=== PATIENT | female | born 1935 | race Caucasian/White ===

== ENCOUNTER → 2016-07-15 | Outpatient (REF) | payer MEDICARE ==
[~2016-07-15] MED LIST: ASPI81CH PO; ATOR1TAB19 PO; CARV6.25 PO; FURO40TA2 PO; GLIP10TA6 PO; LANTINJ4 SC; LISI-538 PO; METF1000 PO; MOME50SP; OMEP40CA2 PO; TYLE325T5 PO; VESI10TA PO
[2016-07-15 18:45] LABS: BASO % 0.5 % (0.0-1.0); EOS # 0.1 K/mm3 (0.0-0.50); LARGE UNSTAINED CELL # 0.2 K/mm3 (0.0-0.4); LARGE UNSTAINED CELL % 2.4 % (0.0-4.0); MEAN CORPUSCULAR HEMOGLOBIN 29.5 pg (27.0-33.0); MEAN CORPUSCULAR HGB CONC 32.7 g/dl (32.0-36.5); MEAN CORPUSCULAR VOLUME 90.3 fl (80.0-96.0); MONO # 0.5 K/mm3 (0.0-0.8); MONO % 7.2 % (0.0-5.0); NEUTROPHILS % 58.9 % (36.0-66.0); PLATELET COUNT, AUTOMATED 176 k/mm3 (150-450); RED CELL DISTRIBUTION WIDTH 12.7 % (11.5-14.5); WHITE BLOOD COUNT 6.7 K/mm3 (4.0-10.0)
[2016-07-15 19:20] LABS: ALBUMIN 4.1 GM/DL (3.2-5.2); ALBUMIN/GLOBULIN RATIO 1.21 (1.00-1.93); ALKALINE PHOSPHATASE 96 U/L (45-117); ALT/SGPT 27 U/L (12-78); ANION GAP 11 MEQ/L (8-16); AST/SGOT 32 U/L (15-37); BILIRUBIN,TOTAL 0.6 MG/DL (0.2-1.0); BLOOD UREA NITROGEN 19 MG/DL (7-18); CALCIUM LEVEL 9.4 MG/DL (8.8-10.2); CARBON DIOXIDE LEVEL 28 MEQ/L (21-32); CHLORIDE LEVEL 102 MEQ/L (98-107); CREATININE FOR GFR 0.89 MG/DL (0.55-1.02); GLOMERULAR FILTRATION RATE > 60.0 (>39); GLUCOSE, FASTING 132 MG/DL (83-110); POTASSIUM SERUM 4.4 MEQ/L (3.5-5.1); SODIUM LEVEL 141 MEQ/L (136-145); TOTAL PROTEIN 7.5 GM/DL (6.4-8.2)
== END ==
LOC: M SFHCCAPE 11:14
PROVIDERS: ATTEND Physician Assistant
DX: M54.5 Low back pain (principal); R10.9 Unspecified abdominal pain; E11.9 Type 2 diabetes mellitus without complications; Z79.82 Long term (current) use of aspirin; Z79.84 Long term (current) use of oral hypoglycemic drugs; Z79.899 Other long term (current) drug therapy
CPT/HCPCS: 80053; 85025; 86140; 87086; G0463

== ENCOUNTER → 2016-08-06 | Outpatient (CLI) | payer MEDICARE ==
[~2016-08-06] MED LIST changes: +GASTROGRAFIN SOLUTION 30ML (Q9963) As Ordered ONE; +ISOVUE-370 76% 100ML VIAL (Q9967) As Ordered ONE
--- NOTE | 2016-08-06 14:31 | REP ---
Clinical: Intermittent left lower quadrant pain. Technique: Axial contrast enhanced images from the lung bases to the pubic symphysis using oral and 100 ml Isovue 370 intravenous contrast material with coronal and sagittal re-formations. Findings: Lung bases clear. Mild cardiomegaly suggested. Subtle nodular contour to the liver suggests cirrhosis without focal hepatic lesion identified. Spleen, pancreas, gallbladder, bilateral adrenal glands and kidneys are relatively normal. The enteric system is without obstruction or acute inflammatory process. Scattered colonic and sigmoid diverticula noted without acute diverticulitis. Pelvis demonstrates normal bladder and evidence for prior hysterectomy. No free air. No ascites. No adenopathy. Abdominal aorta without aneurysm or dissection. Musculoskeletal structures demonstrate age-related changes without focal osseous abnormality. Impression: Liver contour suggest cirrhosis. Sigmoid diverticula without acute diverticulitis. No acute intra-abdominal or pelvic pathology appreciated. Signed by Kishan Delacruz MD 08/06/2016 02:23 P
== END ==
LOC: M RAD 12:08
PROVIDERS: ATTEND Physician Assistant
DX: R10.32 Left lower quadrant pain (principal)
CPT/HCPCS: 74178; Q9963; Q9967

== ENCOUNTER → 2016-08-20 | Outpatient (CLI) | payer MEDICARE ==
[~2016-08-20] MED LIST changes: -GASTROGRAFIN SOLUTION 30ML (Q9963) As Ordered ONE; -ISOVUE-370 76% 100ML VIAL (Q9967) As Ordered ONE
--- NOTE | 2016-08-20 13:16 | REP ---
CAROTID ULTRASOUND: Real-time ultrasound evaluation and duplex Doppler interrogation of the extracranial carotid vasculature is performed. There is mild plaquing and narrowing in both carotid bulbs extending into the internal and external carotid arteries. Luminal narrowing is less than 50%. There is no evidence of hemodynamically significant stenosis of either internal carotid artery. Normal flow velocities are seen. The vertebral arteries demonstrate normal direction of flow. RIGHT LEFT Peak systolic velocity ICA 77.7 cm/s 83.8 cm/s End diastolic velocity ICA 14.5 cm/s 17.7 cm/s Peak systolic velocity CCA 115.1 cm/s 108.7 cm/s Peak systolic velocity ECA 162 cm/s 59.3 cm/s ICA/CCA ratio 1.5 1.3 IMPRESSION: Bilateral luminal narrowing of the internal carotid arteries less than 50%. No evidence of hemodynamically significant stenosis. Incidental note is made of a nonspecific nodule in the right lobe of the thyroid measuring 6 x 3 x 4 mm. Signed by Marino Alfaro MD 08/20/2016 01:08 P
== END ==
LOC: M RAD 11:14
PROVIDERS: ATTEND Physician Assistant
DX: R09.89 Other specified symptoms and signs involving the circulatory and respiratory systems (principal)

== ENCOUNTER → 2016-08-26 | Outpatient (REF) | payer MEDICARE ==
[2016-08-26 17:14] LABS: ALBUMIN 3.9 GM/DL (3.2-5.2); ALBUMIN/GLOBULIN RATIO 1.15 (1.00-1.93); ALKALINE PHOSPHATASE 113 U/L (45-117); ALT/SGPT 23 U/L (12-78); ANION GAP 6 MEQ/L (8-16); AST/SGOT 29 U/L (15-37); BILIRUBIN,TOTAL 0.5 MG/DL (0.2-1.0); BLOOD UREA NITROGEN 17 MG/DL (7-18); CALCIUM LEVEL 8.7 MG/DL (8.8-10.2); CARBON DIOXIDE LEVEL 32 MEQ/L (21-32); CHLORIDE LEVEL 105 MEQ/L (98-107); CHOLESTEROL LEVEL 128 MG/DL (<200); GLOMERULAR FILTRATION RATE > 60.0 (>39); GLUCOSE, FASTING 136 MG/DL (83-110); POTASSIUM SERUM 4.2 MEQ/L (3.5-5.1); SODIUM LEVEL 143 MEQ/L (136-145); TOTAL PROTEIN 7.3 GM/DL (6.4-8.2); TRIGLYCERIDES LEVEL 111 MG/DL (<150)
[2016-08-26 17:20] LABS: BASO % 0.3 % (0.0-1.0); EOS # 0.2 K/mm3 (0.0-0.50); EOS % 2.6 % (0.0-3.0); LARGE UNSTAINED CELL # 0.1 K/mm3 (0.0-0.4); LYMPH # 1.9 K/mm3 (1.5-4.5); LYMPH % 27.7 % (24.0-44.0); MEAN CORPUSCULAR HEMOGLOBIN 29.8 pg (27.0-33.0); MEAN CORPUSCULAR HGB CONC 31.9 g/dl (32.0-36.5); MEAN CORPUSCULAR VOLUME 93.4 fl (80.0-96.0); MONO # 0.5 K/mm3 (0.0-0.8); MONO % 6.9 % (0.0-5.0); NEUTROPHILS # 4.3 K/mm3 (1.8-7.7); NEUTROPHILS % 60.6 % (36.0-66.0); PLATELET COUNT, AUTOMATED 172 k/mm3 (150-450); RED CELL DISTRIBUTION WIDTH 12.7 % (11.5-14.5)
== END ==
LOC: M SFHCCAPE 07:41
PROVIDERS: ATTEND Physician Assistant
DX: I10 Essential (primary) hypertension (principal); E11.8 Type 2 diabetes mellitus with unspecified complications

== ENCOUNTER → 2016-09-05 | Outpatient (CLI) | payer MEDICARE ==
--- NOTE | 2016-09-05 11:01 | REP ---
Thyroid ultrasound: A thyroid nodules identified on a a carotid ultrasound. The thyroid gland is normal size. The right lobe measures four point Sindi 1 0.5 x 1.5 cm. Left lobe measures 4.5 x 1.6 x 1.3 cm. The isthmus is 5.3 mm thickness. There is a 6 mm nodule in the right lobe upper pole. There is a 3 mm nodule right lobe mid pole. There is a 4 millimeter nodule in the right lobe lower pole. There is a 3 millimeter nodule left lobe upper pole. There is a 3 mm nodule in the left lobe lower. However, the left lateral half of the isthmus is diffusely heterogeneous and hypoechoic. This could represent a large irregular mass in the isthmus. Impression: Possible large irregular mass in the isthmus measuring 11 mm transversely by 4 mm in depth. Ultrasound-guided needle aspiration biopsy of this mass in the isthmus might be considered. There are several small nodules in the right and left lobes as described. Signed by Marino Zeng MD 09/05/2016 10:52 A
== END ==
LOC: M RAD 09:22
PROVIDERS: ATTEND Physician Assistant
DX: E04.9 Nontoxic goiter, unspecified (principal)

== ENCOUNTER → 2016-11-13 | Outpatient (REF) | payer MEDICARE ==
[2016-11-13 18:48] LABS: BASO % 0.6 % (0.0-1.0); EOS # 0.2 K/mm3 (0.0-0.50); EOS % 3.6 % (0.0-3.0); LARGE UNSTAINED CELL # 0.1 K/mm3 (0.0-0.4); LARGE UNSTAINED CELL % 1.7 % (0.0-4.0); LYMPH # 1.7 K/mm3 (1.5-4.5); LYMPH % 29.7 % (24.0-44.0); MEAN CORPUSCULAR HEMOGLOBIN 31.6 pg (27.0-33.0); MEAN CORPUSCULAR HGB CONC 33.3 g/dl (32.0-36.5); MEAN CORPUSCULAR VOLUME 94.9 fl (80.0-96.0); MONO # 0.4 K/mm3 (0.0-0.8); MONO % 7.8 % (0.0-5.0); NEUTROPHILS # 3.1 K/mm3 (1.8-7.7); NEUTROPHILS % 56.6 % (36.0-66.0); PLATELET COUNT, AUTOMATED 167 k/mm3 (150-450); RED CELL DISTRIBUTION WIDTH 12.7 % (11.5-14.5); WHITE BLOOD COUNT 5.5 K/mm3 (4.0-10.0)
[2016-11-13 20:33] LABS: ALBUMIN 3.8 GM/DL (3.2-5.2); ALBUMIN/GLOBULIN RATIO 1.15 (1.00-1.93); BILIRUBIN,TOTAL 0.4 MG/DL (0.2-1.0); CALCIUM LEVEL 9.5 MG/DL (8.8-10.2); CREATININE FOR GFR 1.1 MG/DL (0.55-1.02); GLOMERULAR FILTRATION RATE 50.9 (>32); POTASSIUM SERUM 4.2 MEQ/L (3.5-5.1); TOTAL PROTEIN 7.1 GM/DL (6.4-8.2)
== END ==
LOC: M SFHCCAPE 09:44
PROVIDERS: ATTEND Physician Assistant
DX: K74.60 Unspecified cirrhosis of liver (principal); E11.8 Type 2 diabetes mellitus with unspecified complications

== ENCOUNTER → 2016-11-20 | Outpatient (CLI) | payer MEDICARE ==
[~2016-11-20] MED LIST changes: +ACET160S6 PO; +ASPI1TAB PO; +CARV12.5 PO; +FURO40VL PO; +LISI40TAB PO; +METF500T PO; +PROA1AER INH; +PROBCAP4 PO
--- NOTE | 2016-12-11 00:25 | ECWPNPC ---
PATIENT NAME: GERARDO ELLSWORTH : 1935 GENDER: FEMALE VISIT DATE: 11/20/2016 DISCHARGE DATE: 11/20/16 1454 VISIT LOCKED DATE TIME: PHYSICIAN: GERMANIA DENIS RESOURCE: GERMANIA DENIS REASON FOR APPOINTMENT 1. ABDOMINAL PAIN LEFT HISTORY OF PRESENT ILLNESS TODAY'S VISIT: NOTES: REFERRED FOR FURTHER EVAL AND TREATMENT OF LEFT SIDED ABDOMENAL AND FLANK PAIN BY DR LILIANA MENJIVAR. ONSET OF PAIN WAS GREATER THAN 6 MONTHS AGO. SENSATION IS INTERMITTANT. DOES NOT KEEP HER AWAKE - FEELS LIKE A BEE STING INSIDE. STATRTS AT FLANK AREA AND RADIATES TOWARD THE GROIN. HAD "BUNCH" IN ABD FELT TO BE A FATTY MASS. NOTHING LIKE BEFORE. DOES NOT STOP ACTIVITY. DURATIONS IS A FEW MINUTES AND CAN REMAIN SORE AFTERWARDS. NO KNOWN AGGRAVATING FACTORS. NO KNOWN TRAUMAS OR ACCIDENTS. . FALL RISK SCREENING: SCREENING :NO FALLS IN THE PAST YEAR PAIN SCREENING: PATIENT HAS A COMPLAINT OF ACUTE OR CHRONIC PAIN :YES CURRENT MEDICATIONS TAKING ASPIR-81 81 MG TABLET DELAYED RELEASE 1 TABLET ORALLY ONCE A DAY TAKING TYLENOL EXTRA STRENGTH 500 MG TABLET 2 TABS ORALLY BID PRN, NOTES: HAS BEEN TAKING TID TAKING ONE TOUCH ULTRA TEST STRIPS - STRIPS 1 SQ ONCE A DAY TAKING PROBIOTIC 1 1 TAB(S) ORALLY DAILY TAKING ALCOHOL PREP PADS 70 % MISCELLANEOUS DIRECTED EXTERNALLY BID TAKING PROAIR HFA 108 (90 BASE) MCG/ACT AEROSOL SOLUTION 2 PUFFS NEEDED INHALATION EVERY 4 HRS TAKING ATORVASTATIN CALCIUM 10 MG TABLET 1 TAB(S) ORAL DAILY TAKING LANCETS _ MISCELLANEOUS DIRECTED TEST QD - BID TAKING VESICARE 10 MG TABLET 1 TABLET ORALLY ONCE A DAY TAKING OMEPRAZOLE 40MG 40 MG TABLET 1 TAB(S) ORALLY DAILY TAKING ONETOUCH ULTRA TEST - STRIP TEST ONCE DAILY TAKING CARVEDILOL 12.5MG TABLET 1 TAB(S) ORAL BID TAKING LISINOPRIL 40 40 MG TABLET 1 TAB(S) ORAL DAILY TAKING FUROSEMIDE 40 MG TABLET 1 TABLET ORALLY ONCE A DAY TAKING METFORMIN HCL 500 MG TABLET 1 TABLET WITH LUNCH ORALLY ONCE A DAY TAKING LANTUS SOLOSTAR 100 UNIT/ML SOLUTION PEN-INJECTOR 55 UNITS SUBCUTANEOUS IN THE EVENING TAKING METFORMIN HCL 1000MG TAB 1 TAB BID WITH MEALS NOT-TAKING ZOSTAVAX 99631 UNT/0.65ML SOLUTION RECONSTITUTED DIRECTED SUBCUTANEOUS DIRECTED NOT-TAKING ALBUTEROL SULFATE HFA 108 (90 BASE) MCG/ACT AEROSOL SOLUTION 2 PUFFS NEEDED INHALATION EVERY 4 HRS NOT-TAKING BENADRYL 25 MG TABLET 1-2 TABLETS NEEDED ORALLY EVERY NIGHT BEFORE BED NOT-TAKING CYCLOBENZAPRINE HCL 5 MG TABLET 1 TABLET ORALLY THREE TIMES A DAY NEEDED NOT-TAKING GABAPENTIN 300 MG CAPSULE 1 CAPSULE ORALLY TWICE DAILY MEDICATION LIST REVIEWED AND RECONCILED WITH THE PATIENT PAST MEDICAL HISTORY HYPERTENSION TYPE II DIABETES ARTHRITIS CHF 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 AT ONE POINT SHE HAD POLYPS, HOWEVER THE LAST COLONOSCOPY [address] HENDERSON REVEALED NO POLYPS COLONOSPOPY 11/12/15 FAMILY HISTORY FATHER: 77 YRS, OLD AGE MOTHER: 48 YRS, HEMORRHAGE AFTER CHILDBIRTH SIBLINGS: ALIVE, NO KNOWN MEDICAL PROBLEMS,ONLY LIVING SIBLING.ONE SISTER WITH BREAST CANCER AGE 68,ONE SISTER WITH LEUKEMIA AGE 61 SON(S): ALIVE, DM 1 SISTER(S) - HEALTHY. 2 SON(S) , 2 DAUGHTER(S) - HEALTHY. UNKNOWN FAMILY HX. SOCIAL HISTORY GENERAL: TOBACCO USE ARE YOU A:FORMER SMOKER HOW LONG HAS IT BEEN SINCE YOU LAST SMOKED?> 10 YEARS VAPORNO E-CIGARETTENO BMI CARE GOAL FOLLOW-UP ABOVE NORMAL BMI FOLLOW-UPDIETARY MANAGEMENT EDUCATION, GUIDANCE, AND COUNSELING ALCOHOL SCREENING POINTS: 0, INTERPRETATION: NEGATIVE. RECREATIONAL DRUG USE DENIES. CAFFEINE CAFFEINE USE?NO HIV / HEP-C SCREENING HIV TEST OFFERED TO PATIENT:NO NOT HEP-C TEST OFFERED TO PATIENT:NO BORN [birth year] OCCUPATION: RETIRED. DIET: REGULAR. EXERCISE: NO REGULAR EXERCISE. MARITAL STATUS: . QUAKER [id number] [employer]ANGEL[employer]ANGUAGE ROMANIAN. EDUCATION LEVEL OF EDUCATION:HIGH SCHOOL LEARNING BARRIERS / SPECIAL NEEDS CHANGE FROM LAST VISIT?NO 11/18/2016 BARRIERS TO LEARNING?NO HEARING IMPAIRED?NO VISION IMPAIRED?YES :CORRECTIVE LENSES COGNITIVELY IMPAIRED?NO READINESS TO LEARN?YES LEARNING PREFERENCES?NO LEARNING CAPABILITIES PRESENT?YES EMOTIONAL BARRIERS?NO SPECIAL DEVICES?NO FPGA DESIGN ENGINEER NEEDED?NO NEW PATIENT PAIN DIARY FROM 0-10, WHAT NUMBER IS YOUR PAIN TODAY? 0. PAIN CLINIC PFS, CLERGY, PUBLIC HEALTH REFERRALS PFS REFERRAL NEEDED?NO CLERGY REFERRAL NEEDED?NO PUBLIC HEALTH REFERRAL NEEDED?NO ADVANCE DIRECTIVES HEALTH CARE PROXY?YES NAME OF HCP [facility] CONTACT # FOR HCP DO YOU HAVE A COPY WITH YOU?NO INSTRUCTED TO BRING IN DO YOU HAVE A DNR?NO LIVING WILL?YES DO YOU HAVE A COPY WITH YOU?NO INSTRUCTED TO BRING IN POWER OF PATHOLOGY SECRETARY/TRANSCRIPTIONIST?YES NAME OF POA? [facility] PHONE # OF POA? ABOVE DO YOU HAVE A COPY WITH YOU?NO INSTRUCTED TO BRING IN. RETIRED: YES. TRAVEL OUTSIDE US: NONE. NO DOMESTIC VIOLENCE . IS IN [facility]. NO HISTORY OF EATING DISORDER. NO HISTORY OF PHYSICAL, SEXUAL ABUSE. WEARS SEAT BELTS. CURRENT WITH TETANUS. DID GET PNEUMONIA VACCINE. DOES GET FLU SHOTS. UP TO DATE WITH DENTAL AND EYE EXAMS. SEES [facility] FOR PRIMARY CARE. HOSPITALIZATION/MAJOR DIAGNOSTIC PROCEDURE SURGERIES CHILDBIRTH X 4 REVIEW OF SYSTEMS CONSTITUTIONAL: ANY CHANGE IN YOUR MEDICAL CONDITION? NO . CHILLS NO . FEVER NO . INFECTION: DO YOU HAVE NEW INFECTIONS? NO . DO YOU HAVE HISTORY OF MRSA? NO . MUSCULOSKELETAL: ANY NEW PATTERNS OF PAIN OR NUMBNESS? NO . SYTEMIC LUPUS NO . GASTROENTEROLOGY: ANY NEW CHANGE IN BOWEL CONTROL? NO . BARRETTS ESOPHAGUS NO . CIRRHOSIS NO . HEPATITIS NO . LIVER FAILURE NO . ACID REFLUX YES . UNEXPLAINED WEIGHT LOSS NO . GENITOURINARY: ANY NEW CHANGE IN BLADDER CONTROL? NO . IS THERE A CHANCE YOU COULD BE ? NO . HEMATOLOGY/LYMPH: DO YOU TAKE ANY BLOOD THINNERS? (FOR EXAMPLE- COUMADIN, PLAVIX, AGGRENOX, PLATEL, PRADAXA, OR XARELTO) NO . WHEN WAS YOUR LAST DOSE? DATE: TIME: . LOW PLATELET COUNT NO . SICKLE CELL DISEASE NO . VON WILLIEBRANDS NO . FACTOR V LEIDEN NO . THALLASEMIA NO . ANEMIA NO . EASY BRUISING NO . NEUROLOGY: HAVE YOU FALLEN IN THE PAST 6 MONTHS? NO . ANY NEW EXTREMITY NUMBNESS OR WEAKNESS? NO . HEAD INJURY NO . DEMENTIA NO . CEREBRAL PALSY NO . MULTIPLE SCLEROSIS NO . DIZZINESS NO . HEADACHE NO . STROKES NO . VERTIGO NO . CARDIOLOGY: DO YOU HAVE A PACEMAKER OR DEFIBRILLATOR? NO . ANGINA NO . HEART ATTACK NO . HEART SURGERY NO . CONGESTIVE HEART FAILURE/FLUID OVERLOAD YES . CHEST PAIN NO . HIGH BLOOD PRESSURE ON MEDICATION(S) . IRREGULAR HEART BEAT NO . RESPIRATORY: HAVE YOU BEEN SICK IN THE PAST WEEK? NO . FEVER NO . FLU LIKE SYMPTOMS? NO . CPAP NO . BYPAP NO . ASTHMA YES . EMPHYSEMA NO . CHRONIC LUNG DISEASES NO . SHORTNESS OF BREATH ON EXERTION YES, SOMETIMES . COUGH NO . SNORING YES, NEVER BEEN TESTED FOR ROSS . INTEGUMENTARY: DO YOU HAVE ANY RASHES OR OPEN SORES? NO . ALLERGIC/IMMUNO: ARE YOU ALLERGIC TO SHELLFISH OR IV DYE? NO . ANY NEW ALLERGIES? NO . PSYCHIATRIC: DO YOU HAVE THOUGHTS OF HURTING YOURSELF OR SOMEONE ELSE? NO . ARE YOU ABUSED, NEGLECTED, OR IN AN UNSAFE ENVIRONMENT? NO . ENDOCRINOLOGY: ARE YOU DIABETIC? YES BS THIS A< 130 . THYROID DISORDER THYROID NODULES . OTHER: DO YOU NEED ANY PRESCRIPTIONS? NO . IF YES, PLEASE LIST: ____ . ANY NEW PROBLEMS WITH YOUR MEDICATIONS? NO . WHEN DID YOU LAST EAT? ____ . WHEN DID YOU LAST DRINK? ____ . WHAT DID YOU LAST DRINK? ____ . NAME OF PERSON DRIVING YOU HOME? ____ . DO YOU HAVE ANY OTHER QUESTIONS OR CONCERNS NO . PSYCHOLOGY: BECKS DEPRESSION INVENTORY DID NOT COMPLETE INVENTORY - DENIES SUICIDAL OR HOMICIDAL IDEATION . REVIEWED BY: PROVIDER: GERMANIA JIN . VITAL SIGNS WT 203.2 LBS, HT 63 IN, BMI 35.99 INDEX, BP 190/71 MM HG, REPEAT BP 169/73 MM HG, HR 77 /MIN, RR 18 /MIN, TEMP 97.1 F, OXYGEN SAT % 95%, NA INITIALS SC 13:29, REVIEWED BY: AD. EXAMINATION GENERAL EXAMINATION: PSYCHALERT , ORIENTED X 3 , APPROPRIATE MOOD AND AFFECT . HEENT:NORMOCEPHALIC, NO LYPHADENOPATHY, NO PALPABLR THYROID NODULES. LUNGS:CLEAR TO AUSCULTATION BILATERALLY, NO WHEEZES, RALES OR RHONCHI. HEART:HEART RATE REGULAR, NO MURMURS, CLICK OR RUBS. ABDOMEN:SOFT, NON-TENDER, NO ORGANOMEGALY, BOWEL SOUNDS ARE NORMAL. NO TENDERNESS OVER RIGHT OR LEFT GROIN/ILIO-INGUINAL REGIONS. MUSCULOSKELETAL:TRIGGER POINTS AND TIGHT FIBROUS BANDS FROM LEFT LOW BACK AT L2-3 LEVEL WITH RADIATION TO LEFT FLANK AND ABDOMEN. MINIMAL TENDERNESS WITH PALPATION OVER LUMBAR SPINOUS PROCESSES. , MUSCLE STRENGTH TESTING 5/5 BILATERALUPPER AND LOWER EXTREMITIES. CAN FLEX TO 90 DEGREES, EXTREND TO 10 DEDREES, PAIN WITH ROTATATION. NEG SLR. SOME DISCOMFORT WITH DELTA TESTING LEFT SIDE, AND WITH PELVIC COMPRESSION LEFT SIDE.. EXTREMITIES:NO EDEMA. NEUROLOGIC EXAM:DTR'S 1+ BILATERAL UPPER AND LOWER EXTREMITIES. NO SENSORY DEFICIET TO LIGHT TOUCH OVER LOER EXTREMITIES. DIAGNOSTIC TESTS REVIEWEDMRI OF LUMBAR SPINE COMPLETED 07/09/16 REVIEWED. ASSESSMENTS MYOFASCIAL PAIN ON LEFT SIDE - M79.1 (PRIMARY) TREATMENT MYOFASCIAL PAIN ON LEFT SIDE TRIGGER POINT 3 + FARIHAGERMANIA Arturo 11/20/2016 2:21:35 PM > LEFT FLANK LOW BACK NOTES: CONTINUE HEAT, ICE PACK IF NEEDED. HOLD DIABETES MEDICATIONS MORNING OF INJECTION. CHECK BLOOD SUGAR AM OF PROCEDURE AND BRING RESULTS TO DEPARTMENT. ,TRIGGER POINT INJECTION MATERIAL WAS PRINTED,TRIGGER POINT INJECTION: YOUR EXPERIENCE MATERIAL WAS PRINTED. CLINICAL NOTES: #128 - SCREENING BMI AND F/U PLAN IN : BMI ABOVE NORMAL TODAY. DISCUSSED WITH PATIENT NUTRITIONAL FOOD CHOICES TO ASSIST WITH WEIGHT LOSS. RECCOMMENDED REDUCING SALT, SUGAR, SODA INTAKE. RECOMMEND INCREASE ACTIVITY TO INCLUDE WALKING ON A REGULAR BASIS. PROCEDURE CODES FA211 ESTABILISHED PATIENT [facility] FACILITY CHARGE G8783 BP SCR PRFRM RCMDD DEFIND SCR INTVL G8730 PAIN ASSESS POS TOOL F/U PLAN DOC 3016F PT SCRND UNHLTHY [place] USE 1123F ACP DISCUSS/DSCN MKR DOCD 1036F TOBACCO NON-USER G8427 DOC MEDS VERIFIED W/PT OR RE G8417 BMI >=30 CALCUATE W/FOLLOWUP 3288F FALL RISK ASSESSMENT DOCD DISPOSITION & COMMUNICATION FOLLOW UP AFTER INJECTION (REASON: CHECK AUTH FOR TPI LEFT FLANK/LOW BACK) ELECTRONICALLY SIGNED BY ASA WORLEY ON 12/10/2016 AT 09:06 AM EDT DISCLAIMER : THIS IS A VISIT SUMMARY EXTRACTED FROM THE [employer] [facility] [employer] CHART. IT IS NOT A COPY OF THE [employer] [facility] [employer] PROGRESS NOTE. MTDD
== END ==
LOC: M PAIN 13:20
PROVIDERS: ATTEND Nurse Practitioner Family
DX: G89.29 Other chronic pain (principal); M79.1 Myalgia; M54.32 Sciatica, left side; E11.8 Type 2 diabetes mellitus with unspecified complications; K21.9 Gastro-esophageal reflux disease without esophagitis; E78.5 Hyperlipidemia, unspecified; I11.9 Hypertensive heart disease without heart failure; I50.9 Heart failure, unspecified; I35.9 Nonrheumatic aortic valve disorder, unspecified; I27.2 Other secondary pulmonary hypertension; R32 Unspecified urinary incontinence; J45.909 Unspecified asthma, uncomplicated; G47.9 Sleep disorder, unspecified; K74.60 Unspecified cirrhosis of liver; K44.9 Diaphragmatic hernia without obstruction or gangrene; Z88.0 Allergy status to penicillin; Z88.1 Allergy status to other antibiotic agents; Z79.82 Long term (current) use of aspirin; Z79.4 Long term (current) use of insulin; Z79.899 Other long term (current) drug therapy; Z87.891 Personal history of nicotine dependence

== ENCOUNTER → 2016-11-25 | Outpatient (REF) | payer MEDICARE ==
[~2016-11-25] MED LIST changes: -ACET160S6 PO; -ASPI1TAB PO; -CARV12.5 PO; -FURO40VL PO; -LISI40TAB PO; -METF500T PO; -PROA1AER INH; -PROBCAP4 PO
== END ==
LOC: M SFHCCAPE 16:27
PROVIDERS: ATTEND Physician Assistant
DX: K74.60 Unspecified cirrhosis of liver (principal)

== ENCOUNTER → 2016-12-19 | Outpatient (CLI) | payer MEDICARE ==
[~2016-12-19] MED LIST changes: +ACET160S6 PO; +ASPI1TAB PO; +BUPIVACAINE HCL 0.25% 10 ML VIAL As Ordered ONE; +BUPIVACAINE HCL 0.25% 30 ML VIAL As Ordered ONE; +CARV12.5 PO; +FURO40VL PO; +LISI40TAB PO; -METF1000 PO; +METF10004 PO; +METF500T13 PO; +PROAAER10 INH; +PROBCAP4 PO; +TRIAMCINOLONE ACETONIDE SUSP 40 MG/ML VIAL (J3301) As Ordered ONE; -VESI10TA PO; +VESI10TA2 PO
--- NOTE | 2016-12-28 23:56 | ECWPNPC ---
PATIENT NAME: GERARDO ELLSWORTH : 1935 GENDER: FEMALE VISIT DATE: 12/19/2016 DISCHARGE DATE: 12/19/16 1021 VISIT LOCKED DATE TIME: PHYSICIAN: FRANCISCO LANG RESOURCE: FRANCISCO LANG REASON FOR APPOINTMENT 1. L SIDE/HIP HISTORY OF PRESENT ILLNESS HISTORY OF PRESENT ILLNESS: PAIN THE PATIENT DESCRIBES THE PAIN... FALL RISK SCREENING: SCREENING :NO FALLS IN THE PAST YEAR CURRENT MEDICATIONS TAKING ASPIR-81 81 MG TABLET DELAYED RELEASE 1 TABLET ORALLY ONCE A DAY, NOTES: 12-18-161199 TAKING TYLENOL EXTRA STRENGTH 500 MG TABLET 2 TABS ORALLY BID PRN, NOTES: 12-18-161199 TAKING ONE TOUCH ULTRA TEST STRIPS - STRIPS 1 SQ ONCE A DAY TAKING PROBIOTIC 1 1 TAB(S) ORALLY DAILY, NOTES: 12-18-16799 TAKING ALCOHOL PREP PADS 70 % MISCELLANEOUS DIRECTED EXTERNALLY BID TAKING PROAIR HFA 108 (90 BASE) MCG/ACT AEROSOL SOLUTION 2 PUFFS NEEDED INHALATION EVERY 4 HRS, NOTES: 12-18-162099 TAKING ATORVASTATIN CALCIUM 10 MG TABLET 1 TAB(S) ORAL DAILY, NOTES: 12-17-162099 TAKING LANCETS _ MISCELLANEOUS DIRECTED TEST QD - BID TAKING VESICARE 10 MG TABLET 1 TABLET ORALLY ONCE A DAY, NOTES: 12-18-16799 TAKING OMEPRAZOLE 40MG 40 MG TABLET 1 TAB(S) ORALLY DAILY, NOTES: 12-18-16799 TAKING ONETOUCH ULTRA TEST - STRIP TEST ONCE DAILY TAKING CARVEDILOL 12.5MG TABLET 1 TAB(S) ORAL BID, NOTES: 12-18-16799 TAKING LISINOPRIL 40 40 MG TABLET 1 TAB(S) ORAL DAILY, NOTES: 12-18-16799 TAKING FUROSEMIDE 40 MG TABLET 1 TABLET ORALLY ONCE A DAY, NOTES: 12-18-16799 TAKING METFORMIN HCL 500 MG TABLET 1 TABLET WITH LUNCH ORALLY ONCE A DAY, NOTES: 12-18-161199 TAKING LANTUS SOLOSTAR 100 UNIT/ML SOLUTION PEN-INJECTOR 55 UNITS SUBCUTANEOUS IN THE EVENING, NOTES: 12-18-162099 TAKING METFORMIN HCL 1000MG TAB 1 TAB BID WITH MEALS, NOTES: 12-18-16799 NOT-TAKING ZOSTAVAX 73281 UNT/0.65ML SOLUTION RECONSTITUTED DIRECTED SUBCUTANEOUS DIRECTED NOT-TAKING ALBUTEROL SULFATE HFA 108 (90 BASE) MCG/ACT AEROSOL SOLUTION 2 PUFFS NEEDED INHALATION EVERY 4 HRS NOT-TAKING BENADRYL 25 MG TABLET 1-2 TABLETS NEEDED ORALLY EVERY NIGHT BEFORE BED NOT-TAKING CYCLOBENZAPRINE HCL 5 MG TABLET 1 TABLET ORALLY THREE TIMES A DAY NEEDED NOT-TAKING GABAPENTIN 300 MG CAPSULE 1 CAPSULE ORALLY TWICE DAILY MEDICATION LIST REVIEWED AND RECONCILED WITH THE PATIENT PAST MEDICAL HISTORY HYPERTENSION TYPE II DIABETES ARTHRITIS CHF 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 CONSTITUTIONAL: ANY CHANGE IN YOUR MEDICAL CONDITION? NO . CHILLS NO . FEVER NO . INFECTION: DO YOU HAVE NEW INFECTIONS? NO . DO YOU HAVE HISTORY OF MRSA? NO . MUSCULOSKELETAL: ANY NEW PATTERNS OF PAIN OR NUMBNESS? NO . GASTROENTEROLOGY: ANY NEW CHANGE IN BOWEL CONTROL? NO . GENITOURINARY: ANY NEW CHANGE IN BLADDER CONTROL? NO . IS THERE A CHANCE YOU COULD BE ? NO . HEMATOLOGY/LYMPH: DO YOU TAKE ANY BLOOD THINNERS? (FOR EXAMPLE- COUMADIN, PLAVIX, AGGRENOX, PLATEL, PRADAXA, OR XARELTO) NO . WHEN WAS YOUR LAST DOSE? DATE: TIME: . NEUROLOGY: HAVE YOU FALLEN IN THE PAST 6 MONTHS? NO . ANY NEW EXTREMITY NUMBNESS OR WEAKNESS? NO . CARDIOLOGY: DO YOU HAVE A PACEMAKER OR DEFIBRILLATOR? NO . RESPIRATORY: HAVE YOU BEEN SICK IN THE PAST WEEK? NO . FEVER NO . FLU LIKE SYMPTOMS? NO . COUGH NO . INTEGUMENTARY: DO YOU HAVE ANY RASHES OR OPEN SORES? NO . ALLERGIC/IMMUNO: ARE YOU ALLERGIC TO SHELLFISH OR IV DYE? NO . ANY NEW ALLERGIES? NO . PSYCHIATRIC: DO YOU HAVE THOUGHTS OF HURTING YOURSELF OR SOMEONE ELSE? NO . ARE YOU ABUSED, NEGLECTED, OR IN AN UNSAFE ENVIRONMENT? NO . ENDOCRINOLOGY: ARE YOU DIABETIC? YES FSBS= 195 @ 0630 . OTHER: DO YOU NEED ANY PRESCRIPTIONS? NO . IF YES, PLEASE LIST: ____ . ANY NEW PROBLEMS WITH YOUR MEDICATIONS? NO . WHEN DID YOU LAST EAT? 12/18/16 8PM . WHEN DID YOU LAST DRINK? 12-18-16 8PM . WHAT DID YOU LAST DRINK? PEPSI AND WATER . NAME OF PERSON DRIVING YOU HOME? OFELIA MCKEONCOLBYANDIE . DO YOU HAVE ANY OTHER QUESTIONS OR CONCERNS NO . VITAL SIGNS WT 203.2 LBS, HT 63 IN, BMI 35.99 INDEX, BP 190/70 MM HG, HR 75 /MIN, RR 18 /MIN, TEMP 97.2 F, OXYGEN SAT % 96%, NA INITIALS AW 0850, REVIEWED BY: [email or web address]. ASSESSMENTS MYALGIA - M79.1 (PRIMARY) PROCEDURES PN TRIGGER POINT INJECTION WITH STEROIDS PRE PROCEDURE DIAGNOSIS 1. MYALGIA 2. PAIN AT LEFT LOWER BACK AREA POST PROCEDURE DIAGNOSIS 1. MYALGIA 2. PAIN AT LEFT LOWER BACK AREA PROCEDURE TRIGGER POINT INJECTION AT LEFT LOWER BACK AREA SURGEON DR. FRANCISCO LANG MEATCUTTER NONE ANESTHESIA LOCAL PRE PROCEDURE NOTE THE PATIENT HAS A HISTORY OF CHRONIC PAIN AT THE LEFT LOWER BACK AREA. I EVALUATE THE PATIENT AND REVIEWED THE CHART. THERE IS EVIDENCE OF BANDS OF TISSUE WITH RESTRICTION OF MOVEMENT AND PRESENCE OF TRIGGER POINT AT THE AFFECTED AREA. I WENT OVER THE RISKS, ALTERNATIVES, AND BENEFITS ASSOCIATED WITH THIS PROCEDURE. THE PATIENT WOULD LIKE TO PROCEED AND GIVE CONSENT TO PERFORMED THE PROCEDURE. THE PATIENT DENIES UNEXPLAINABLE WEIGHT LOSS, FEVER, CHILLS, OR NEW CHANGES IN URINARY OR BOWEL CONTROL DESCRIPTION OF PROCEDURE THE PATIENT WAS BROUGHT TO THE PROCEDURE ROOM AND PLACED IN THE SITTING POSITION. THE AREA WAS CLEANED WITH ALCOHOL. THE PROCEDURE WAS DONE USING ASEPTIC STERILE TECHNIQUE. I CHECKED LATERALITY AND THE LEVEL WHERE THE PROCEDURE WAS GOING TO BE PERFORMED WITH THE PATIENT AND THE SUPPORTING STAFF AT THE MOMENT OF THE TIME OUT IN THE PROCEDURE ROOM. USING A 25-GAUGE NEEDLE, TRIGGER POINTS WERE INJECTED AT THE LEFT LOWER BACK AREA WITH A TOTAL OF 40 ML OF BUPIVACAINE 0.25% AND KENALOG 40 MG. THERE WAS NO EVIDENCE OF BLOOD, PARESTHESIA OR CEREBROSPINAL FLUID DURING THE PROCEDURE. THE PATIENT WAS SENT TO THE RECOVERY ROOM. THE PATIENT WAS MOVING THE EXTREMITIES AND DOING WELL. THERE WAS NO COMPLICATION DURING THE PROCEDURE POST PROCEDURE NOTE THE PATIENT WILL BE SEEN IN A FOLLOW UP IN THE NEXT FEW WEEKS. INSTRUCTIONS WERE GIVEN, QUESTIONS WERE ANSWERED, AND THE PATIENT EXPRESSED UNDERSTANDING AND AGREES WITH THE PLAN. I, JONI KEARNS, DOCUMENTED THE ABOVE INFORMATION ACTING A SCRIBE FOR DR. LANG. I, DR. LANG, HAVE REVIEWED THE ABOVE DOCUMENT, SCRIBED BY JONI SHAMPINE, AND I VERIFY THAT IT IS ACCURATE PROCEDURE CODES 88474 INJ TRIGGER POINT 1/2 MUSCL DISPOSITION & COMMUNICATION FOLLOW UP 3 WEEKS ELECTRONICALLY SIGNED BY FRANCISCO LANG MD ON 12/28/2016 AT 07:29 PM EDT DISCLAIMER : THIS IS A VISIT SUMMARY EXTRACTED FROM THE [employer] CHART. IT IS NOT A COPY OF THE [employer] PROGRESS NOTE. DAVID
== END ==
LOC: M PAIN 08:30
PROVIDERS: ATTEND Anesthesiology
DX: G89.29 Other chronic pain (principal); M79.1 Myalgia; M54.5 Low back pain; Z79.82 Long term (current) use of aspirin; Z79.84 Long term (current) use of oral hypoglycemic drugs; Z79.4 Long term (current) use of insulin; Z79.899 Other long term (current) drug therapy; Z88.0 Allergy status to penicillin; Z88.1 Allergy status to other antibiotic agents
CPT/HCPCS: 20552; J3301

== ENCOUNTER → 2016-12-24 | Outpatient (CLI) | payer MEDICARE ==
[~2016-12-24] VITALS: Ht 157.5 cm; Wt 91.6 kg
[~2016-12-24] MED LIST changes: -BUPIVACAINE HCL 0.25% 10 ML VIAL As Ordered ONE; -BUPIVACAINE HCL 0.25% 30 ML VIAL As Ordered ONE; +LIDOCAINE 2% INJ 100 MG/5 ML SYRINGE As Ordered ONE; +NS 1,000 ML IV ONE; +PROPOFOL 200 MG/20 ML VIAL As Ordered ONE; -TRIAMCINOLONE ACETONIDE SUSP 40 MG/ML VIAL (J3301) As Ordered ONE
--- NOTE | 2016-12-24 10:50 | ROOR ---
Patient Name: May Walden Procedure Date: 12/24/2016 10:37 AM Date of : 1935 Age: 81 Room: [facility] Gender: Female Note Status: Finalized Procedure: Upper GI endoscopy Indications: Cirrhosis rule out esophageal varices Providers: Gianni Morrow MD Referring MD: SIERRA WELSH DO Requesting Provider: Medicines: Monitored Anesthesia Care Complications: No immediate complications. Procedure: Pre-Anesthesia Assessment: - The heart rate, respiratory rate, oxygen saturations, blood pressure, adequacy of pulmonary ventilation, and response to care were monitored throughout the procedure. The Endoscope was introduced through the mouth, and advanced to the second part of duodenum. The upper GI endoscopy was accomplished without difficulty. The patient tolerated the procedure well. Findings: The Z-line was regular and was found 40 cm from the incisors. There is no endoscopic evidence of varices in the entire esophagus. No other significant abnormalities were identified in a careful examination of the stomach. The exam of the duodenum was otherwise normal. Impression: - Z-line regular, 40 cm from the incisors. - No specimens collected. - The examination was otherwise normal. Recommendation: - Discharge patient to home. - Resume previous diet. - Continue present medications. - Return to referring physician. - Follow an antireflux regimen. - The findings and recommendations were discussed with the patient's family. Gianni Morrow MD Gianni Morrow MD 12/24/2016 10:50:04 AM This report has been signed electronically. Number of Addenda: 0 Note Initiated On: 12/24/2016 10:37 AM Estimated Blood Loss: Estimated blood loss: none.
--- NOTE | 2016-12-24 11:06 | ROOR ---
Patient Name: May Walden Procedure Date: 12/24/2016 10:38 AM Date of : 1935 Age: 81 Room: [facility] Gender: Female Note Status: Finalized Procedure: Total Colonoscopy to Cecum Indications: High risk colon cancer surveillance: Personal history of adenoma with villous component, Last colonoscopy: 2014 Providers: Gianni Morrow MD Referring MD: SIERRA WELSH DO Requesting Provider: Medicines: Monitored Anesthesia Care Complications: No immediate complications. Procedure: Pre-Anesthesia Assessment: - The heart rate, respiratory rate, oxygen saturations, blood pressure, adequacy of pulmonary ventilation, and response to care were monitored throughout the procedure. The Colonoscope was introduced through the anus and advanced to the cecum, identified by appendiceal orifice and ileocecal valve. The colonoscopy was performed without difficulty. The patient tolerated the procedure well. The quality of the bowel preparation was excellent. Findings: The perianal and digital rectal examinations were normal. Non-bleeding internal hemorrhoids were found during retroflexion. The hemorrhoids were small and Grade I (internal hemorrhoids that do not prolapse). 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 No other significant abnormalities were identified in a careful examination of the remainder of the colon. The exam was otherwise without abnormality on direct and retroflexion views. Impression: - Non-bleeding internal hemorrhoids. - Rectal varices. - The examination was otherwise normal on direct and retroflexion views. - No specimens collected. - The exam was otherwise normal to the cecum. Recommendation: - Patient has a contact number available for emergencies. The signs and symptoms of potential delayed complications were discussed with the patient. Return to normal activities tomorrow. Written discharge instructions were provided to the patient. - High fiber diet. - Discharge patient to home. - Continue present medications. - Repeat colonoscopy for symptoms only. - Return to referring physician. - The findings and recommendations were discussed with the patient's family. Gianni Morrow MD Gianni Morrow MD 12/24/2016 11:06:05 AM This report has been signed electronically. Number of Addenda: 0 Note Initiated On: 12/24/2016 10:38 AM Estimated Blood Loss: Estimated blood loss: none.
[2016-12-24 11:30] VITALS: BP 189/95
== END | disposition home or self-care (01) ==
LOC: M OPP 09:22
PROVIDERS: ATTEND Internal Medicine Gastroenterology
DX: Z09 Encounter for follow-up examination after completed treatment for conditions other than malignant neoplasm (principal); Z86.010 Personal history of colon polyps; K64.0 First degree hemorrhoids; I86.4 Gastric varices; K74.60 Unspecified cirrhosis of liver; K21.9 Gastro-esophageal reflux disease without esophagitis; I10 Essential (primary) hypertension; E78.5 Hyperlipidemia, unspecified; R01.1 Cardiac murmur, unspecified; E11.9 Type 2 diabetes mellitus without complications; K44.9 Diaphragmatic hernia without obstruction or gangrene; R12 Heartburn; M19.90 Unspecified osteoarthritis, unspecified site; J45.909 Unspecified asthma, uncomplicated; R32 Unspecified urinary incontinence; Z87.891 Personal history of nicotine dependence; Z88.0 Allergy status to penicillin; Z88.2 Allergy status to sulfonamides; Z79.82 Long term (current) use of aspirin; Z79.4 Long term (current) use of insulin; Z79.84 Long term (current) use of oral hypoglycemic drugs; Z79.899 Other long term (current) drug therapy; Z80.0 Family history of malignant neoplasm of digestive organs; Z80.3 Family history of malignant neoplasm of breast; Z80.1 Family history of malignant neoplasm of trachea, bronchus and lung; Z80.6 Family history of leukemia; Z80.42 Family history of malignant neoplasm of prostate

== ENCOUNTER → 2017-01-05 | Outpatient (CLI) | payer MEDICARE ==
[~2017-01-05] MED LIST changes: -LIDOCAINE 2% INJ 100 MG/5 ML SYRINGE As Ordered ONE; -NS 1,000 ML IV ONE; -PROPOFOL 200 MG/20 ML VIAL As Ordered ONE
--- NOTE | 2017-01-26 00:07 | ECWPNPC ---
PATIENT NAME: GREARDO ELLSWORTH : 1935 GENDER: FEMALE VISIT DATE: 01/05/2017 DISCHARGE DATE: 01/05/17 0945 VISIT LOCKED DATE TIME: PHYSICIAN: GERMANIA DENIS RESOURCE: GERMANIA DENIS REASON FOR APPOINTMENT 1. POST PROCEDURE HISTORY OF PRESENT ILLNESS HISTORY OF PRESENT ILLNESS: PAIN THE PATIENT DESCRIBES THE PAIN... FALL RISK SCREENING: SCREENING :NO FALLS IN THE PAST YEAR TODAY'S VISIT: NOTES: RATES PAIN LEVEL TODAY 07/01. S/P TPI 12/19/16 NOTES ALMOST NO BACK PAIN BUT IS STILL HAVING "BEE STNGS" IN RIGHT FLANK AND ABD. THESE ARE INTERMITTANT AND DO NOT OCCUR IN CLUSTER. THESE CAN VARY IN INTENSITY. . CURRENT MEDICATIONS TAKING ASPIR-81 81 MG TABLET DELAYED RELEASE 1 TABLET ORALLY ONCE A DAY TAKING TYLENOL EXTRA STRENGTH 500 MG TABLET 2 TABS ORALLY BID PRN TAKING ONE TOUCH ULTRA TEST STRIPS - STRIPS 1 SQ ONCE A DAY TAKING PROBIOTIC 1 1 TAB(S) ORALLY DAILY TAKING ALCOHOL PREP PADS 70 % MISCELLANEOUS DIRECTED EXTERNALLY BID TAKING PROAIR HFA 108 (90 BASE) MCG/ACT AEROSOL SOLUTION 2 PUFFS NEEDED INHALATION EVERY 4 HRS TAKING ATORVASTATIN CALCIUM 10 MG TABLET 1 TAB(S) ORAL DAILY TAKING LANCETS _ MISCELLANEOUS DIRECTED TEST QD - BID TAKING VESICARE 10 MG TABLET 1 TABLET ORALLY ONCE A DAY TAKING OMEPRAZOLE 40MG 40 MG TABLET 1 TAB(S) ORALLY DAILY TAKING ONETOUCH ULTRA TEST - STRIP TEST ONCE DAILY TAKING CARVEDILOL 12.5MG TABLET 1 TAB(S) ORAL BID TAKING LISINOPRIL 40 40 MG TABLET 1 TAB(S) ORAL DAILY TAKING FUROSEMIDE 40 MG TABLET 1 TABLET ORALLY ONCE A DAY TAKING METFORMIN HCL 500 MG TABLET 1 TABLET WITH LUNCH ORALLY ONCE A DAY TAKING LANTUS SOLOSTAR 100 UNIT/ML SOLUTION PEN-INJECTOR 55 UNITS SUBCUTANEOUS IN THE EVENING TAKING METFORMIN HCL 1000MG TAB 1 TAB BID WITH MEALS NOT-TAKING ZOSTAVAX 87784 UNT/0.65ML SOLUTION RECONSTITUTED DIRECTED SUBCUTANEOUS DIRECTED NOT-TAKING ALBUTEROL SULFATE HFA 108 (90 BASE) MCG/ACT AEROSOL SOLUTION 2 PUFFS NEEDED INHALATION EVERY 4 HRS NOT-TAKING BENADRYL 25 MG TABLET 1-2 TABLETS NEEDED ORALLY EVERY NIGHT BEFORE BED NOT-TAKING CYCLOBENZAPRINE HCL 5 MG TABLET 1 TABLET ORALLY THREE TIMES A DAY NEEDED NOT-TAKING GABAPENTIN 300 MG CAPSULE 1 CAPSULE ORALLY TWICE DAILY MEDICATION LIST REVIEWED AND RECONCILED WITH THE PATIENT PAST MEDICAL HISTORY HYPERTENSION TYPE II DIABETES ARTHRITIS CHF 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 CONSTITUTIONAL: ANY CHANGE IN YOUR MEDICAL CONDITION? NO . CHILLS NO . FEVER NO . INFECTION: DO YOU HAVE NEW INFECTIONS? NO . DO YOU HAVE HISTORY OF MRSA? NO . MUSCULOSKELETAL: ANY NEW PATTERNS OF PAIN OR NUMBNESS? YES, LEFT LOWER ABDOMEN, AND A LITTLE IN THE LEFT LOWER BACK. . GASTROENTEROLOGY: ANY NEW CHANGE IN BOWEL CONTROL? NO . GENITOURINARY: ANY NEW CHANGE IN BLADDER CONTROL? NO . IS THERE A CHANCE YOU COULD BE ? NO . HEMATOLOGY/LYMPH: DO YOU TAKE ANY BLOOD THINNERS? (FOR EXAMPLE- COUMADIN, PLAVIX, AGGRENOX, PLATEL, PRADAXA, OR XARELTO) NO . WHEN WAS YOUR LAST DOSE? DATE: TIME: . NEUROLOGY: HAVE YOU FALLEN IN THE PAST 6 MONTHS? NO . ANY NEW EXTREMITY NUMBNESS OR WEAKNESS? NO . CARDIOLOGY: DO YOU HAVE A PACEMAKER OR DEFIBRILLATOR? NO . RESPIRATORY: HAVE YOU BEEN SICK IN THE PAST WEEK? NO . FEVER NO . FLU LIKE SYMPTOMS? NO . COUGH NO . INTEGUMENTARY: DO YOU HAVE ANY RASHES OR OPEN SORES? NO . ALLERGIC/IMMUNO: ARE YOU ALLERGIC TO SHELLFISH OR IV DYE? NO . ANY NEW ALLERGIES? NO . PSYCHIATRIC: DO YOU HAVE THOUGHTS OF HURTING YOURSELF OR SOMEONE ELSE? NO . ARE YOU ABUSED, NEGLECTED, OR IN AN UNSAFE ENVIRONMENT? NO . ENDOCRINOLOGY: ARE YOU DIABETIC? YES . OTHER: DO YOU NEED ANY PRESCRIPTIONS? NO . IF YES, PLEASE LIST: ____ . ANY NEW PROBLEMS WITH YOUR MEDICATIONS? NO . WHEN DID YOU LAST EAT? ____ . WHEN DID YOU LAST DRINK? ____ . WHAT DID YOU LAST DRINK? ____ . NAME OF PERSON DRIVING YOU HOME? ____ . DO YOU HAVE ANY OTHER QUESTIONS OR CONCERNS NO . VITAL SIGNS WT 200.8 LBS, HT 63 IN, BMI 35.57 INDEX, BP 191/81 MM HG, HR 75 /MIN, RR 18 /MIN, TEMP 97.1 F, OXYGEN SAT % 95%, NA INITIALS SC 08:54, REVIEWED BY: PIETRO. EXAMINATION GENERAL EXAMINATION: PSYCHALERT , ORIENTED X 3 , APPROPRIATE MOOD AND AFFECT . LUNGS:CLEAR TO AUSCULTATION BILATERALLY, NO WHEEZES, RALES OR RHONCHI. HEART:HEART RATE REGULAR, NO MURMURS, CLICK OR RUBS. ABDOMEN:SOFT, NON-TENDER, NO ORGANOMEGALY, BOWEL SOUNDS ARE NORMAL. NO TENDERNESS OVER RIGHT OR LEFT GROIN/ILIO-INGUINAL REGIONS. MUSCULOSKELETAL:TRIGGER POINTS AND TIGHT FIBROUS BANDS FROM LEFT LOW BACK AT L2-3 LEVEL WITH RADIATION TO LEFT FLANK AND ABDOMEN. MINIMAL TENDERNESS WITH PALPATION OVER LUMBAR SPINOUS PROCESSES. , MUSCLE STRENGTH TESTING 5/5 BILATERALUPPER AND LOWER EXTREMITIES. CAN FLEX TO 90 DEGREES,. EXTREMITIES:NO EDEMA. NEUROLOGIC EXAM:DTR'S 1+ BILATERAL UPPER AND LOWER EXTREMITIES. NO SENSORY DEFICIET TO LIGHT TOUCH OVER LOER EXTREMITIES. ASSESSMENTS MYALGIA - M79.1 (PRIMARY) TREATMENT MYALGIA TRIGGER POINT 3 + GERMANIA FRIED 01/05/2017 9:34:50 AM > ABDOMEN AND FLANK LEFT SIDE NOTES: CONTINUE EXERCISES AND STRETCHES,TRIGGER POINT INJECTION MATERIAL WAS PRINTED. PROCEDURE CODES FA211 ESTABILISHED PATIENT [facility] FACILITY CHARGE G8730 PAIN ASSESS POS TOOL F/U PLAN DOC G8427 DOC MEDS VERIFIED W/PT OR RE DISPOSITION & COMMUNICATION FOLLOW UP AFTER INJECTION (REASON: CHECK AUTH FOR TPI) ELECTRONICALLY SIGNED BY ASA WORLEY ON 01/25/2017 AT 12:34 PM EDT DISCLAIMER : THIS IS A VISIT SUMMARY EXTRACTED FROM THE [employer] CHART. IT IS NOT A COPY OF THE [employer] PROGRESS NOTE. MTDD
== END ==
LOC: M PAIN 08:40
PROVIDERS: ATTEND Nurse Practitioner Family
DX: G89.29 Other chronic pain (principal); M54.5 Low back pain; M79.1 Myalgia; I11.0 Hypertensive heart disease with heart failure; E11.8 Type 2 diabetes mellitus with unspecified complications; M19.90 Unspecified osteoarthritis, unspecified site; K21.9 Gastro-esophageal reflux disease without esophagitis; E78.5 Hyperlipidemia, unspecified; I35.9 Nonrheumatic aortic valve disorder, unspecified; I27.2 Other secondary pulmonary hypertension; J45.909 Unspecified asthma, uncomplicated; G47.9 Sleep disorder, unspecified; K74.60 Unspecified cirrhosis of liver; Z88.0 Allergy status to penicillin; Z88.3 Allergy status to other anti-infective agents; Z79.82 Long term (current) use of aspirin; Z79.4 Long term (current) use of insulin; Z79.899 Other long term (current) drug therapy

== ENCOUNTER → 2017-01-27 | Outpatient (CLI) | payer MEDICARE ==
[~2017-01-27] MED LIST changes: +BUPIVACAINE HCL 0.25% 10 ML VIAL As Ordered ONE; +BUPIVACAINE HCL 0.25% 30 ML VIAL As Ordered ONE; +TRIAMCINOLONE ACETONIDE SUSP 40 MG/ML VIAL (J3301) As Ordered ONE
--- NOTE | 2017-02-10 00:48 | ECWPNPC ---
PATIENT NAME: GERARDO ELLSWORTH : 1935 GENDER: FEMALE VISIT DATE: 01/27/2017 DISCHARGE DATE: 01/27/17 1018 VISIT LOCKED DATE TIME: PHYSICIAN: FRANCISCO LANG RESOURCE: FRANCISCO LANG REASON FOR APPOINTMENT 1. ABDOMINAL FLANK, L SIDE HISTORY OF PRESENT ILLNESS HISTORY OF PRESENT ILLNESS: PAIN THE PATIENT DESCRIBES THE PAIN... FALL RISK SCREENING: SCREENING :NO FALLS IN THE PAST YEAR CURRENT MEDICATIONS TAKING ASPIR-81 81 MG TABLET DELAYED RELEASE 1 TABLET ORALLY ONCE A DAY, NOTES: 01/26 1400 TAKING TYLENOL EXTRA STRENGTH 500 MG TABLET 2 TABS ORALLY BID PRN, NOTES: 01/26 2130 TAKING ONE TOUCH ULTRA TEST STRIPS - STRIPS 1 SQ ONCE A DAY TAKING PROBIOTIC 1 1 TAB(S) ORALLY DAILY, NOTES: 01/27 800 TAKING ALCOHOL PREP PADS 70 % MISCELLANEOUS DIRECTED EXTERNALLY BID TAKING PROAIR HFA 108 (90 BASE) MCG/ACT AEROSOL SOLUTION 2 PUFFS NEEDED INHALATION EVERY 4 HRS, NOTES: 01/25 TAKING ATORVASTATIN CALCIUM 10 MG TABLET 1 TAB(S) ORAL DAILY, NOTES: 01/26 2130 TAKING LANCETS _ MISCELLANEOUS DIRECTED TEST QD - BID TAKING VESICARE 10 MG TABLET 1 TABLET ORALLY ONCE A DAY, NOTES: 01/27 800 TAKING OMEPRAZOLE 40MG 40 MG TABLET 1 TAB(S) ORALLY DAILY, NOTES: 01/27 800 TAKING ONETOUCH ULTRA TEST - STRIP TEST ONCE DAILY TAKING CARVEDILOL 12.5MG TABLET 1 TAB(S) ORAL BID, NOTES: 01/26 2130 TAKING LISINOPRIL 40 40 MG TABLET 1 TAB(S) ORAL DAILY, NOTES: 01/27 800 TAKING FUROSEMIDE 40 MG TABLET 1 TABLET ORALLY ONCE A DAY, NOTES: 01/27 800 TAKING METFORMIN HCL 1000 MG TABLET 1 TAB ORALLY BID, NOTES: 01/26 2130 TAKING LANTUS SOLOSTAR 100 UNIT/ML SOLUTION PEN-INJECTOR 55 UNITS SUBCUTANEOUS IN THE EVENING, NOTES: 01/26 2200 TAKING METFORMIN HCL 500 MG TABLET 1 TAB ORALLY AT LUNCH TIME, NOTES: 01/26 1400 NOT-TAKING ZOSTAVAX 70783 UNT/0.65ML SOLUTION RECONSTITUTED DIRECTED SUBCUTANEOUS DIRECTED NOT-TAKING ALBUTEROL SULFATE HFA 108 (90 BASE) MCG/ACT AEROSOL SOLUTION 2 PUFFS NEEDED INHALATION EVERY 4 HRS NOT-TAKING BENADRYL 25 MG TABLET 1-2 TABLETS NEEDED ORALLY EVERY NIGHT BEFORE BED NOT-TAKING CYCLOBENZAPRINE HCL 5 MG TABLET 1 TABLET ORALLY THREE TIMES A DAY NEEDED NOT-TAKING GABAPENTIN 300 MG CAPSULE 1 CAPSULE ORALLY TWICE DAILY MEDICATION LIST REVIEWED AND RECONCILED WITH THE PATIENT PAST MEDICAL HISTORY HYPERTENSION TYPE II DIABETES ARTHRITIS CHF 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 CONSTITUTIONAL: ANY CHANGE IN YOUR MEDICAL CONDITION? NO . CHILLS NO . FEVER NO . INFECTION: DO YOU HAVE NEW INFECTIONS? NO . DO YOU HAVE HISTORY OF MRSA? NO . MUSCULOSKELETAL: ANY NEW PATTERNS OF PAIN OR NUMBNESS? NO . GASTROENTEROLOGY: ANY NEW CHANGE IN BOWEL CONTROL? NO . GENITOURINARY: ANY NEW CHANGE IN BLADDER CONTROL? NO . IS THERE A CHANCE YOU COULD BE ? NO . HEMATOLOGY/LYMPH: DO YOU TAKE ANY BLOOD THINNERS? (FOR EXAMPLE- COUMADIN, PLAVIX, AGGRENOX, PLATEL, PRADAXA, OR XARELTO) NO . WHEN WAS YOUR LAST DOSE? DATE: TIME: . NEUROLOGY: HAVE YOU FALLEN IN THE PAST 6 MONTHS? NO . ANY NEW EXTREMITY NUMBNESS OR WEAKNESS? NO . CARDIOLOGY: DO YOU HAVE A PACEMAKER OR DEFIBRILLATOR? NO . RESPIRATORY: HAVE YOU BEEN SICK IN THE PAST WEEK? NO . FEVER NO . FLU LIKE SYMPTOMS? NO . COUGH NO . INTEGUMENTARY: DO YOU HAVE ANY RASHES OR OPEN SORES? NO . ALLERGIC/IMMUNO: ARE YOU ALLERGIC TO SHELLFISH OR IV DYE? NO . ANY NEW ALLERGIES? NO . PSYCHIATRIC: DO YOU HAVE THOUGHTS OF HURTING YOURSELF OR SOMEONE ELSE? NO . ARE YOU ABUSED, NEGLECTED, OR IN AN UNSAFE ENVIRONMENT? NO . ENDOCRINOLOGY: ARE YOU DIABETIC? YES, FSBS 145 THIS A.M. . OTHER: DO YOU NEED ANY PRESCRIPTIONS? NO . IF YES, PLEASE LIST: ____ . ANY NEW PROBLEMS WITH YOUR MEDICATIONS? NO . WHEN DID YOU LAST EAT? 01/26 1900 . WHEN DID YOU LAST DRINK? 01/26 1900 . WHAT DID YOU LAST DRINK? MILK . NAME OF PERSON DRIVING YOU HOME? GRANDSON--BRYAN . DO YOU HAVE ANY OTHER QUESTIONS OR CONCERNS NO . VITAL SIGNS WT 207.4 LBS, HT 63 IN, BMI 36.74 INDEX, BP 196/80 MANUAL, HR 61 /MIN, RR 16 /MIN, TEMP 97.9 F, OXYGEN SAT % 97%, NA INITIALS SC 08:55, REVIEWED BY: CLARISSA. ASSESSMENTS MYALGIA - M79.1 (PRIMARY) PROCEDURES PN TRIGGER POINT INJECTION WITH STEROIDS PRE PROCEDURE DIAGNOSIS 1. MYALGIA 2. PAIN AT LEFT ABDOMINAL WALL AREA POST PROCEDURE DIAGNOSIS 1. MYALGIA 2. PAIN AT LEFT ABDOMINAL WALL AREA PROCEDURE TRIGGER POINT INJECTION AT LEFT ABDOMINAL WALL AREA SURGEON DR. FRANCISCO LANG PARTS CLEANER NONE ANESTHESIA LOCAL PRE PROCEDURE NOTE THE PATIENT HAS A HISTORY OF CHRONIC PAIN AT THE LEFT ABDOMINAL WALL AREA. I EVALUATE THE PATIENT AND REVIEWED THE CHART. THERE IS EVIDENCE OF BANDS OF TISSUE WITH RESTRICTION OF MOVEMENT AND PRESENCE OF TRIGGER POINT AT THE AFFECTED AREA. I WENT OVER THE RISKS, ALTERNATIVES, AND BENEFITS ASSOCIATED WITH THIS PROCEDURE. THE PATIENT WOULD LIKE TO PROCEED AND GIVE CONSENT TO PERFORMED THE PROCEDURE. THE PATIENT DENIES UNEXPLAINABLE WEIGHT LOSS, FEVER, CHILLS, OR NEW CHANGES IN URINARY OR BOWEL CONTROL DESCRIPTION OF PROCEDURE THE PATIENT WAS BROUGHT TO THE PROCEDURE ROOM AND PLACED IN THE SITTING POSITION. THE AREA WAS CLEANED WITH ALCOHOL. THE PROCEDURE WAS DONE USING ASEPTIC STERILE TECHNIQUE. I CHECKED LATERALITY AND THE LEVEL WHERE THE PROCEDURE WAS GOING TO BE PERFORMED WITH THE PATIENT AND THE SUPPORTING STAFF AT THE MOMENT OF THE TIME OUT IN THE PROCEDURE ROOM. USING A 25-GAUGE NEEDLE, TRIGGER POINTS WERE INJECTED AT THE LEFT ABDOMINAL WALL AREA WITH A TOTAL OF 40 ML OF BUPIVACAINE 0.25% AND KENALOG 40 MG. THERE WAS NO EVIDENCE OF BLOOD, PARESTHESIA OR CEREBROSPINAL FLUID DURING THE PROCEDURE. THE PATIENT WAS SENT TO THE RECOVERY ROOM. THE PATIENT WAS MOVING THE EXTREMITIES AND DOING WELL. THERE WAS NO COMPLICATION DURING THE PROCEDURE POST PROCEDURE NOTE THE PATIENT WILL BE SEEN IN A FOLLOW UP IN THE NEXT FEW WEEKS. INSTRUCTIONS WERE GIVEN, QUESTIONS WERE ANSWERED, AND THE PATIENT EXPRESSED UNDERSTANDING AND AGREES WITH THE PLAN. I, JONI KEARNS, DOCUMENTED THE ABOVE INFORMATION ACTING A SCRIBE FOR DR. LANG. I HAVE REVIEWED THE ABOVE DOCUMENT, WRITTEN BY JONI BENITEZ AND I VERIFY THAT IT IS ACCURATE PROCEDURE CODES 20806 INJ TRIGGER POINT 06/23 MUSC DISPOSITION & COMMUNICATION FOLLOW UP 3 WEEKS ELECTRONICALLY SIGNED BY FRANCISCO LANG MD ON 02/09/2017 AT 12:32 PM EDT DISCLAIMER : THIS IS A VISIT SUMMARY EXTRACTED FROM THE [employer] CHART. IT IS NOT A COPY OF THE [employer] PROGRESS NOTE. COLLIND
== END ==
LOC: M PAIN 08:30
PROVIDERS: ATTEND Anesthesiology
DX: G89.29 Other chronic pain (principal); R10.32 Left lower quadrant pain; M79.1 Myalgia; I11.9 Hypertensive heart disease without heart failure; I50.9 Heart failure, unspecified; I35.9 Nonrheumatic aortic valve disorder, unspecified; I27.2 Other secondary pulmonary hypertension; E11.9 Type 2 diabetes mellitus without complications; K21.9 Gastro-esophageal reflux disease without esophagitis; E78.5 Hyperlipidemia, unspecified; J45.909 Unspecified asthma, uncomplicated; Z88.0 Allergy status to penicillin; Z88.1 Allergy status to other antibiotic agents; Z79.82 Long term (current) use of aspirin; Z79.4 Long term (current) use of insulin; Z79.899 Other long term (current) drug therapy
CPT/HCPCS: 20552; J3301

== ENCOUNTER → 2017-02-17 | Outpatient (REF) | payer MEDICARE ==
[~2017-02-17] MED LIST changes: -BUPIVACAINE HCL 0.25% 10 ML VIAL As Ordered ONE; -BUPIVACAINE HCL 0.25% 30 ML VIAL As Ordered ONE; -TRIAMCINOLONE ACETONIDE SUSP 40 MG/ML VIAL (J3301) As Ordered ONE
[2017-02-17 17:33] LABS: ALBUMIN 3.6 GM/DL (3.2-5.2); BILIRUBIN,TOTAL 0.5 MG/DL (0.2-1.0); CALCIUM LEVEL 8.9 MG/DL (8.8-10.2); CREATININE FOR GFR 1.14 MG/DL (0.55-1.02); FREE T4 1.05 NG/DL (0.76-1.46); GLOMERULAR FILTRATION RATE 48.8 (>32); MAGNESIUM LEVEL 1.8 MG/DL (1.8-2.4); POTASSIUM SERUM 4.5 MEQ/L (3.5-5.1); TOTAL PROTEIN 7.2 GM/DL (6.4-8.2)
[2017-02-17 18:13] LABS: BASO % 0.4 % (0.0-1.0); EOS # 0.1 K/mm3 (0.0-0.50); LARGE UNSTAINED CELL # 0.1 K/mm3 (0.0-0.4); LARGE UNSTAINED CELL % 1.2 % (0.0-4.0); LYMPH # 1.5 K/mm3 (1.5-4.5); LYMPH % 23.3 % (24.0-44.0); MEAN CORPUSCULAR HGB CONC 32.9 g/dl (32.0-36.5); MEAN CORPUSCULAR VOLUME 94.1 fl (80.0-96.0); MONO # 0.4 K/mm3 (0.0-0.8); MONO % 6.3 % (0.0-5.0); NEUTROPHILS # 4.2 K/mm3 (1.8-7.7); NEUTROPHILS % 66.8 % (36.0-66.0); PLATELET COUNT, AUTOMATED 173 k/mm3 (150-450); RED CELL DISTRIBUTION WIDTH 12.2 % (11.5-14.5); WHITE BLOOD COUNT 6.2 K/mm3 (4.0-10.0)
== END ==
LOC: M SFHCCAPE 08:57
PROVIDERS: ATTEND Physician Assistant
DX: E11.8 Type 2 diabetes mellitus with unspecified complications (principal); R25.2 Cramp and spasm

== ENCOUNTER → 2017-02-24 | Outpatient (CLI) | payer MEDICARE ==
--- NOTE | 2017-03-15 23:40 | ECWPNPC ---
PATIENT NAME: GERARDO ELLSWORTH : 1935 GENDER: FEMALE VISIT DATE: 02/24/2017 DISCHARGE DATE: 02/24/17 1128 VISIT LOCKED DATE TIME: PHYSICIAN: GERMANIA DENIS RESOURCE: GERMANIA DENIS REASON FOR APPOINTMENT 1. POST TPI HISTORY OF PRESENT ILLNESS HISTORY OF PRESENT ILLNESS: PAIN THE PATIENT DESCRIBES THE PAIN... FALL RISK SCREENING: SCREENING :NO FALLS IN THE PAST YEAR TODAY'S VISIT: NOTES: S/P ABD WALL WITH TRIGGER POINTS COMPLETED ON 01/27/17. PAIN LEVEL PRIOR WAS 5/10. POST PROCEDURE PAIN DECREASED TO 0-1/10 X 4 WEEKS. HAS BEEN ABLE TO RETURN TO USUAL ACTIVITIES WITHOUT FLARE OF THE PAIN. IS VERY PLEASEDWITH HER PROGRESS AND LEVEL OF PAIN CONTROL.. CURRENT MEDICATIONS TAKING ASPIR-81 81 MG TABLET DELAYED RELEASE 1 TABLET ORALLY ONCE A DAY TAKING TYLENOL EXTRA STRENGTH 500 MG TABLET 2 TABS ORALLY BID PRN TAKING ONE TOUCH ULTRA TEST STRIPS - STRIPS 1 SQ ONCE A DAY TAKING PROBIOTIC 1 1 TAB(S) ORALLY DAILY TAKING ALCOHOL PREP PADS 70 % MISCELLANEOUS DIRECTED EXTERNALLY BID TAKING PROAIR HFA 108 (90 BASE) MCG/ACT AEROSOL SOLUTION 2 PUFFS NEEDED INHALATION EVERY 4 HRS TAKING LANCETS _ MISCELLANEOUS DIRECTED TEST QD - BID TAKING VESICARE 10 MG TABLET 1 TABLET ORALLY ONCE A DAY TAKING ONETOUCH ULTRA TEST - STRIP TEST ONCE DAILY TAKING METFORMIN HCL 1000 MG TABLET 1 TAB ORALLY BID TAKING LANTUS SOLOSTAR 100 UNIT/ML SOLUTION PEN-INJECTOR 55 UNITS SUBCUTANEOUS IN THE EVENING TAKING METFORMIN HCL 500 MG TABLET 1 TAB ORALLY AT LUNCH TIME TAKING ATORVASTATIN CALCIUM 10 MG TABLET 1 TAB(S) ORAL DAILY TAKING CARVEDILOL 12.5MG TABLET 1 TAB(S) ORAL BID TAKING OMEPRAZOLE 40MG 40 MG TABLET 1 TAB(S) ORALLY DAILY TAKING FUROSEMIDE 40 MG TABLET 1 TABLET ORALLY ONCE A DAY TAKING LISINOPRIL 40 MG TABLET 1 TABLET ORALLY ONCE A DAY NOT-TAKING LISINOPRIL 40 40 MG TABLET 1 TAB(S) ORAL DAILY NOT-TAKING ZOSTAVAX 34905 UNT/0.65ML SOLUTION RECONSTITUTED DIRECTED SUBCUTANEOUS DIRECTED NOT-TAKING ALBUTEROL SULFATE HFA 108 (90 BASE) MCG/ACT AEROSOL SOLUTION 2 PUFFS NEEDED INHALATION EVERY 4 HRS NOT-TAKING BENADRYL 25 MG TABLET 1-2 TABLETS NEEDED ORALLY EVERY NIGHT BEFORE BED NOT-TAKING CYCLOBENZAPRINE HCL 5 MG TABLET 1 TABLET ORALLY THREE TIMES A DAY NEEDED NOT-TAKING GABAPENTIN 300 MG CAPSULE 1 CAPSULE ORALLY TWICE DAILY MEDICATION LIST REVIEWED AND RECONCILED WITH THE PATIENT PAST MEDICAL HISTORY HYPERTENSION TYPE II DIABETES ARTHRITIS CHF 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 LANG ALLERGIES PENICILLIN (FOR ALLERGIES USE ONLY): RASH: ALLERGY BACTRIM DS: JOINT PAIN: ALLERGY REVIEW OF SYSTEMS REVIEWED BY: PROVIDER: GERMANIA JIN . CONSTITUTIONAL: ANY CHANGE IN YOUR MEDICAL CONDITION? NO . CHILLS NO . FEVER NO . INFECTION: DO YOU HAVE NEW INFECTIONS? NO . DO YOU HAVE HISTORY OF MRSA? NO . MUSCULOSKELETAL: ANY NEW PATTERNS OF PAIN OR NUMBNESS? NO . GASTROENTEROLOGY: ANY NEW CHANGE IN BOWEL CONTROL? NO . GENITOURINARY: ANY NEW CHANGE IN BLADDER CONTROL? NO . IS THERE A CHANCE YOU COULD BE ? NO . HEMATOLOGY/LYMPH: DO YOU TAKE ANY BLOOD THINNERS? (FOR EXAMPLE- COUMADIN, PLAVIX, AGGRENOX, PLATEL, PRADAXA, OR XARELTO) NO . WHEN WAS YOUR LAST DOSE? DATE: TIME: . NEUROLOGY: HAVE YOU FALLEN IN THE PAST 6 MONTHS? NO . ANY NEW EXTREMITY NUMBNESS OR WEAKNESS? NO . CARDIOLOGY: DO YOU HAVE A PACEMAKER OR DEFIBRILLATOR? NO . RESPIRATORY: HAVE YOU BEEN SICK IN THE PAST WEEK? NO . FEVER NO . FLU LIKE SYMPTOMS? NO . COUGH NO . INTEGUMENTARY: DO YOU HAVE ANY RASHES OR OPEN SORES? NO . ALLERGIC/IMMUNO: ARE YOU ALLERGIC TO SHELLFISH OR IV DYE? NO . ANY NEW ALLERGIES? NO . PSYCHIATRIC: DO YOU HAVE THOUGHTS OF HURTING YOURSELF OR SOMEONE ELSE? NO . ARE YOU ABUSED, NEGLECTED, OR IN AN UNSAFE ENVIRONMENT? NO . ENDOCRINOLOGY: ARE YOU DIABETIC? YES . OTHER: DO YOU NEED ANY PRESCRIPTIONS? NO . IF YES, PLEASE LIST: ____ . ANY NEW PROBLEMS WITH YOUR MEDICATIONS? NO . WHEN DID YOU LAST EAT? ____ . WHEN DID YOU LAST DRINK? ____ . WHAT DID YOU LAST DRINK? ____ . NAME OF PERSON DRIVING YOU HOME? ____ . DO YOU HAVE ANY OTHER QUESTIONS OR CONCERNS NO . VITAL SIGNS WT 206.6 LBS, HT 63 IN, BMI 36.59 INDEX, BP 175/76 MM HG, HR 72 /MIN, RR 16 /MIN, TEMP 97.2 F, OXYGEN SAT % 95%, NA INITIALS SC 10:40. EXAMINATION GENERAL EXAMINATION: PSYCHALERT , ORIENTED X 3 , APPROPRIATE MOOD AND AFFECT . LUNGS:CLEAR TO AUSCULTATION BILATERALLY. HEART:HEART RATE REGULAR. ABDOMEN:SOFT, NON-TENDER, NO ORGANOMEGALY, BOWEL SOUNDS ARE NORMAL. NO TENDERNESS OVER RIGHT OR LEFT GROIN/ILIO-INGUINAL REGIONS. MUSCULOSKELETAL: FEW TRIGGER POINTS AND TIGHT FIBROUS BANDS FROM LEFT LOW BACK AT L2-3 LEVEL.. MINIMAL TENDERNESS WITH PALPATION OVER LUMBAR SPINOUS PROCESSES. , MUSCLE STRENGTH TESTING 5/5 BILATERALUPPER AND LOWER EXTREMITIES. CAN FLEX TO 90 DEGREES,. EXTREMITIES:NO EDEMA. ASSESSMENTS MYALGIA - M79.1 (PRIMARY) MYOFASCIAL PAIN ON LEFT SIDE - M79.1 (PRIMARY) TREATMENT MYALGIA NOTES: GENTLY MASSAGE LEFT ABDOMINAL WALL. OK TO CALL AND SCHEDULE TRIGGER POINTS IF NEEDED. PROCEDURE CODES FA211 ESTABILISHED PATIENT [facility] FAC[facility] CHARGE G8730 PAIN ASSESS POS TOOL F/U PLAN DOC G8427 DOC MEDS VERIFIED W/PT OR RE DISPOSITION & COMMUNICATION FOLLOW UP 3 MONTHS ELECTRONICALLY SIGNED BY ASA WORLEY ON 03/15/2017 AT 07:59 AM EDT DISCLAIMER : THIS IS A VISIT SUMMARY EXTRACTED FROM THE [employer] CHART. IT IS NOT A COPY OF THE [employer] PROGRESS NOTE. DAVID
== END ==
LOC: M PAIN 10:45
PROVIDERS: ATTEND Nurse Practitioner Family
DX: G89.29 Other chronic pain (principal); R10.9 Unspecified abdominal pain; M79.1 Myalgia; E11.8 Type 2 diabetes mellitus with unspecified complications; E78.5 Hyperlipidemia, unspecified; I11.0 Hypertensive heart disease with heart failure; I50.9 Heart failure, unspecified; G47.9 Sleep disorder, unspecified; K74.60 Unspecified cirrhosis of liver; E04.1 Nontoxic single thyroid nodule; Z88.0 Allergy status to penicillin; Z88.1 Allergy status to other antibiotic agents; Z79.82 Long term (current) use of aspirin; Z79.84 Long term (current) use of oral hypoglycemic drugs; Z79.899 Other long term (current) drug therapy

== ENCOUNTER → 2017-04-16 | Outpatient (CLI) | payer MEDICARE ==
--- NOTE | 2017-04-16 12:04 | REP ---
Bilateral screening digital mammogram: There are no palpable abnormalities or other breast complaints. The patient states she/he had a clinical breast exam in January 2017. Comparison is 02/20/2011. The breast parenchyma is predominantly adipose, unchanged. There are benign calcifications. There has been no interval development of masses, areas of structural distortion or clusters of microcalcifications typical of malignancy. Impression: There is no evidence of malignancy. BI-RADS/ACR category 1, negative mammogram. The patient should have a repeat mammogram in 1 year. This mammogram was interpreted with the aid of an FDA-approved computer-aided detection system. A. Negative x-ray reports should not delay biopsy if a dominant or clinically suspicious mass is present. B. Not all breast cancers are not identified by x-ray. C. Adenosis and dense breasts may obscure an underlying neoplasm. The patient letter being requested is M1.
--- NOTE | 2017-04-20 09:21 | DEXA ---
AP SPINE L1 - L4 1.321 1.0 2.9 LT FEMUR TOTAL 0.847 -1.3 0.8 RT FEMUR TOTAL 0.848 -1.3 0.8 TOTAL BODY TOTAL OTHER DUAL FEMUR FRAX* ASSESSMENT Risk factors: 10 year probability of fracture Major osteoporotic fracture % Hip fracture % COMMENTS: Normal bone densitometry of the spine. There is low bone density of the hips. The increased density of the spine does represent a significant change. The decreased density of the left hip does represent a significant change. The decreased density of the right hip does represent a significant change. The density of the spine has increased 2.7% since the initial exam on 2002. The spine density has increased 3.9% since the most recent exam on 03/02/2009. The density of the left hip has decreased 13.3% since the initial exam on 2002. The density of the left hip has decreased 6.2% since the most recent exam on 04/2009. The density of the right hip has decreased 9.8% since the initial exam on 2002. The density of the right hip has decreased 4.3% since the most recent exam on . FOLLOW-UP: Recommendation for the next bone density exam: 2 years. DAVID
== END ==
LOC: M WHC 10:17
PROVIDERS: ATTEND Physician Assistant
DX: Z12.31 Encounter for screening mammogram for malignant neoplasm of breast (principal); Z78.0 Asymptomatic menopausal state
CPT/HCPCS: 77080; G0202

== ENCOUNTER → 2017-05-19 | Outpatient (REF) | payer MEDICARE ==
[2017-05-19 18:02] LABS: ALBUMIN 3.7 GM/DL (3.2-5.2); BILIRUBIN,TOTAL 0.4 MG/DL (0.2-1.0); CALCIUM LEVEL 9.3 MG/DL (8.8-10.2); CREATININE FOR GFR 1.12 MG/DL (0.55-1.02); GLOMERULAR FILTRATION RATE 49.8 (>32); POTASSIUM SERUM 4.2 MEQ/L (3.5-5.1); TOTAL PROTEIN 7.4 GM/DL (6.4-8.2)
[2017-05-19 18:52] LABS: BASO # 0.1 10^3/uL (0.0-0.2); EOS # 0.1 10^3/uL (0.0-0.50); EOS % 1.9 % (0.0-3.0); IMMATURE GRANULOCYTE % 0.3 % (0-0); LYMPH # 2.2 10^3/uL (1.5-4.5); LYMPH % 31.5 % (24.0-44.0); MEAN CORPUSCULAR HEMOGLOBIN 29.8 pg (27.0-33.0); MEAN CORPUSCULAR VOLUME 93.2 fl (80.0-96.0); MONO # 0.8 10^3/uL (0.0-0.8); MONO % 11.6 % (0.0-5.0); NEUTROPHILS # 3.7 10^3/uL (1.8-7.7); NEUTROPHILS % 53.7 % (36.0-66.0); PLATELET COUNT, AUTOMATED 172 10^3/uL (150-450); RED CELL DISTRIBUTION WIDTH 12.7 % (11.5-14.5); WHITE BLOOD COUNT 6.8 10^3/uL (4.0-10.0)
== END ==
LOC: M SFHCCAPE 08:55
PROVIDERS: ATTEND Physician Assistant
DX: E11.8 Type 2 diabetes mellitus with unspecified complications (principal)

== ENCOUNTER → 2017-05-22 | Outpatient (CLI) | payer MEDICARE | LOC: M PAIN 14:00 | PROVIDERS: ATTEND Nurse Practitioner Family | DX: M79.1 Myalgia (principal); Z79.4 Long term (current) use of insulin; I11.0 Hypertensive heart disease with heart failure; E11.9 Type 2 diabetes mellitus without complications; E87.5 Hyperkalemia; K21.9 Gastro-esophageal reflux disease without esophagitis; I50.9 Heart failure, unspecified; Z79.82 Long term (current) use of aspirin; Z79.899 Other long term (current) drug therapy; Z88.0 Allergy status to penicillin; Z88.1 Allergy status to other antibiotic agents; Z87.891 Personal history of nicotine dependence ==

== ENCOUNTER → 2017-06-09 | Outpatient (CLI) | payer MEDICARE ==
--- NOTE | 2017-06-09 11:41 | REP ---
RIGHT UPPER QUADRANT SONOGRAPHY: HISTORY: Cirrhosis of the liver. COMPARISON: Sonography 05/28/2016. TODAY'S SONOGRAPHIC FINDINGS: Scanning through the right upper quadrant of the abdomen demonstrates normal sized, thin-walled gallbladder without evidence of stone or polyp. Common bile duct is normal measuring 0.4 cm in greatest diameter. Liver is again showing a coarse somewhat hyperechoic texture throughout, consistent with cirrhosis. No focal liver lesion is appreciated. There is no visible ascites. Pancreas is largely obscured by abdominal gas. No right renal abnormality is seen. Right kidney measures 13.4 x 5.3 x 4.3 cm. IMPRESSION: Coarse liver texture consistent with cirrhosis again seen. No focal liver lesion or ascites seen. Otherwise negative. Signed by Ga Oh MD 06/09/2017 02:24 P
== END ==
LOC: M RAD 09:05
PROVIDERS: ATTEND Internal Medicine Gastroenterology
DX: K74.60 Unspecified cirrhosis of liver (principal)

== ENCOUNTER → 2017-08-13 | Outpatient (REF) | payer MEDICARE | LOC: M SFHCLERA 09:08 | DX: C44.329 Squamous cell carcinoma of skin of other parts of face (principal); L82.1 Other seborrheic keratosis; C44.321 Squamous cell carcinoma of skin of nose; C44.519 Basal cell carcinoma of skin of other part of trunk | CPT/HCPCS: 88305 ==

== ENCOUNTER → 2017-08-18 | Outpatient (REF) | payer MEDICARE ==
[2017-08-18 17:21] LABS: ALBUMIN 3.7 GM/DL (3.2-5.2); ALBUMIN/GLOBULIN RATIO 1.03 (1.00-1.93); ALKALINE PHOSPHATASE 112 U/L (45-117); ALT/SGPT 22 U/L (12-78); ANION GAP 9 MEQ/L (8-16); AST/SGOT 27 U/L (7-37); BILIRUBIN,TOTAL 0.5 MG/DL (0.2-1.0); BLOOD UREA NITROGEN 28 MG/DL (7-18); CALCIUM LEVEL 9.2 MG/DL (8.8-10.2); CARBON DIOXIDE LEVEL 28 MEQ/L (21-32); CHLORIDE LEVEL 106 MEQ/L (98-107); CREATININE FOR GFR 1.12 MG/DL (0.55-1.30); GLOMERULAR FILTRATION RATE 49.8 (>32); GLUCOSE, FASTING 93 MG/DL (70-100); POTASSIUM SERUM 4.2 MEQ/L (3.5-5.1); SODIUM LEVEL 143 MEQ/L (136-145); TOTAL PROTEIN 7.3 GM/DL (6.4-8.2)
[2017-08-18 19:07] LABS: BASO # 0.1 10^3/uL (0.0-0.2); EOS # 0.2 10^3/uL (0.0-0.50); EOS % 2.4 % (0.0-3.0); HEMATOCRIT 33.9 % (36.0-47.0); HEMOGLOBIN 10.7 g/dl (12.0-16.0); IMMATURE GRANULOCYTE % 0.3 % (0-3.0); LYMPH # 2.2 10^3/uL (1.5-4.5); MEAN CORPUSCULAR HEMOGLOBIN 28.6 pg (27.0-33.0); MEAN CORPUSCULAR HGB CONC 31.6 g/dl (32.0-36.5); MEAN CORPUSCULAR VOLUME 90.6 fl (80.0-96.0); MONO # 0.8 10^3/uL (0.0-0.8); MONO % 10.8 % (0.0-5.0); NEUTROPHILS % 55.5 % (36.0-66.0); PLATELET COUNT, AUTOMATED 181 10^3/uL (150-450); RED BLOOD COUNT 3.74 10^6/uL (4.00-5.40); WHITE BLOOD COUNT 7.2 10^3/uL (4.0-10.0)
[2017-08-18 21:22] LABS: ESTIMATED AVERAGE GLUCOSE 163 MG/DL (60-110); HEMOGLOBIN A1c 7.3 %
== END ==
LOC: M SFHCCAPE 07:30
DX: E11.8 Type 2 diabetes mellitus with unspecified complications (principal)
CPT/HCPCS: 80053

== ENCOUNTER → 2017-10-08 | Outpatient (REF) | payer MEDICARE ==
[2017-10-08 16:34] LABS: BASO # 0.1 10^3/uL (0.0-0.2); EOS # 0.2 10^3/uL (0.0-0.50); EOS % 2.9 % (0.0-3.0); HEMATOCRIT 32.5 % (36.0-47.0); HEMOGLOBIN 10.3 g/dl (12.0-15.5); IMMATURE GRANULOCYTE % 0.1 % (0-3.0); LYMPH # 2.2 10^3/uL (1.5-4.5); LYMPH % 30.4 % (24.0-44.0); MEAN CORPUSCULAR HEMOGLOBIN 27.9 pg (27.0-33.0); MEAN CORPUSCULAR HGB CONC 31.7 g/dl (32.0-36.5); MEAN CORPUSCULAR VOLUME 88.1 fl (80.0-96.0); MONO # 0.8 10^3/uL (0.0-0.8); MONO % 10.2 % (0.0-5.0); NEUTROPHILS # 4.1 10^3/uL (1.8-7.7); NEUTROPHILS % 55.4 % (36.0-66.0); PLATELET COUNT, AUTOMATED 195 10^3/uL (150-450); RED BLOOD COUNT 3.69 10^6/uL (4.00-5.40); RED CELL DISTRIBUTION WIDTH 13.4 % (11.5-14.5); WHITE BLOOD COUNT 7.3 10^3/uL (4.0-10.0)
[2017-10-08 17:38] LABS: FERRITIN 13 NG/ML (8-252); IRON (FE) 39 UG/DL (50-170); PERCENT SATURATION 9.3 % (13.2-45.0); TOTAL IRON BINDING CAPACITY 420 UG/DL (250-450)
== END ==
LOC: M SFHCCAPE 07:10
DX: D64.9 Anemia, unspecified (principal)
CPT/HCPCS: 83550

== ENCOUNTER → 2017-11-10 | Outpatient (REF) | payer MEDICARE | LOC: M SFHCLERA 09:05 | DX: C44.519 Basal cell carcinoma of skin of other part of trunk (principal) | CPT/HCPCS: 88305 ==

== ENCOUNTER → 2017-12-01 | Outpatient (REF) | payer MEDICARE ==
[2017-12-01 16:50] LABS: ALBUMIN 3.6 GM/DL (3.2-5.2); ALKALINE PHOSPHATASE 107 U/L (45-117); ALT/SGPT 25 U/L (12-78); ANION GAP 7 MEQ/L (8-16); AST/SGOT 30 U/L (7-37); BILIRUBIN,TOTAL 0.4 MG/DL (0.2-1.0); BLOOD UREA NITROGEN 19 MG/DL (7-18); CARBON DIOXIDE LEVEL 31 MEQ/L (21-32); CHLORIDE LEVEL 105 MEQ/L (98-107); CHOLESTEROL LEVEL 127 MG/DL (<200); CHOLESTEROL RISK RATIO 2.189 (<5); CREATININE FOR GFR 1.13 MG/DL (0.55-1.30); GLOMERULAR FILTRATION RATE 49.2 (>32); GLUCOSE, FASTING 98 MG/DL (70-100); HDL CHOLESTEROL 58 MG/DL (>40); NON-HDL-C 69 MG/DL; POTASSIUM SERUM 4.1 MEQ/L (3.5-5.1); SODIUM LEVEL 143 MEQ/L (136-145); TOTAL PROTEIN 7.2 GM/DL (6.4-8.2); TRIGLYCERIDES LEVEL 100 MG/DL (<150)
[2017-12-01 16:55] LABS: ESTIMATED AVERAGE GLUCOSE 169 MG/DL (60-110); HEMOGLOBIN A1c 7.5 %
[2017-12-01 17:49] LABS: CREATININE, URINE 95.2 MG/DL; MALB URINE SIEMENS 6.6 MG/L; MAU/CREAT RATIO 6.9 MCG/MG (0.0-30.0)
== END ==
LOC: M SFHCCAPE 08:45
DX: E11.8 Type 2 diabetes mellitus with unspecified complications (principal); I50.9 Heart failure, unspecified
CPT/HCPCS: 80053

== ENCOUNTER → 2017-12-03 | Outpatient (REF) | payer MEDICARE ==
[2017-12-03 16:50] LABS: BASO # 0.1 10^3/uL (0.0-0.2); BASO % 0.8 % (0.0-1.0); EOS # 0.1 10^3/uL (0.0-0.50); EOS % 2.2 % (0.0-3.0); HEMATOCRIT 31.1 % (36.0-47.0); HEMOGLOBIN 9.8 g/dl (12.0-15.5); IMMATURE GRANULOCYTE % 0.3 % (0-3.0); LYMPH # 1.7 10^3/uL (1.5-4.5); LYMPH % 26.8 % (24.0-44.0); MEAN CORPUSCULAR HEMOGLOBIN 27.8 pg (27.0-33.0); MEAN CORPUSCULAR HGB CONC 31.5 g/dl (32.0-36.5); MEAN CORPUSCULAR VOLUME 88.4 fl (80.0-96.0); MONO # 0.7 10^3/uL (0.0-0.8); MONO % 10.5 % (0.0-5.0); NEUTROPHILS # 3.8 10^3/uL (1.8-7.7); NEUTROPHILS % 59.4 % (36.0-66.0); PLATELET COUNT, AUTOMATED 155 10^3/uL (150-450); RED BLOOD COUNT 3.52 10^6/uL (4.00-5.40); RED CELL DISTRIBUTION WIDTH 13.8 % (11.5-14.5); RETIC HEMOGLOBIN EQUIVALENT 32.4 pg (24-36); RETICULOCYTE # 29.2 10^9/L (17-77); RETICULOCYTE % 0.8 % (0.5-1.5); WHITE BLOOD COUNT 6.4 10^3/uL (4.0-10.0)
[2017-12-03 16:51] LABS: FERRITIN 13 NG/ML (8-252); IRON (FE) 51 UG/DL (50-170); PERCENT SATURATION 12.7 % (13.2-45.0); TOTAL IRON BINDING CAPACITY 403 UG/DL (250-450)
== END ==
LOC: M SFHCCAPE 08:37
DX: D64.9 Anemia, unspecified (principal)
CPT/HCPCS: 83550

== ENCOUNTER → 2018-02-04 | Outpatient (CLI) | payer MEDICARE | LOC: M PAIN 11:00 | DX: M79.1 Myalgia (principal); I11.0 Hypertensive heart disease with heart failure; E11.9 Type 2 diabetes mellitus without complications; I50.9 Heart failure, unspecified; E78.5 Hyperlipidemia, unspecified; K21.9 Gastro-esophageal reflux disease without esophagitis; K44.9 Diaphragmatic hernia without obstruction or gangrene; J45.909 Unspecified asthma, uncomplicated; Z79.82 Long term (current) use of aspirin; Z79.4 Long term (current) use of insulin; Z79.899 Other long term (current) drug therapy; Z88.0 Allergy status to penicillin; Z88.2 Allergy status to sulfonamides | CPT/HCPCS: G0463 ==

== ENCOUNTER → 2018-03-04 | Outpatient (REF) | payer MEDICARE ==
[2018-03-04 17:41] LABS: ALBUMIN 3.6 GM/DL (3.2-5.2); ALKALINE PHOSPHATASE 109 U/L (45-117); ALT/SGPT 23 U/L (12-78); ANION GAP 5 MEQ/L (8-16); AST/SGOT 31 U/L (7-37); BILIRUBIN,TOTAL 0.5 MG/DL (0.2-1.0); BLOOD UREA NITROGEN 19 MG/DL (7-18); CALCIUM LEVEL 8.9 MG/DL (8.8-10.2); CARBON DIOXIDE LEVEL 30 MEQ/L (21-32); CHLORIDE LEVEL 108 MEQ/L (98-107); CREATININE FOR GFR 1.13 MG/DL (0.55-1.30); GLOMERULAR FILTRATION RATE 49.2 (>32); GLUCOSE, FASTING 73 MG/DL (70-100); POTASSIUM SERUM 4.1 MEQ/L (3.5-5.1); SODIUM LEVEL 143 MEQ/L (136-145); TOTAL PROTEIN 7.2 GM/DL (6.4-8.2)
[2018-03-04 17:57] LABS: ESTIMATED AVERAGE GLUCOSE 146 MG/DL (60-110); HEMOGLOBIN A1c 6.7 %
[2018-03-04 19:34] LABS: BASO # 0.1 10^3/uL (0.0-0.2); EOS # 0.1 10^3/uL (0.0-0.50); EOS % 2.1 % (0.0-3.0); HEMATOCRIT 34.2 % (36.0-47.0); IMMATURE GRANULOCYTE % 0.4 % (0-3.0); LYMPH # 2.1 10^3/uL (1.5-4.5); LYMPH % 30.3 % (24.0-44.0); MEAN CORPUSCULAR HEMOGLOBIN 28.5 pg (27.0-33.0); MEAN CORPUSCULAR HGB CONC 32.2 g/dl (32.0-36.5); MEAN CORPUSCULAR VOLUME 88.6 fl (80.0-96.0); MONO # 0.7 10^3/uL (0.0-0.8); MONO % 10.2 % (0.0-5.0); NEUTROPHILS # 3.8 10^3/uL (1.8-7.7); PLATELET COUNT, AUTOMATED 163 10^3/uL (150-450); RED BLOOD COUNT 3.86 10^6/uL (4.00-5.40); RED CELL DISTRIBUTION WIDTH 14.6 % (11.5-14.5); WHITE BLOOD COUNT 6.8 10^3/uL (4.0-10.0)
== END ==
LOC: M SFHCCAPE 07:19
DX: E11.8 Type 2 diabetes mellitus with unspecified complications (principal); D50.9 Iron deficiency anemia, unspecified
CPT/HCPCS: 80053

== ENCOUNTER → 2018-03-31 | Outpatient (CLI) | payer MEDICARE | LOC: M RAD 09:00 | DX: R42 Dizziness and giddiness (principal); I65.29 Occlusion and stenosis of unspecified carotid artery; K74.60 Unspecified cirrhosis of liver; R93.2 Abnormal findings on diagnostic imaging of liver and biliary tract | CPT/HCPCS: 76705 ==

== ENCOUNTER → 2018-03-31 | Outpatient (CLI) | payer MEDICARE | LOC: M RAD 08:56 | DX: K74.60 Unspecified cirrhosis of liver (principal); R93.2 Abnormal findings on diagnostic imaging of liver and biliary tract ==

== ENCOUNTER → 2018-04-22 | Outpatient (CLI) | payer MEDICARE | LOC: M RAD 09:34 | DX: Z12.31 Encounter for screening mammogram for malignant neoplasm of breast (principal) | CPT/HCPCS: 77067 ==

== ENCOUNTER → 2018-06-03 | Outpatient (REF) | payer MEDICARE ==
[~2018-06-03] MED LIST changes: +LISI40TA PO; -LISI40TAB PO
[2018-06-03 17:11] LABS: BASO # 0.1 10^3/uL (0.0-0.2); BASO % 0.7 % (0.0-1.0); EOS # 0.2 10^3/uL (0.0-0.50); EOS % 2.2 % (0.0-3.0); HEMATOCRIT 35.9 % (36.0-47.0); HEMOGLOBIN 11.4 g/dl (12.0-15.5); LYMPH # 2.2 10^3/uL (1.5-4.5); LYMPH % 32.2 % (24.0-44.0); MEAN CORPUSCULAR HEMOGLOBIN 29.3 pg (27.0-33.0); MEAN CORPUSCULAR HGB CONC 31.8 g/dl (32.0-36.5); MEAN CORPUSCULAR VOLUME 92.3 fl (80.0-96.0); MONO # 0.7 10^3/uL (0.0-0.8); MONO % 10.4 % (0.0-5.0); NEUTROPHILS # 3.7 10^3/uL (1.8-7.7); NEUTROPHILS % 54.2 % (36.0-66.0); PLATELET COUNT, AUTOMATED 157 10^3/uL (150-450); RED BLOOD COUNT 3.89 10^6/uL (4.00-5.40); WHITE BLOOD COUNT 6.8 10^3/uL (4.0-10.0)
[2018-06-03 17:16] LABS: HEMOGLOBIN A1c 7.5 %
[2018-06-03 17:23] LABS: ALBUMIN 3.5 GM/DL (3.2-5.2); BILIRUBIN,TOTAL 0.5 MG/DL (0.2-1.0); CALCIUM LEVEL 8.7 MG/DL (8.8-10.2); CHOLESTEROL RISK RATIO 2.645 (<5); CREATININE FOR GFR 1.34 MG/DL (0.55-1.30); GLOMERULAR FILTRATION RATE 40.4 (>32); POTASSIUM SERUM 4.4 MEQ/L (3.5-5.1); THYROID STIMULATING HORMONE 1.31 uIU/ML (0.358-3.740); TOTAL PROTEIN 7.2 GM/DL (6.4-8.2)
[2018-06-03 17:28] LABS: MALB URINE SIEMENS 6.5 MG/L; MAU/CREAT RATIO 4.9 MCG/MG (0.0-30.0)
== END ==
LOC: M SFHCCAPE 08:41
PROVIDERS: ATTEND Physician Assistant
DX: E11.8 Type 2 diabetes mellitus with unspecified complications (principal)

== ENCOUNTER → 2018-06-10 | Outpatient (REF) | payer MEDICARE ==
[2018-06-10 16:45] LABS: BASO % 0.5 % (0.0-1.0); EOS # 0.1 10^3/uL (0.0-0.50); EOS % 2.3 % (0.0-3.0); HEMOGLOBIN 11.4 g/dl (12.0-15.5); LYMPH # 1.6 10^3/uL (1.5-4.5); LYMPH % 26.3 % (24.0-44.0); MEAN CORPUSCULAR HEMOGLOBIN 29.1 pg (27.0-33.0); MEAN CORPUSCULAR HGB CONC 31.7 g/dl (32.0-36.5); MEAN CORPUSCULAR VOLUME 91.8 fl (80.0-96.0); MONO # 0.5 10^3/uL (0.0-0.8); MONO % 8.5 % (0.0-5.0); NEUTROPHILS # 3.7 10^3/uL (1.8-7.7); NEUTROPHILS % 62.1 % (36.0-66.0); PLATELET COUNT, AUTOMATED 148 10^3/uL (150-450); RED BLOOD COUNT 3.92 10^6/uL (4.00-5.40)
[2018-06-10 16:46] LABS: ALBUMIN 3.6 GM/DL (3.2-5.2); BILIRUBIN,DIRECT 0.2 MG/DL (0.0-0.2); BILIRUBIN,TOTAL 0.5 MG/DL (0.2-1.0); CALCIUM LEVEL 8.9 MG/DL (8.8-10.2); CREATININE FOR GFR 1.21 MG/DL (0.55-1.30); GLOMERULAR FILTRATION RATE 45.5 (>32); MAGNESIUM LEVEL 1.5 MG/DL (1.8-2.4); PHOSPHORUS LEVEL 3.7 MG/DL (2.5-4.9); POTASSIUM SERUM 4.1 MEQ/L (3.5-5.1); TOTAL PROTEIN 7.1 GM/DL (6.4-8.2)
== END ==
LOC: M SFHCCAPE 08:36
PROVIDERS: ATTEND Physician Assistant
DX: L29.9 Pruritus, unspecified (principal); K74.60 Unspecified cirrhosis of liver; I10 Essential (primary) hypertension
CPT/HCPCS: 80048; 80076; 82140; 83615; 83735; 84100; 85025; G0463

== ENCOUNTER 2018-07-21 09:15 | Day surgery (SDC) | payer MEDICARE ==
[~2018-07-21] VITALS: Ht 157.5 cm; Wt 93.0 kg
[~2018-07-21 09:15] MED LIST changes: +FERR325T16 PO; +FISH1000 PO; +NS 1,000 ML IV ONE
[2018-07-21] MEDS ORDERED: LIDOCAINE 2% INJ 100 MG/5 ML SDV (FOR ANES.) As Ordered ONE (09:39)
[2018-07-21] MEDS ORDERED: PROPOFOL 200 MG/20 ML VIAL As Ordered ONE (09:39)
[2018-07-21] MEDS ORDERED: fentaNYL 100 MCG/2 ML INJECTION (J3010) As Ordered ONE (09:48)
[2018-07-21] MEDS ORDERED: LABETALOL HCL 100 MG/20 ML VIAL As Ordered ONE (10:26)
--- NOTE | 2018-07-21 10:44 | ROOR ---
Patient Name: May Walden Procedure Date: 07/21/2018 10:23 AM Date of : 1935 Age: 82 Room: [facility] Gender: Female Note Status: Finalized Procedure: Upper GI endoscopy Indications: Cirrhosis rule out esophageal varices Providers: Gianni Morrow MD Referring MD: Andrae Garza Requesting Provider: Medicines: Monitored Anesthesia Care Complications: No immediate complications. Procedure: Pre-Anesthesia Assessment: - The heart rate, respiratory rate, oxygen saturations, blood pressure, adequacy of pulmonary ventilation, and response to care were monitored throughout the procedure. The Endoscope was introduced through the mouth, and advanced to the second part of duodenum. The upper GI endoscopy was accomplished without difficulty. The patient tolerated the procedure well. Findings: The Z-line was regular and was found 40 cm from the incisors. There is no endoscopic evidence of varices in the entire esophagus. There is no endoscopic evidence of portal hypertension gastropathy in the entire examined stomach. The exam of the duodenum was otherwise normal. Impression: - Z-line regular, 40 cm from the incisors. - No specimens collected. - The examination was otherwise normal. Recommendation: - Patient has a contact number available for emergencies. The signs and symptoms of potential delayed complications were discussed with the patient. Return to normal activities tomorrow. Written discharge instructions were provided to the patient. - High fiber diet. - Discharge patient to home. - Continue present medications. - Return to referring physician. - The findings and recommendations were discussed with the patient's family. Gianni Morrow MD Gianni Morrow MD 07/21/2018 10:43:45 AM This report has been signed electronically. Number of Addenda: 0 Note Initiated On: 07/21/2018 10:23 AM Estimated Blood Loss: Estimated blood loss: none.
[2018-07-21 11:09] VITALS: BP 202/91
== END 2018-07-21 11:18 | disposition home or self-care (01) ==
LOC: M OPP 09:15
PROVIDERS: ATTEND Internal Medicine Gastroenterology
DX: K74.60 Unspecified cirrhosis of liver (principal); J45.909 Unspecified asthma, uncomplicated; Z79.4 Long term (current) use of insulin; Z79.82 Long term (current) use of aspirin; Z79.899 Other long term (current) drug therapy; Z88.0 Allergy status to penicillin; Z88.2 Allergy status to sulfonamides; Z87.891 Personal history of nicotine dependence
CPT/HCPCS: 43235; J3010

== ENCOUNTER → 2018-08-13 | Outpatient (CLI) | payer MEDICARE ==
[~2018-08-13] MED LIST changes: -NS 1,000 ML IV ONE
--- NOTE | 2018-08-28 23:30 | ECWPNPC ---
PATIENT NAME: GERARDO ELLSWORTH : 1935 GENDER: FEMALE VISIT DATE: 08/13/2018 DISCHARGE DATE: 08/13/18 1358 VISIT LOCKED DATE TIME: PHYSICIAN: NARCISO MILLER RESOURCE: NARCISO MILLER REASON FOR APPOINTMENT 1. SW/FLANK PAIN HISTORY OF PRESENT ILLNESS HISTORY OF PRESENT ILLNESS: HERE FOR F/U OF CHRONIC LEFT ABDOMINAL AND LOW BACK PAIN.CONTINUES TO DO WELL SINCE TPI THIS PAST SUMMER.RATING PAIN VAS 0/10. PAIN THE PATIENT DESCRIBES THE PAIN... FALL RISK SCREENING: SCREENING : NO FALLS IN THE PAST YEAR. CURRENT MEDICATIONS TAKING OMEPRAZOLE 40 MG CAPSULE DELAYED RELEASE 1 CAPSULE ORALLY ONCE A DAY TAKING TYLENOL EXTRA STRENGTH 500 MG TABLET 1 TABLETS NEEDED ORALLY TID TAKING ASPIR-81 81 MG TABLET DELAYED RELEASE 1 TABLET ORALLY ONCE A DAY TAKING FISH OIL 1000 MG CAPSULE 2 CAPSULE ORALLY ONCE A DAY TAKING LANTUS SOLO STAR PEN NEEDLES STANDARD .. 55 UNITS INTRADERMALLY DAILY TAKING CARVEDILOL 12.5 MG TABLET ORALLY TAKING LISINOPRIL 40 MG TABLET 1 TABLET ORALLY ONCE A DAY TAKING METFORMIN HCL 1000 MG TABLET TAKE ONE TABLET BY MOUTH TWICE A DAY WITH MEALS TAKING VESICARE 10 MG TABLET 1 TABLET ORALLY ONCE A DAY TAKING IRON (FERROUS GLUCONATE) 256 (28 FE) MG TABLET 1 TABLET ORALLY BID TAKING ATORVASTATIN CALCIUM 10 MG TABLET TAKE ONE TABLET BY MOUTH EVERY DAY TAKING METFORMIN HCL 500 MG TABLET 1 TAB ORALLY AT LUNCH TIME TAKING PROAIR HFA 108 (90 BASE) MCG/ACT AEROSOL SOLUTION 2 PUFFS NEEDED INHALATION EVERY 4 HRS TAKING BLOOD GLUCOSE TEST - STRIP DIRECTED IN VITRO THREE TIMES DAILY TAKING LANTUS SOLOSTAR 100 UNIT/ML SOLUTION PEN-INJECTOR INJECT 55 UNITS SUBCUTANEOUSLY EVERY EVENING TAKING FUROSEMIDE 40 MG TABLET 1 TABLET ORALLY ONCE A DAY NOT-TAKING CARVEDILOL 12.5 MG TABLET TAKE ONE TABLET BY MOUTH TWICE A DAY NOT-TAKING OMEPRAZOLE 40 MG CAPSULE DELAYED RELEASE TAKE ONE CAPSULE BY MOUTH EVERY DAY MEDICATION LIST REVIEWED AND RECONCILED WITH THE PATIENT PAST MEDICAL HISTORY HYPERTENSION TYPE II DIABETES ARTHRITIS CHF 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 LANG ALLERGIES PENICILLIN (FOR ALLERGIES USE ONLY): RASH: ALLERGY BACTRIM DS: JOINT PAIN: ALLERGY SURGICAL HISTORY APPENDECTOMY 1953 HYSTERECTOMY, TOTAL WITH BSO 1971 KNEE ARTHROSCOPY SHE HAS HAD 4 OR 5 COLONOSCOPIES. AT ONE POINT SHE HAD POLYPS, HOWEVER THE LAST COLONOSCOPY [address] HENDERSON REVEALED NO POLYPS COLONOSPOPY 11/12/15 FAMILY HISTORY FATHER: 77 YRS, OLD AGE MOTHER: 48 YRS, HEMORRHAGE AFTER CHILDBIRTH SIBLINGS: ALIVE, NO KNOWN MEDICAL PROBLEMS,ONLY LIVING SIBLING.ONE SISTER WITH BREAST CANCER AGE 68,ONE SISTER WITH LEUKEMIA AGE 61 SON(S): ALIVE, DM 1 SISTER(S) - HEALTHY. 2 SON(S) , 2 DAUGHTER(S) - HEALTHY. UNKNOWN FAMILY HX. SOCIAL HISTORY GENERAL: TOBACCO USE ARE YOU A:FORMER SMOKER HOW LONG HAS IT BEEN SINCE YOU LAST SMOKED?> 10 YEARS VAPORNO E-CIGARETTENO BMI CARE GOAL FOLLOW-UP ABOVE NORMAL BMI FOLLOW-UPDIETARY MANAGEMENT EDUCATION, GUIDANCE, AND COUNSELING ALCOHOL SCREENING DID YOU HAVE A DRINK CONTAINING ALCOHOL IN THE PAST YEAR?NO POINTS0 INTERPRETATIONNEGATIVE RECREATIONAL DRUG USE DRUG USE?NO CAFFEINE CAFFEINE USE?NO SEXUAL HX HAD SEX IN THE LAST 12 MONTHS (VAGINAL, ORAL, OR ANAL)?NO HAVE YOU EVER HAD AN STD?NO HIV / HEP-C SCREENING HIV TEST OFFERED TO PATIENT:NO NOT HEP-C TEST OFFERED TO PATIENT:NO BORN 1936 [employer] [id number] [employer] THAI. EDUCATION LEVEL OF EDUCATION:HIGH SCHOOL LEARNING BARRIERS / SPECIAL NEEDS CHANGE FROM LAST VISIT?NO 06/10/2018 BARRIERS TO LEARNING?NO HEARING IMPAIRED?NO VISION IMPAIRED?YES :CORRECTIVE LENSES COGNITIVELY IMPAIRED?NO READINESS TO LEARN?YES LEARNING PREFERENCES?NO LEARNING CAPABILITIES PRESENT?YES EMOTIONAL BARRIERS?NO SPECIAL DEVICES?NO BACKGROUND CHECK COORDINATOR NEEDED?NO NO DOMESTIC VIOLENCE DO YOU FEEL SAFE IN YOUR ENVIRONMENT?YES OCCUPATION: RETIRED. DIET: REGULAR. EXERCISE: NO REGULAR EXERCISE. MARITAL STATUS: . OTHERS AT HOME: NONE. NEW PATIENT PAIN DIARY FROM 0-10, WHAT NUMBER IS YOUR PAIN TODAY? 0. PAIN CLINIC PFS, CLERGY, PUBLIC HEALTH REFERRALS PFS REFERRAL NEEDED?NO CLERGY REFERRAL NEEDED?NO PUBLIC HEALTH REFERRAL NEEDED?NO HAS THE PATIENT BEEN EDUCATED REGARDING HIS/HER PLAN OF CARE?YES HAS THE PATIENT BEEN EDUCATED REGARDING PAIN, THE RISK FOR PAIN, THE IMPORTANCE OF EFFECTIVE PAIN MANAGEMENT, AND THE PAIN ASSESSMENT PROCESS?YES ADVANCE DIRECTIVE ADVANCE DIRECTIVE DISCUSSED WITH PATIENT:YES DECLINED IS IN [facility]. NO HISTORY OF EATING DISORDER. NO HISTORY OF PHYSICAL, SEXUAL ABUSE. WEARS SEAT BELTS. CURRENT WITH TETANUS. DID GET PNEUMONIA VACCINE. DOES GET FLU SHOTS. UP TO DATE WITH DENTAL AND EYE EXAMS. SEES [facility] FOR PRIMARY CARE. HOSPITALIZATION/MAJOR DIAGNOSTIC PROCEDURE SURGERIES CHILDBIRTH X 4 REVIEW OF SYSTEMS REVIEWED BY: PROVIDER: NARCISO JIN . CONSTITUTIONAL: ANY CHANGE IN YOUR MEDICAL CONDITION? NO . CHILLS NO . FEVER NO . INFECTION: DO YOU HAVE NEW INFECTIONS? NO . DO YOU HAVE HISTORY OF MRSA? NO . MUSCULOSKELETAL: ANY NEW PATTERNS OF PAIN OR NUMBNESS? NO . GASTROENTEROLOGY: ANY NEW CHANGE IN BOWEL CONTROL? NO . GENITOURINARY: ANY NEW CHANGE IN BLADDER CONTROL? NO . IS THERE A CHANCE YOU COULD BE ? NO . HEMATOLOGY/LYMPH: DO YOU TAKE ANY BLOOD THINNERS? (FOR EXAMPLE- COUMADIN, PLAVIX, AGGRENOX, PLATEL, PRADAXA, OR XARELTO) NO . WHEN WAS YOUR LAST DOSE? DATE: TIME: . NEUROLOGY: HAVE YOU FALLEN IN THE PAST 12 MONTHS? NO . ANY NEW EXTREMITY NUMBNESS OR WEAKNESS? YES, BILAT HAND TINGLING WHEN SHE RESTS IN BED . CARDIOLOGY: DO YOU HAVE A PACEMAKER OR DEFIBRILLATOR? NO . RESPIRATORY: HAVE YOU BEEN SICK IN THE PAST WEEK? NO . FEVER NO . FLU LIKE SYMPTOMS? NO . COUGH NO . INTEGUMENTARY: DO YOU HAVE ANY RASHES OR OPEN SORES? NO . ALLERGIC/IMMUNO: ARE YOU ALLERGIC TO IV DYE? NO . ANY NEW ALLERGIES? NO . PSYCHIATRIC: DO YOU HAVE THOUGHTS OF HURTING YOURSELF OR SOMEONE ELSE? NO . ARE YOU ABUSED, NEGLECTED, OR IN AN UNSAFE ENVIRONMENT? NO . ENDOCRINOLOGY: ARE YOU DIABETIC? YES . OTHER: DO YOU NEED ANY PRESCRIPTIONS? NO . IF YES, PLEASE LIST: ____ . ANY NEW PROBLEMS WITH YOUR MEDICATIONS? NO . WHEN DID YOU LAST EAT? ____ . WHEN DID YOU LAST DRINK? ____ . WHAT DID YOU LAST DRINK? ____ . NAME OF PERSON DRIVING YOU HOME? ____ . DO YOU HAVE ANY OTHER QUESTIONS OR CONCERNS NO . VITAL SIGNS WT 212.6 LBS, HT 63 IN, BMI 37.66 INDEX, BP 195/79 MM HG, REPEAT BP 160/74 MM HG, HR 75 /MIN, RR 18 /MIN, TEMP 96.7 F, OXYGEN SAT % 97%, NA INITIALS AW 1328, REVIEWED BY: KALEB B/P MANUAL. EM. EXAMINATION GENERAL EXAMINATION: GENERAL APPEARANCE:AWAKE,ALERT ,PLEAASANT . PSYCHAFFECT NORMAL . LUNGS:LUNG ALLAN ARE CLEAR TO AUSCULTATION BILATERALLY. GOOD MOVEMENT OF AIR . HEART:S1, S2 IN A REGULAR RATE AND RHYTHM. NO SIGNIFICANT MURMURS, RUBS OR GALLOPS NOTED . ASSESSMENTS MYALGIA, OTHER SITE - M79.18 (PRIMARY) TREATMENT MYALGIA, OTHER SITE NOTES: CONTINUE CONSERVATIVE CARE. PROCEDURE CODES FA211 ESTABILISHED PATIENT [facility] FACILITY CHARGE DISPOSITION & COMMUNICATION FOLLOW UP PT WILL CALL ELECTRONICALLY SIGNED BY DAVIN FAIR ON 08/27/2018 AT 03:54 PM EST DISCLAIMER : THIS IS A VISIT SUMMARY EXTRACTED FROM THE [employer] CHART. IT IS NOT A COPY OF THE [employer] PROGRESS NOTE. DAVID
== END ==
LOC: M PAIN 13:30
PROVIDERS: ATTEND Nurse Practitioner Family
DX: M79.18 Myalgia, other site (principal); I11.0 Hypertensive heart disease with heart failure; E11.9 Type 2 diabetes mellitus without complications; M19.90 Unspecified osteoarthritis, unspecified site; I50.9 Heart failure, unspecified; E78.5 Hyperlipidemia, unspecified; K21.9 Gastro-esophageal reflux disease without esophagitis; Z79.82 Long term (current) use of aspirin; Z79.4 Long term (current) use of insulin; Z79.899 Other long term (current) drug therapy; Z88.0 Allergy status to penicillin; Z88.1 Allergy status to other antibiotic agents; Z87.891 Personal history of nicotine dependence; Z86.79 Personal history of other diseases of the circulatory system

== ENCOUNTER → 2018-09-02 | Outpatient (REF) | payer MEDICARE | LOC: M SFHCPLAZ 09:23 | PROVIDERS: ATTEND Dermatology | DX: C44.529 Squamous cell carcinoma of skin of other part of trunk (principal); D04.39 Carcinoma in situ of skin of other parts of face; D49.2 Neoplasm of unspecified behavior of bone, soft tissue, and skin; L82.1 Other seborrheic keratosis; L29.1 Pruritus scroti; L90.5 Scar conditions and fibrosis of skin; K74.60 Unspecified cirrhosis of liver; E11.8 Type 2 diabetes mellitus with unspecified complications; E83.42 Hypomagnesemia; I10 Essential (primary) hypertension ==

== ENCOUNTER → 2018-09-02 | Outpatient (REF) | payer MEDICARE ==
[2018-09-02 17:21] LABS: ALBUMIN 3.6 GM/DL (3.2-5.2); BILIRUBIN,TOTAL 0.6 MG/DL (0.2-1.0); CALCIUM LEVEL 8.7 MG/DL (8.8-10.2); CHOLESTEROL RISK RATIO 2.415 (<5); CREATININE FOR GFR 1.1 MG/DL (0.55-1.30); GLOMERULAR FILTRATION RATE 50.7 (>32); MAGNESIUM LEVEL 1.8 MG/DL (1.8-2.4); MALB URINE SIEMENS 16.9 MG/L; MAU/CREAT RATIO 11.9 MCG/MG (0.0-30.0); POTASSIUM SERUM 4.1 MEQ/L (3.5-5.1); TOTAL PROTEIN 6.9 GM/DL (6.4-8.2)
[2018-09-02 17:36] LABS: BASO # 0.1 10^3/uL (0.0-0.2); EOS # 0.2 10^3/uL (0.0-0.50); EOS % 3.4 % (0.0-3.0); HEMATOCRIT 35.2 % (36.0-47.0); HEMOGLOBIN 11.4 g/dl (12.0-15.5); LYMPH # 1.7 10^3/uL (1.5-4.5); LYMPH % 27.8 % (24.0-44.0); MEAN CORPUSCULAR HEMOGLOBIN 30.2 pg (27.0-33.0); MEAN CORPUSCULAR HGB CONC 32.4 g/dl (32.0-36.5); MEAN CORPUSCULAR VOLUME 93.1 fl (80.0-96.0); MONO # 0.7 10^3/uL (0.0-0.8); MONO % 11.1 % (0.0-5.0); NEUTROPHILS # 3.5 10^3/uL (1.8-7.7); NEUTROPHILS % 56.4 % (36.0-66.0); PLATELET COUNT, AUTOMATED 157 10^3/uL (150-450); RED BLOOD COUNT 3.78 10^6/uL (4.00-5.40); WHITE BLOOD COUNT 6.2 10^3/uL (4.0-10.0)
[2018-09-02 17:59] LABS: HEMOGLOBIN A1c 6.9 %
== END ==
LOC: M SFHCCAPE 07:28
PROVIDERS: ATTEND Physician Assistant
DX: K74.60 Unspecified cirrhosis of liver (principal); E11.8 Type 2 diabetes mellitus with unspecified complications; E83.42 Hypomagnesemia

== ENCOUNTER → 2018-09-02 | Outpatient (CLI) | payer MEDICARE ==
--- NOTE | 2018-09-02 10:40 | REP ---
HEPATIC ULTRASOUND: 09/02/2018. Clinical history: Unspecified cirrhosis of the liver. Comparison: 03/31/2018. Findings: Liver is heterogeneous with coarse echotexture throughout. The left lobe is enlarged. Right lobe has vertical diameter of about 17 cm. It's margins are slightly lobulated. No discrete hepatic mass or intrahepatic biliary dilatation. No cyst. The umbilical vein is recanalized. Main portal vein has a velocity 29 cm/S. It has a diameter of 1.2 centimeters. The gallbladder shows no stone, sludge or pericholecystic fluid. No abnormal wall thickening. No sonographic Trent sign. Common duct is 5.2 mm and unremarkable. Pancreas shows fatty changes and has a fairly limited visualization due to gas shadowing. Those portions seen show no acute finding. The right kidney is 13.6 x 6.2 x 3.9 cm with sinus lipomatosis. There is a column of August as anatomic variation. No hydronephrosis or mass. There is a small amount of ascites around the right lobe of the liver but not elsewhere. Impression: 1. Cirrhosis of the liver with main portal vein velocity 29 cm/S. Trace ascites along the right lobe of the liver. No mass, intrahepatic biliary dilatation, gallstones or other acute finding. The umbilical vein is recanalized. No visible progression or change. 2. Right kidney without hydronephrosis. Gallbladder without stones. Visualized pancreas intact. Electronically Signed by Eliazar Zavaleta MD 09/02/2018 07:40 P
== END ==
LOC: M RAD 08:50
PROVIDERS: ATTEND Internal Medicine Gastroenterology
DX: K74.60 Unspecified cirrhosis of liver (principal)

== ENCOUNTER → 2018-09-23 | Outpatient (REF) | payer MEDICARE ==
[~2018-09-23] MED LIST changes: -ASPI1TAB PO; -ASPI81CH PO; +ASPI81CH49 PO; +ASPI81TA26 PO
[2018-09-23 18:39] LABS: BASO # 0.1 10^3/uL (0.0-0.2); BASO % 0.6 % (0.0-1.0); EOS # 0.2 10^3/uL (0.0-0.50); EOS % 2.5 % (0.0-3.0); HEMATOCRIT 36.5 % (36.0-47.0); HEMOGLOBIN 11.3 g/dl (12.0-15.5); LYMPH % 24.6 % (24.0-44.0); MEAN CORPUSCULAR HEMOGLOBIN 29.8 pg (27.0-33.0); MEAN CORPUSCULAR VOLUME 96.3 fl (80.0-96.0); MONO # 0.7 10^3/uL (0.0-0.8); MONO % 9.2 % (0.0-5.0); NEUTROPHILS % 62.7 % (36.0-66.0); PLATELET COUNT, AUTOMATED 146 10^3/uL (150-450); RED BLOOD COUNT 3.79 10^6/uL (4.00-5.40)
[2018-09-23 18:41] LABS: ALBUMIN 3.8 GM/DL (3.2-5.2); BILIRUBIN,DIRECT 0.1 MG/DL (0.0-0.2); BILIRUBIN,TOTAL 0.4 MG/DL (0.2-1.0); CREATININE FOR GFR 1.18 MG/DL (0.55-1.30); GLOMERULAR FILTRATION RATE 46.8 (>32); POTASSIUM SERUM 4.4 MEQ/L (3.5-5.1); TOTAL PROTEIN 6.9 GM/DL (6.4-8.2)
== END ==
LOC: M SFHCCAPE 07:03
PROVIDERS: ATTEND Physician Assistant
DX: K74.60 Unspecified cirrhosis of liver (principal)

== ENCOUNTER → 2018-09-28 | Outpatient (REF) | payer MEDICARE | LOC: M SFHCCAPE 12:26 | PROVIDERS: ATTEND Physician Assistant | DX: K74.60 Unspecified cirrhosis of liver (principal) ==

== ENCOUNTER 2018-11-13 11:47 | Emergency (ER) | payer MEDICARE ==
[~2018-11-13] VITALS: Ht 157.5 cm; Wt 94.0 kg
[2018-11-13] MEDS ORDERED: ACET-683 PO (12:09)
[2018-11-13] MEDS ORDERED: IBUPROFEN 600 MG TAB PO ONE (16:30)
[2018-11-13] MEDS ORDERED: METH4TAB28 PO (17:03)
[2018-11-13] MEDS ORDERED: NAPR-885 PO (17:04)
[2018-11-13] MEDS ORDERED: CARVedilol 12.5 MG TAB PO ONE (17:30)
[2018-11-13 17:53] VITALS: BP 190/80
== END 2018-11-13 18:00 | disposition home or self-care (01) ==
LOC: M ED 11:47
DX: M51.27 Other intervertebral disc displacement, lumbosacral region (principal); M54.17 Radiculopathy, lumbosacral region; R32 Unspecified urinary incontinence; E10.9 Type 1 diabetes mellitus without complications; I10 Essential (primary) hypertension; E78.5 Hyperlipidemia, unspecified; K21.9 Gastro-esophageal reflux disease without esophagitis; J44.9 Chronic obstructive pulmonary disease, unspecified; J45.909 Unspecified asthma, uncomplicated; M19.90 Unspecified osteoarthritis, unspecified site; C44.90 Unspecified malignant neoplasm of skin, unspecified; Z88.0 Allergy status to penicillin; Z79.899 Other long term (current) drug therapy; Z79.4 Long term (current) use of insulin

== ENCOUNTER → 2019-01-05 | Outpatient (REF) | payer MEDICARE ==
[~2019-01-05] MED LIST changes: +ACET-683 PO; +METH4TAB28 PO; +NAPR-885 PO
[2019-01-05 17:12] LABS: ALBUMIN 3.5 GM/DL (3.2-5.2); BILIRUBIN,TOTAL 0.5 MG/DL (0.2-1.0); CALCIUM LEVEL 8.9 MG/DL (8.8-10.2); CHOLESTEROL RISK RATIO 2.269 (<5); CREATININE FOR GFR 1.15 MG/DL (0.55-1.30); GLOMERULAR FILTRATION RATE 48.1 (>32); POTASSIUM SERUM 4.1 MEQ/L (3.5-5.1); TOTAL PROTEIN 6.9 GM/DL (6.4-8.2)
[2019-01-05 17:28] LABS: HEMOGLOBIN A1c 7.3 %
[2019-01-05 17:37] LABS: CREATININE, URINE 80.3 MG/DL; MALB URINE SIEMENS 14.7 MG/L; MAU/CREAT RATIO 18.3 MCG/MG (0.0-30.0)
== END ==
LOC: M SFHCCAPE 07:04
PROVIDERS: ATTEND Physician Assistant
DX: E11.8 Type 2 diabetes mellitus with unspecified complications (principal)

== ENCOUNTER → 2019-03-10 | Outpatient (REF) | payer MEDICARE ==
[2019-03-10 14:15] LABS: BASO % 0.5 % (0.0-1.0); EOS # 0.1 10^3/uL (0.0-0.5); EOS % 1.2 % (0.0-3.0); HEMATOCRIT 35.4 % (36.0-47.0); HEMOGLOBIN 11.3 g/dl (12.0-15.5); LYMPH # 1.6 10^3/uL (1.5-5.0); LYMPH % 21.3 % (24.0-44.0); MEAN CORPUSCULAR HEMOGLOBIN 30.8 pg (27.0-33.0); MEAN CORPUSCULAR HGB CONC 31.9 g/dl (32.0-36.5); MEAN CORPUSCULAR VOLUME 96.5 fl (80.0-96.0); MONO # 0.7 10^3/uL (0.0-0.8); MONO % 9.2 % (0.0-5.0); NEUTROPHILS % 67.4 % (36.0-66.0); PLATELET COUNT, AUTOMATED 154 10^3/uL (150-450); RED BLOOD COUNT 3.67 10^6/uL (4.00-5.40); WHITE BLOOD COUNT 7.4 10^3/uL (4.0-10.0)
[2019-03-10 14:21] LABS: ALBUMIN 3.8 GM/DL (3.2-5.2); ALT/SGPT 29 U/L (12-78); BILIRUBIN,TOTAL 0.6 MG/DL (0.2-1.0); BLOOD UREA NITROGEN 19 MG/DL (7-18); CALCIUM LEVEL 9.1 MG/DL (8.8-10.2); CARBON DIOXIDE LEVEL 29 MEQ/L (21-32); CHLORIDE LEVEL 106 MEQ/L (98-107); CPK CREATINE PHOSPHOKINASE 104 U/L (26-192); CREATININE FOR GFR 1.15 MG/DL (0.55-1.30); GLOMERULAR FILTRATION RATE 48.1 (>32); GLUCOSE, FASTING 106 MG/DL (70-100); SODIUM LEVEL 143 MEQ/L (136-145); TOTAL PROTEIN 7.2 GM/DL (6.4-8.2)
[2019-03-10 15:32] LABS: HEMOGLOBIN A1c 6.9 %
[2019-03-15 00:08] LABS: ACETYLCHOLINE RCPTOR BINDING A 0.18 nmol/L (0.00-0.24)
[2019-03-15 13:17] LABS: ALBUMIN % 55.5 % (55.8-66.1); ALPHA-1-GLOBULIN % 3.9 % (2.9-4.9); ALPHA-2-GLOBULINS % 13.5 % (7.1-11.8); BETA-1-GLOBULINS % 7.3 % (4.7-7.2)
[2019-03-15 13:18] LABS: ALPHA-1-GLOBULINS 0.28 GM/DL (0.17-0.41); ALPHA-2-GLOBULINS 0.97 GM/DL (0.42-0.99); BETA-1-GLOBULINS 0.53 GM/DL (0.28-0.60); BETA-2-GLOBULINS 0.48 GM/DL (0.19-0.55); BETA-2-GLOBULINS % 6.7 % (3.2-6.5); GAMMA GLOBULIN % 13.1 % (11.1-18.8); GAMMA GLOBULINS 0.94 GM/DL (0.65-1.58)
[2019-03-16 08:08] LABS: VITAMIN B1 LEVEL WHOLE BLOOD 100.2 nmol/L (66.5-200.0); VITAMIN B6,PYRIDOXAL PHOSPHATE 7.3 ug/L (2.0-32.8)
== END ==
LOC: M LABNEURO 11:40
PROVIDERS: ATTEND Psychiatry & Neurology Neurology
DX: D51.9 Vitamin B12 deficiency anemia, unspecified (principal); E51.9 Thiamine deficiency, unspecified; M79.2 Neuralgia and neuritis, unspecified; R53.1 Weakness; E11.9 Type 2 diabetes mellitus without complications; E83.01 Wilson's disease; Z79.899 Other long term (current) drug therapy

== ENCOUNTER → 2019-03-16 | Outpatient (CLI) | payer MEDICARE ==
--- NOTE | 2019-03-16 09:02 | REP ---
RIGHT UPPER QUADRANT ULTRASOUND: Real-time sonographic evaluation of the right upper quadrant is performed. The gallbladder demonstrates no evidence of intraluminal sludge or calculi, wall thickening or pericholecystic fluid. There is no intrahepatic or extrahepatic biliary dilatation, common bile duct measuring 4 mm. Liver demonstrates heterogenous echotexture with no gross mass. Visualized pancreas is grossly unremarkable, not optimally seen due to overlying bowel gas. Right kidney demonstrates no hydronephrosis with normal size 13.5 cm on length. There is no ascites. There is a recannulized umbilical vein incidentally noted demonstrating internal flow with Doppler evaluation. There is no direction of flow in the main portal vein. IMPRESSION: Heterogenous echotexture of the liver with no gross mass. No other significant finding. Electronically Signed by Marino Alfaro MD 03/16/2019 11:25 A
== END ==
LOC: M RAD 07:59
PROVIDERS: ATTEND Internal Medicine Gastroenterology
DX: K74.60 Unspecified cirrhosis of liver (principal)

== ENCOUNTER → 2019-04-14 | Outpatient (REF) | payer MEDICARE ==
[~2019-04-14] MED LIST changes: -OMEP40CA2 PO; +OMEP40CA97 PO
== END ==
LOC: M SFHCPLAZ 10:50
PROVIDERS: ATTEND Dermatology
DX: D04.62 Carcinoma in situ of skin of left upper limb, including shoulder (principal); L82.1 Other seborrheic keratosis

== ENCOUNTER → 2019-05-04 | Outpatient (REF) | payer MEDICARE ==
[2019-05-04 18:37] LABS: CHOLESTEROL RISK RATIO 2.245 (<5); THYROID STIMULATING HORMONE 1.61 uIU/ML (0.358-3.740)
[2019-05-04 18:57] LABS: HEMOGLOBIN A1c 6.6 %
[2019-05-04 18:59] LABS: CREATININE, URINE 93.5 MG/DL; MALB URINE SIEMENS 20.4 MG/L; MAU/CREAT RATIO 21.8 MCG/MG (0.0-30.0)
== END ==
LOC: M SFHCCAPE 07:09
PROVIDERS: ATTEND Physician Assistant
DX: E11.8 Type 2 diabetes mellitus with unspecified complications (principal)

== ENCOUNTER → 2019-05-04 | Outpatient (CLI) | payer MEDICARE ==
--- NOTE | 2019-05-04 13:39 | REPMRS ---
Patient History The patient states she has not had a clinical breast exam in over a year. Family history of breast cancer at age 50 or over in sister, colorectal cancer at age 50 or over in brother, colorectal cancer at age 50 or over in brother. Digital Mammo Screening Bilat: May 04, 2019 - Exam #: [id number] Bilateral CC and MLO view(s) were taken. Technologist: Nanci Cordova, Technologist Prior study comparison: April 22, 2018, bilateral digital mammo screening bilat performed at [facility]. April 16, 2017, digital woman screen mammo, performed at [facility]. March 13, 2016, bilateral digital mammo screening bilat performed at [facility]. FINDINGS: There are scattered fibroglandular densities. There has been no change in the appearance of the mammogram from the prior studies. There is a mild amount of scattered fibroglandular density which is fairly symmetric. There is no interval development of dominant mass, architectural distortion, or grouped microcalcification suggestive of malignancy. 3-D tomosynthesis shows no additional findings. Assessment: BI-RADS/ACR category 1 mammogram. Negative Mammogram. Recommendation Routine screening mammogram of both breasts in 1 year (for women over age 40). This patient's Lifetime Breast Cancer Risk is estimated at 1.1 %. This mammogram was interpreted with the aid of an FDA-approved computer-aided dectection system. Electronically Signed By: Vazquez Oh MD 05/04/19 2736
== END ==
LOC: M RAD 11:04
PROVIDERS: ATTEND Physician Assistant
DX: Z12.31 Encounter for screening mammogram for malignant neoplasm of breast (principal); Z80.3 Family history of malignant neoplasm of breast; Z80.0 Family history of malignant neoplasm of digestive organs

== ENCOUNTER → 2019-05-04 | Outpatient (REF) | payer MEDICARE ==
[2019-05-04 18:29] LABS: BASO # 0.1 10^3/uL (0.0-0.2); BASO % 0.8 % (0.0-1.0); EOS # 0.1 10^3/uL (0.0-0.5); EOS % 1.8 % (0.0-3.0); HEMATOCRIT 35.7 % (36.0-47.0); HEMOGLOBIN 11.4 g/dl (12.0-15.5); LYMPH # 1.8 10^3/uL (1.5-5.0); LYMPH % 27.9 % (24.0-44.0); MEAN CORPUSCULAR HEMOGLOBIN 30.7 pg (27.0-33.0); MEAN CORPUSCULAR HGB CONC 31.9 g/dl (32.0-36.5); MEAN CORPUSCULAR VOLUME 96.2 fl (80.0-96.0); MONO # 0.6 10^3/uL (0.0-0.8); MONO % 8.4 % (0.0-5.0); NEUTROPHILS % 60.8 % (36.0-66.0); PLATELET COUNT, AUTOMATED 149 10^3/uL (150-450); RED BLOOD COUNT 3.71 10^6/uL (4.00-5.40); WHITE BLOOD COUNT 6.6 10^3/uL (4.0-10.0)
[2019-05-04 18:30] LABS: ALBUMIN 3.7 GM/DL (3.2-5.2); BILIRUBIN,TOTAL 0.5 MG/DL (0.2-1.0); CALCIUM LEVEL 8.8 MG/DL (8.8-10.2); CREATININE FOR GFR 1.16 MG/DL (0.55-1.30); GLOMERULAR FILTRATION RATE 47.6 (>32); POTASSIUM SERUM 4.2 MEQ/L (3.5-5.1); TOTAL PROTEIN 7.1 GM/DL (6.4-8.2)
[2019-05-04 18:42] LABS: INR 1.07; PROTHROMBIN TIME 13.6 SECONDS (11.8-14.0)
[2019-05-04 18:43] LABS: PARTIAL THROMBOPLASTIN TIME 33.1 SECONDS (25.0-38.4)
== END ==
LOC: M LABDRWCV 17:17
PROVIDERS: ATTEND Internal Medicine Gastroenterology
DX: K74.60 Unspecified cirrhosis of liver (principal)

== ENCOUNTER → 2019-05-10 | Outpatient (REF) | payer MEDICARE ==
[~2019-05-10] MED LIST changes: -METH4TAB28 PO; +METH4TAB8 PO
== END ==
LOC: M LABDRWCV 16:15
PROVIDERS: ATTEND Internal Medicine Gastroenterology
DX: K74.60 Unspecified cirrhosis of liver (principal)
CPT/HCPCS: 36415; 82140; G0463

== ENCOUNTER → 2019-07-12 | Outpatient (REF) | payer MEDICARE | LOC: M LAB REF 09:13 | PROVIDERS: ATTEND Dermatology | DX: D04.62 Carcinoma in situ of skin of left upper limb, including shoulder (principal) ==

== ENCOUNTER → 2019-07-14 | Outpatient (CLI) | payer MEDICARE ==
--- NOTE | 2019-08-03 02:21 | ECWPNPC ---
PATIENT NAME: GERARDO ELLSWORTH : 1935 GENDER: FEMALE VISIT DATE: 07/14/2019 DISCHARGE DATE: 07/14/19 1236 VISIT LOCKED DATE TIME: PHYSICIAN: NARCISO MILLER RESOURCE: NARCISO MILLER REASON FOR APPOINTMENT 1. BACK PX AND HNP HISTORY OF PRESENT ILLNESS HISTORY OF PRESENT ILLNESS: 83-YEAR-OLD FEMALE REFERRED BY NEUROLOGY, DR. FULLER FOR EVALUATION OF PERSISTENT LOW BACK PAIN. PATIENT HAS A LONG HISTORY OF CHRONIC LOW BACK PAIN. WAS SEEN IN THE PAST AT THE PAIN CENTER AT [facility] WITH IMPROVEMENT USING TRIGGER POINT INJECTIONS. PATIENT FELL JUST BEFORE . HAS HAD AN INCREASE IN PAIN IN THE BUTTOCK REGION AND CENTRAL LOW BACK. PAIN IS MAINLY IN THE RIGHT LOW BACK AND RIGHT ANTERIOR THIGH. RATING PAIN LEVEL AN 8/10 VAS. DESCRIBES PAIN MAINLY DURING THE DAYTIME INTERMITTENT ACHING. PAIN IS AGGRAVATED BY RANGE OF MOTION JOINT MOTION OF THE SPINE. PAIN THE PATIENT DESCRIBES THE PAIN... FALL RISK SCREENING: SCREENING :NO FALLS REPORTED IN THE LAST YEAR CURRENT MEDICATIONS TAKING TYLENOL EXTRA STRENGTH 500 MG TABLET 1-2 TABLETS NEEDED ORALLY TID TAKING IRON (FERROUS GLUCONATE) 256 (28 FE) MG TABLET 1 TABLET ORALLY BID TAKING BLOOD GLUCOSE TEST - STRIP DIRECTED IN VITRO THREE TIMES DAILY TAKING FUROSEMIDE 40 MG TABLET 1 TABLET ORALLY ONCE A DAY TAKING LANTUS SOLOSTAR 100 UNIT/ML SOLUTION PEN-INJECTOR INJECT 55 UNITS SUBCUTANEOUSLY EVERY EVENING TAKING VESICARE 10 MG TABLET 1 TABLET ORALLY ONCE A DAY TAKING GABAPENTIN 100 MG CAPSULE 1 CAPSULE ORALLY TID TAKING PROAIR HFA 108 (90 BASE) MCG/ACT AEROSOL SOLUTION 2 PUFFS NEEDED INHALATION EVERY 4 HRS TAKING LANCETS MISC. - MISCELLANEOUS DIRECTED THREE TIMES DAILY TAKING LANTUS SOLO STAR PEN NEEDLES STANDARD .. 55 UNITS INTRADERMALLY DAILY TAKING HYDROCORTISONE 2.5 % CREAM 1 APPLICATION TO AFFECTED AREA EXTERNALLY TWICE A DAY TO RASH ON FACE TAKING LACTULOSE 10 GM/15ML SOLUTION 15 ML ORALLY BID TAKING XIFAXAN 550 MG TABLET 1 TABLET ORALLY TWICE A DAY TAKING METFORMIN HCL 500 MG TABLET 1 TAB ORALLY AT LUNCH TIME TAKING CARVEDILOL 12.5 MG TABLET TAKE ONE TABLET BY MOUTH TWICE A DAY TAKING OMEPRAZOLE 40 MG CAPSULE DELAYED RELEASE TAKE ONE CAPSULE BY MOUTH EVERY DAY TAKING METFORMIN HCL 1000 MG TABLET TAKE ONE TABLET BY MOUTH TWICE A DAY WITH MEALS TAKING ATORVASTATIN CALCIUM 10 MG TABLET TAKE ONE TABLET BY MOUTH EVERY DAY TAKING ASPIR-81 81 MG TABLET DELAYED RELEASE 1 TABLET ORALLY ONCE A DAY TAKING LANTUS SOLO STAR PEN NEEDLES STANDARD .. 55 UNITS INTRADERMALLY DAILY TAKING LISINOPRIL 40 MG TABLET 1 TABLET ORALLY ONCE A DAY TAKING METFORMIN HCL 500 MG TABLET 1 TAB ORALLY AT LUNCH TIME TAKING VITAMIN E 400 UNIT CAPSULE 1 CAPSULE ORALLY ONCE A DAY DISCONTINUED FISH OIL 1000 MG CAPSULE 2 CAPSULE ORALLY ONCE A DAY DISCONTINUED FUROSEMIDE 40 MG TABLET 1 TABLET ORALLY ONCE A DAY DISCONTINUED OMEPRAZOLE 40 MG CAPSULE DELAYED RELEASE 1 CAPSULE ORALLY ONCE A DAY PAST MEDICAL HISTORY HYPERTENSION TYPE II DIABETES ARTHRITIS CHF 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 AT ONE POINT SHE HAD POLYPS, HOWEVER THE LAST COLONOSCOPY [address] HENDERSON REVEALED NO POLYPS COLONOSPOPY 11/12/15 FAMILY HISTORY FATHER: 77 YRS, OLD AGE MOTHER: 48 YRS, HEMORRHAGE AFTER CHILDBIRTH SIBLINGS: ALIVE, NO KNOWN MEDICAL PROBLEMS,ONLY LIVING SIBLING.ONE SISTER WITH BREAST CANCER AGE 68,ONE SISTER WITH LEUKEMIA AGE 61 SON(S): ALIVE, DM 1 SISTER(S) - HEALTHY. 2 SON(S) , 2 DAUGHTER(S) - HEALTHY. UNKNOWN FAMILY HXDENIES FAMILY HX OF MELANOMA AND PANCREATIC CANCER. SOCIAL HISTORY GENERAL: TOBACCO USE ARE YOU A:FORMER SMOKER 05/31/2019 HOW LONG HAS IT BEEN SINCE YOU LAST SMOKED?> 10 YEARS VAPORNO E-CIGARETTENO HIV / HEP-C SCREENING HIV TEST OFFERED TO PATIENT:NO NOT HEP-C TEST OFFERED TO PATIENT:NO BORN 1936 OTHERS AT HOME: NONE. EDUCATION LEVEL OF EDUCATION:HIGH SCHOOL DIET: REGULAR. LANGUAGE INDONESIAN. NO DOMESTIC VIOLENCE DO YOU FEEL SAFE IN YOUR ENVIRONMENT?YES NEW PATIENT PAIN DIARY FROM 0-10, WHAT NUMBER IS YOUR PAIN TODAY? 0. BMI CARE GOAL FOLLOW-UP ABOVE NORMAL BMI FOLLOW-UPDIETARY MANAGEMENT EDUCATION, GUIDANCE, AND COUNSELING RECREATIONAL DRUG USE DRUG USE?NO EXERCISE: NO REGULAR EXERCISE. LEARNING BARRIERS / SPECIAL NEEDS CHANGE FROM LAST VISIT?NO 05/31/2019 BARRIERS TO LEARNING?NO HEARING IMPAIRED?NO VISION IMPAIRED?YES COGNITIVELY IMPAIRED?NO :CORRECTIVE LENSES READINESS TO LEARN?YES LEARNING PREFERENCES?NO LEARNING CAPABILITIES PRESENT?YES EMOTIONAL BARRIERS?NO SPECIAL DEVICES?NO REWINDER NEEDED?NO PAIN CLINIC PFS, CLERGY, PUBLIC HEALTH REFERRALS PFS REFERRAL NEEDED?NO CLERGY REFERRAL NEEDED?NO PUBLIC HEALTH REFERRAL NEEDED?NO HAS THE PATIENT BEEN EDUCATED REGARDING HIS/HER PLAN OF CARE?YES HAS THE PATIENT BEEN EDUCATED REGARDING PAIN, THE RISK FOR PAIN, THE IMPORTANCE OF EFFECTIVE PAIN MANAGEMENT, AND THE PAIN ASSESSMENT PROCESS?YES LATEX QUESTIONNAIRE LATEX ALLERGY : HAVE YOU EVER DEVELOPED ANY TYPE OF REACTION AFTER HANDLING LATEX PRODUCTS SUCH RUBBER GLOVES, CONDOMS, DIAPHRAGMS, BALLOONS, SOCKS, OR UNDERWEAR?NO LATEX ALLERGY : HAVE YOU EVER DEVELOPED ANY TYPE OF REACTION DURING OR AFTER DENTAL APPOINTMENT, VAGINAL/RECTAL EXAMINATION, SURGICAL PROCEDURE, OR ANY OTHER EXPOSURE?NO LATEX RISK : HAVE YOU EVER HAD ANY DIFFICULTY BREATHING OR HIVES AFTER EATING OR HANDLING ANY FRUITS, OR VEGETABLES; SUCH KIWI, BANANAS, STONE FRUITS, OR CHESTNUTSNO LATEX RISK : DO YOU HAVE A PREVIOUS PERSONAL HISTORY OF MORE THAN NINE SURGERIES, SPINA BIFIDA, OR REPEATED CATHERIZATIONS? NO LATEX RISK : ARE YOU FREQUENTLY EXPOSED TO LATEX PRODUCTS IN YOUR OCCUPATION?NO DATE ASKED : 07/14/2019 CAFFEINE CAFFEINE USE?NO ADVANCE DIRECTIVE ADVANCE DIRECTIVE DISCUSSED WITH PATIENT:YES YU TORRES (DAUGHTER) HCP LATTER DAY [id number] MANDAEISM MARITAL STATUS: . ALCOHOL SCREENING DID YOU HAVE A DRINK CONTAINING ALCOHOL IN THE PAST YEAR?NO POINTS0 INTERPRETATIONNEGATIVE OCCUPATION: RETIRED. SEXUAL HX HAD SEX IN THE LAST 12 MONTHS (VAGINAL, ORAL, OR ANAL)?NO HAVE YOU EVER HAD AN STD?NO IS IN [facility]. NO HISTORY OF EATING DISORDER. NO HISTORY OF PHYSICAL, SEXUAL ABUSE. WEARS SEAT BELTS. CURRENT WITH TETANUS. DID GET PNEUMONIA VACCINE. DOES GET FLU SHOTS. UP TO DATE WITH DENTAL AND EYE EXAMS. SEES [facility] FOR PRIMARY CARE. HOSPITALIZATION/MAJOR DIAGNOSTIC PROCEDURE SURGERIES CHILDBIRTH X 4 REVIEW OF SYSTEMS REVIEWED BY: PROVIDER: NARCISO JIN . CONSTITUTIONAL: ANY CHANGE IN YOUR MEDICAL CONDITION? NO . CHILLS NO . FEVER NO . INFECTION: DO YOU HAVE NEW INFECTIONS? NO . DO YOU HAVE HISTORY OF MRSA? NO . MUSCULOSKELETAL: ANY NEW PATTERNS OF PAIN OR NUMBNESS? NO . GASTROENTEROLOGY: ANY NEW CHANGE IN BOWEL CONTROL? NO . GENITOURINARY: ANY NEW CHANGE IN BLADDER CONTROL? NO . IS THERE A CHANCE YOU COULD BE ? NO . HEMATOLOGY/LYMPH: DO YOU TAKE ANY BLOOD THINNERS? (FOR EXAMPLE- COUMADIN, PLAVIX, AGGRENOX, PLATEL, PRADAXA, OR XARELTO) NO . WHEN WAS YOUR LAST DOSE? DATE: TIME: . NEUROLOGY: HAVE YOU FALLEN IN THE PAST 12 MONTHS? YES . ANY NEW EXTREMITY NUMBNESS OR WEAKNESS? YES . CARDIOLOGY: DO YOU HAVE A PACEMAKER OR DEFIBRILLATOR? NO . RESPIRATORY: HAVE YOU BEEN SICK IN THE PAST WEEK? NO . FEVER NO . FLU LIKE SYMPTOMS? NO . COUGH NO . INTEGUMENTARY: DO YOU HAVE ANY RASHES OR OPEN SORES? NO . ALLERGIC/IMMUNO: ARE YOU ALLERGIC TO IV DYE? NO . ANY NEW ALLERGIES? NO . PSYCHIATRIC: DO YOU HAVE THOUGHTS OF HURTING YOURSELF OR SOMEONE ELSE? NO . ARE YOU ABUSED, NEGLECTED, OR IN AN UNSAFE ENVIRONMENT? NO . ENDOCRINOLOGY: ARE YOU DIABETIC? YES . OTHER: DO YOU NEED ANY PRESCRIPTIONS? NO . IF YES, PLEASE LIST: ____ . ANY NEW PROBLEMS WITH YOUR MEDICATIONS? NO . WHEN DID YOU LAST EAT? ____ . WHEN DID YOU LAST DRINK? ____ . WHAT DID YOU LAST DRINK? ____ . NAME OF PERSON DRIVING YOU HOME? ____ . DO YOU HAVE ANY OTHER QUESTIONS OR CONCERNS NO . VITAL SIGNS WT 210.2 LBS, HT 63 IN, BMI 37.23 INDEX, BP 114/70 MM HG, HR 69 /MIN, RR 18 /MIN, TEMP 97.0 F, OXYGEN SAT % 97%, NA INITIALS [id number]. EXAMINATION GENERAL EXAMINATION: GENERAL AWAKE,ALERT ,PLEAASANT . PSYCH AFFECT NORMAL . LUNGS: LUNG ALLAN ARE CLEAR TO AUSCULTATION BILATERALLY. GOOD MOVEMENT OF AIR . HEART: S1, S2 IN A REGULAR RATE AND RHYTHM. NO SIGNIFICANT MURMURS, RUBS OR GALLOPS NOTED . MUSCULOSKELETAL: MUSCLE STRENGTH TESTING 4/5 BILATERAL LOWER EXTREMITIES. LUMBAR: TRIGGER POINTS:, ELICITED WITH PALPATION OVER RIGHT LUMBAR PARAVERTEBRAL MUSCLES AND RESTRICTION OF ROM IN THIS AREA. DIAGNOSTIC TESTS REVIEWED MRI L/S SPINE-2017. ASSESSMENTS MYALGIA, OTHER SITE - M79.18 (PRIMARY) TREATMENT MYALGIA, OTHER SITE NOTES: TRIGGER POINT INJECTION, RIGHT LOW BACK. PREVENTIVE MEDICINE PAIN CLINIC TEACHING: PROCEDURE TEACHING REVIEWED INFORMATION ON TRIGGER POINT INJECTION PROCEDURE WITH PATIENT. ALSO REVIEWED PRE-PROCEDURE INSTRUCTIONS. PATIENT VERBALIZED AN UNDERSTANDING. CHRISTINE UNDERWOOD 07/14/2019 4:40:51 PM > . PROCEDURE CODES FA211 ESTABILISHED PATIENT [facility] CHARGE DISPOSITION & COMMUNICATION FOLLOW UP POST (REASON: TRIGGER POINT INJECTION, RIGHT LOW BACK) ELECTRONICALLY SIGNED BY DAVIN FAIR ON 08/02/2019 AT 01:35 PM EST DISCLAIMER : THIS IS A VISIT SUMMARY EXTRACTED FROM THE [employer] CHART. IT IS NOT A COPY OF THE [employer] PROGRESS NOTE. DAVID
== END ==
LOC: M PAIN 11:00
PROVIDERS: ATTEND Nurse Practitioner Family
DX: M79.18 Myalgia, other site (principal); I10 Essential (primary) hypertension; E11.9 Type 2 diabetes mellitus without complications; E78.5 Hyperlipidemia, unspecified; K21.9 Gastro-esophageal reflux disease without esophagitis; J45.909 Unspecified asthma, uncomplicated; Z87.891 Personal history of nicotine dependence; Z88.0 Allergy status to penicillin; Z88.1 Allergy status to other antibiotic agents; Z79.4 Long term (current) use of insulin; Z79.82 Long term (current) use of aspirin; Z79.899 Other long term (current) drug therapy

== ENCOUNTER → 2019-08-04 | Outpatient (REF) | payer MEDICARE ==
[2019-08-04 16:18] LABS: BASO # 0.1 10^3/uL (0.0-0.2); BASO % 0.9 % (0.0-1.0); EOS # 0.2 10^3/uL (0.0-0.5); EOS % 3.3 % (0.0-3.0); HEMATOCRIT 35.3 % (36.0-47.0); HEMOGLOBIN 11.1 g/dl (12.0-15.5); LYMPH # 1.7 10^3/uL (1.5-5.0); LYMPH % 29.4 % (24.0-44.0); MEAN CORPUSCULAR HEMOGLOBIN 30.2 pg (27.0-33.0); MEAN CORPUSCULAR HGB CONC 31.4 g/dl (32.0-36.5); MEAN CORPUSCULAR VOLUME 95.9 fl (80.0-96.0); MONO # 0.7 10^3/uL (0.0-0.8); MONO % 11.5 % (0.0-5.0); NEUTROPHILS # 3.1 10^3/uL (1.5-8.5); NEUTROPHILS % 54.6 % (36.0-66.0); PLATELET COUNT, AUTOMATED 155 10^3/uL (150-450); RED BLOOD COUNT 3.68 10^6/uL (4.00-5.40); WHITE BLOOD COUNT 5.8 10^3/uL (4.0-10.0)
[2019-08-04 16:34] LABS: ALBUMIN 3.5 GM/DL (3.2-5.2); BILIRUBIN,TOTAL 0.5 MG/DL (0.2-1.0); CALCIUM LEVEL 9.1 MG/DL (8.8-10.2); CHOLESTEROL RISK RATIO 2.568 (<5); CREATININE FOR GFR 1.13 MG/DL (0.55-1.30); GLOMERULAR FILTRATION RATE 49.1 (>32); POTASSIUM SERUM 4.6 MEQ/L (3.5-5.1); THYROID STIMULATING HORMONE 1.54 uIU/ML (0.358-3.740); TOTAL PROTEIN 6.8 GM/DL (6.4-8.2)
[2019-08-04 16:52] LABS: HEMOGLOBIN A1c 7.2 %
== END ==
LOC: M SFHCCAPE 07:22
PROVIDERS: ATTEND Physician Assistant
DX: E11.8 Type 2 diabetes mellitus with unspecified complications (principal)

== ENCOUNTER → 2019-08-23 | Outpatient (CLI) | payer MEDICARE ==
[~2019-08-23] MED LIST changes: +BUPIVACAINE HCL 0.25% 30 ML VIAL As Ordered ONE; +TRIAMCINOLONE ACETONIDE SUSP 40 MG/ML VIAL (J3301) As Ordered ONE
--- NOTE | 2019-08-26 01:43 | ECWPNPC ---
PATIENT NAME: GERARDO ELLSWORTH : 1935 GENDER: FEMALE VISIT DATE: 08/23/2019 DISCHARGE DATE: 08/23/19 1454 VISIT LOCKED DATE TIME: PHYSICIAN: FRANCISCO LANG MD RESOURCE: FRANCISCO LANG MD REASON FOR APPOINTMENT 1. TPI, RIGHT LOW BACK HISTORY OF PRESENT ILLNESS HISTORY OF PRESENT ILLNESS: PAIN THE PATIENT DESCRIBES THE PAIN... FALL RISK SCREENING: SCREENING :NO FALLS REPORTED IN THE LAST YEAR CURRENT MEDICATIONS TAKING TYLENOL EXTRA STRENGTH 500 MG TABLET 1-2 TABLETS NEEDED ORALLY TID, NOTES: 08-22-191799 TAKING IRON (FERROUS GLUCONATE) 256 (28 FE) MG TABLET 1 TABLET ORALLY BID, NOTES: 08-23-19899 TAKING BLOOD GLUCOSE TEST - STRIP DIRECTED IN VITRO THREE TIMES DAILY TAKING VESICARE 10 MG TABLET 1 TABLET ORALLY ONCE A DAY, NOTES: 08-23-19899 TAKING GABAPENTIN 300 MG CAPSULE 1 CAPSULE ORALLY TID, NOTES: 08-23-19899 TAKING PROAIR HFA 108 (90 BASE) MCG/ACT AEROSOL SOLUTION 2 PUFFS NEEDED INHALATION EVERY 4 HRS, NOTES: 08-23-19629 TAKING LANCETS MISC. - MISCELLANEOUS DIRECTED THREE TIMES DAILY TAKING HYDROCORTISONE 2.5 % CREAM 1 APPLICATION TO AFFECTED AREA EXTERNALLY TWICE A DAY TO RASH ON FACE, NOTES: MORE THAN 2 DAYS AGO TAKING LACTULOSE 10 GM/15ML SOLUTION 15 ML ORALLY THREE TIMES DAILY, NOTES: 08-22-191199 TAKING OMEPRAZOLE 40 MG CAPSULE DELAYED RELEASE TAKE ONE CAPSULE BY MOUTH EVERY DAY , NOTES: 08-23-19899 TAKING ATORVASTATIN CALCIUM 10 MG TABLET TAKE ONE TABLET BY MOUTH EVERY DAY , NOTES: 08-23-19899 TAKING ASPIR-81 81 MG TABLET DELAYED RELEASE 1 TABLET ORALLY ONCE A DAY, NOTES: 08-22-191199 TAKING LANTUS SOLO STAR PEN NEEDLES STANDARD .. 55 UNITS INTRADERMALLY DAILY, NOTES: 08-22-192129 TAKING LISINOPRIL 40 MG TABLET 1 TABLET ORALLY ONCE A DAY, NOTES: 08-23-19899 TAKING METFORMIN HCL 500 MG TABLET 1 TAB ORALLY AT LUNCH TIME, NOTES: 08-22-191199 TAKING VITAMIN E 400 UNIT CAPSULE 1 CAPSULE ORALLY ONCE A DAY, NOTES: 08-22-191199 TAKING CARVEDILOL 12.5 MG TABLET TAKE ONE TABLET BY MOUTH TWICE A DAY , NOTES: 08-23-19899 TAKING FUROSEMIDE 40 MG TABLET 1 TABLET ORALLY ONCE A DAY, NOTES: 08-23-19899 TAKING METFORMIN HCL 1000 MG TABLET TAKE ONE TABLET BY MOUTH TWICE A DAY WITH MEALS , NOTES: 08-22-19 1800 NOT-TAKING LANTUS SOLOSTAR 100 UNIT/ML SOLUTION PEN-INJECTOR INJECT 55 UNITS SUBCUTANEOUSLY EVERY EVENING NOT-TAKING LANTUS SOLO STAR PEN NEEDLES STANDARD .. 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 AT ONE POINT SHE HAD POLYPS, HOWEVER THE LAST COLONOSCOPY [address] HENDERSON REVEALED NO POLYPS COLONOSPOPY 11/12/15 FAMILY HISTORY FATHER: 77 YRS, OLD AGE MOTHER: 48 YRS, HEMORRHAGE AFTER CHILDBIRTH SIBLINGS: , NO KNOWN MEDICAL PROBLEMS,ONLY LIVING SIBLING.ONE SISTER WITH BREAST CANCER AGE 68,ONE SISTER WITH LEUKEMIA AGE 61 SON(S): ALIVE, DM 2 SON(S) , 2 DAUGHTER(S) - HEALTHY. UNKNOWN FAMILY HX DENIES FAMILY HX OF MELANOMA AND PANCREATIC CANCER. ONE SISTER HEART ATTACK. SOCIAL HISTORY GENERAL: TOBACCO USE ARE YOU A:FORMER SMOKER HOW LONG HAS IT BEEN SINCE YOU LAST SMOKED?> 10 YEARS VAPORNO E-CIGARETTENO HIV / HEP-C SCREENING HIV TEST OFFERED TO PATIENT:NO NOT HEP-C TEST OFFERED TO PATIENT:NO BORN 193 OTHERS AT HOME: NONE. EDUCATION LEVEL OF EDUCATION:HIGH SCHOOL DIET: REGULAR. LANGUAGE GUATEMALAN. NO DOMESTIC VIOLENCE DO YOU FEEL SAFE IN YOUR ENVIRONMENT?YES NEW PATIENT PAIN DIARY FROM 0-10, WHAT NUMBER IS YOUR PAIN TODAY? 0. BMI CARE GOAL FOLLOW-UP ABOVE NORMAL BMI FOLLOW-UPDIETARY MANAGEMENT EDUCATION, GUIDANCE, AND COUNSELING RECREATIONAL DRUG USE DRUG USE?NO EXERCISE: NO REGULAR EXERCISE. LEARNING BARRIERS / SPECIAL NEEDS CHANGE FROM LAST VISIT?NO 08/11/19 BARRIERS TO LEARNING?NO HEARING IMPAIRED?NO VISION IMPAIRED?YES :CORRECTIVE LENSES COGNITIVELY IMPAIRED?NO READINESS TO LEARN?YES LEARNING PREFERENCES?NO LEARNING CAPABILITIES PRESENT?YES EMOTIONAL BARRIERS?NO SPECIAL DEVICES?NO DE IONIZER OPERATOR NEEDED?NO PAIN CLINIC PFS, CLERGY, PUBLIC HEALTH REFERRALS PFS REFERRAL NEEDED?NO CLERGY REFERRAL NEEDED?NO PUBLIC HEALTH REFERRAL NEEDED?NO HAS THE PATIENT BEEN EDUCATED REGARDING HIS/HER PLAN OF CARE?YES HAS THE PATIENT BEEN EDUCATED REGARDING PAIN, THE RISK FOR PAIN, THE IMPORTANCE OF EFFECTIVE PAIN MANAGEMENT, AND THE PAIN ASSESSMENT PROCESS?YES LATEX QUESTIONNAIRE LATEX ALLERGY : HAVE YOU EVER DEVELOPED ANY TYPE OF REACTION AFTER HANDLING LATEX PRODUCTS SUCH RUBBER GLOVES, CONDOMS, DIAPHRAGMS, BALLOONS, SOCKS, OR UNDERWEAR?NO LATEX ALLERGY : HAVE YOU EVER DEVELOPED ANY TYPE OF REACTION DURING OR AFTER DENTAL APPOINTMENT, VAGINAL/RECTAL EXAMINATION, SURGICAL PROCEDURE, OR ANY OTHER EXPOSURE?NO LATEX RISK : HAVE YOU EVER HAD ANY DIFFICULTY BREATHING OR HIVES AFTER EATING OR HANDLING ANY FRUITS, OR VEGETABLES; SUCH KIWI, BANANAS, STONE FRUITS, OR CHESTNUTSNO LATEX RISK : DO YOU HAVE A PREVIOUS PERSONAL HISTORY OF MORE THAN NINE SURGERIES, SPINA BIFIDA, OR REPEATED CATHERIZATIONS? NO LATEX RISK : ARE YOU FREQUENTLY EXPOSED TO LATEX PRODUCTS IN YOUR OCCUPATION?NO DATE ASKED : 07/14/2019 CAFFEINE CAFFEINE USE?NO ADVANCE DIRECTIVE ADVANCE DIRECTIVE DISCUSSED WITH PATIENT:YES YU TORRES (DAUGHTER) HCP YARSANISM [id number] CONFUCIANIST MARITAL STATUS: . ALCOHOL SCREENING DID YOU HAVE A DRINK CONTAINING ALCOHOL IN THE PAST YEAR?NO POINTS0 INTERPRETATIONNEGATIVE OCCUPATION: RETIRED. SEXUAL HX HAD SEX IN THE LAST 12 MONTHS (VAGINAL, ORAL, OR ANAL)?NO HAVE YOU EVER HAD AN STD?NO IS IN [facility]. NO HISTORY OF EATING DISORDER. NO HISTORY OF PHYSICAL, SEXUAL ABUSE. WEARS SEAT BELTS. CURRENT WITH TETANUS. DID GET PNEUMONIA VACCINE. DOES GET FLU SHOTS. UP TO DATE WITH DENTAL AND EYE EXAMS. SEES [facility] FOR PRIMARY CARE.PRE PROCEDURE PAT PHONE CALL 08/11/2019 [facility]. HOSPITALIZATION/MAJOR DIAGNOSTIC PROCEDURE SURGERIES CHILDBIRTH X 4 REVIEW OF SYSTEMS REVIEWED BY: PROVIDER: . CONSTITUTIONAL: ANY CHANGE IN YOUR MEDICAL CONDITION? NO . CHILLS NO . FEVER NO . INFECTION: DO YOU HAVE NEW INFECTIONS? NO . DO YOU HAVE HISTORY OF MRSA? NO . MUSCULOSKELETAL: ANY NEW PATTERNS OF PAIN OR NUMBNESS? NO . GASTROENTEROLOGY: ANY NEW CHANGE IN BOWEL CONTROL? NO . GENITOURINARY: ANY NEW CHANGE IN BLADDER CONTROL? NO . IS THERE A CHANCE YOU COULD BE ? NO . HEMATOLOGY/LYMPH: DO YOU TAKE ANY BLOOD THINNERS? (FOR EXAMPLE- COUMADIN, PLAVIX, AGGRENOX, PLATEL, PRADAXA, OR XARELTO) NO . WHEN WAS YOUR LAST DOSE? DATE: TIME: . NEUROLOGY: HAVE YOU FALLEN IN THE PAST 12 MONTHS? YES . ANY NEW EXTREMITY NUMBNESS OR WEAKNESS? NO . CARDIOLOGY: DO YOU HAVE A PACEMAKER OR DEFIBRILLATOR? NO . RESPIRATORY: HAVE YOU BEEN SICK IN THE PAST WEEK? NO . FEVER NO . FLU LIKE SYMPTOMS? NO . COUGH NO . INTEGUMENTARY: DO YOU HAVE ANY RASHES OR OPEN SORES? NO . ALLERGIC/IMMUNO: ARE YOU ALLERGIC TO IV DYE? NO . ANY NEW ALLERGIES? NO . PSYCHIATRIC: DO YOU HAVE THOUGHTS OF HURTING YOURSELF OR SOMEONE ELSE? NO . ARE YOU ABUSED, NEGLECTED, OR IN AN UNSAFE ENVIRONMENT? NO . ENDOCRINOLOGY: ARE YOU DIABETIC? YES FSBS [id number] . OTHER: DO YOU NEED ANY PRESCRIPTIONS? NO . IF YES, PLEASE LIST: ____ . ANY NEW PROBLEMS WITH YOUR MEDICATIONS? NO . WHEN DID YOU LAST EAT? 08/22/19 1700 . WHEN DID YOU LAST DRINK? 08/23/19 0930 . WHAT DID YOU LAST DRINK? WATER . NAME OF PERSON DRIVING YOU HOME? ADILSON CALLAHAN . DO YOU HAVE ANY OTHER QUESTIONS OR CONCERNS NO . VITAL SIGNS WT 210.8 LBS, HT 63 IN, BMI 37.34 INDEX, BP 178/73 MM HG, HR 69 /MIN, RR 18 /MIN, TEMP 97.0 F, OXYGEN SAT % 94%, NA INITIALS AW 1258, REVIEWED BY: SVEN. ASSESSMENTS MYALGIA, OTHER SITE - M79.18 (PRIMARY) PROCEDURES PN TRIGGER POINT INJECTION WITH STEROIDS PRE PROCEDURE DIAGNOSIS 1. MYALGIA 2. PAIN AT RIGHT LOW BACK AREA. POST PROCEDURE DIAGNOSIS 1. MYALGIA 2. PAIN AT RIGHT LOW BACK AREA. PROCEDURE TRIGGER POINT INJECTION AT RIGHT LOW BACK AREA. SURGEON DR. FRANCISCO LANG VICE PRESIDENT FIXED INCOME NONE ANESTHESIA LOCAL PRE PROCEDURE NOTE THE PATIENT HAS A HISTORY OF CHRONIC PAIN AT THE RIGHT LOW BACK AREA. I EVALUATED THE PATIENT AND REVIEWED THE CHART. THERE IS EVIDENCE OF BANDS OF TISSUE WITH RESTRICTION OF MOVEMENT AND PRESENCE OF TRIGGER POINT AT THE AFFECTED AREA. I WENT OVER THE RISKS, ALTERNATIVES, AND BENEFITS ASSOCIATED WITH THIS PROCEDURE. THE PATIENT WOULD LIKE TO PROCEED AND GIVES CONSENT TO PERFORM THE PROCEDURE. THE PATIENT DENIES UNEXPLAINABLE WEIGHT LOSS, FEVER, CHILLS, OR NEW CHANGES IN URINARY OR BOWEL CONTROL DESCRIPTION OF PROCEDURE THE PATIENT WAS BROUGHT TO THE PROCEDURE ROOM AND PLACED IN THE SITTING POSITION. THE AREA WAS CLEANED WITH ALCOHOL. THE PROCEDURE WAS DONE USING ASEPTIC STERILE TECHNIQUE. I CHECKED LATERALITY AND THE LEVEL WHERE THE PROCEDURE WAS GOING TO BE PERFORMED WITH THE PATIENT AND THE SUPPORTING STAFF AT THE MOMENT OF THE TIME OUT IN THE PROCEDURE ROOM. USING A 25-GAUGE NEEDLE, TRIGGER POINTS WERE INJECTED AT THE RIGHT LOW BACK AREA WITH A TOTAL OF 40 ML OF BUPIVACAINE 0.25% AND KENALOG 40 MG. THERE WAS NO EVIDENCE OF BLOOD, PARESTHESIA OR CEREBROSPINAL FLUID DURING THE PROCEDURE. THE PATIENT WAS SENT TO THE RECOVERY ROOM. THE PATIENT WAS MOVING THE EXTREMITIES AND DOING WELL. THERE WAS NO COMPLICATION DURING THE PROCEDURE POST PROCEDURE NOTE THE PATIENT WILL BE SEEN IN A FOLLOW UP IN THE NEXT FEW WEEKS. INSTRUCTIONS WERE GIVEN, QUESTIONS WERE ANSWERED, AND THE PATIENT EXPRESSED UNDERSTANDING AND AGREES WITH THE PLAN. I, KAMILLA GILL, DOCUMENTED THE ABOVE INFORMATION ACTING A SCRIBE FOR DR. LANG. I HAVE REVIEWED THE ABOVE DOCUMENT, WRITTEN BY KAMILLA GILL SCRIBYu AND I VERIFY THAT IT IS ACCURATE. PROCEDURE CODES 17324 INJ TRIGGER POINT 06/23 [facility] DISPOSITION & COMMUNICATION FOLLOW UP 3 WEEKS ELECTRONICALLY SIGNED BY FRANCISCO LANG MD, MD ON 08/25/2019 AT 03:20 PM EST DISCLAIMER : THIS IS A VISIT SUMMARY EXTRACTED FROM THE [employer] CHART. IT IS NOT A COPY OF THE [employer] PROGRESS NOTE. DAVID
== END ==
LOC: M PAIN 11:45
PROVIDERS: ATTEND Anesthesiology
DX: M79.18 Myalgia, other site (principal)
CPT/HCPCS: 20552; J3301

== ENCOUNTER → 2019-10-11 | Outpatient (CLI) | payer MEDICARE ==
[~2019-10-11] MED LIST changes: -BUPIVACAINE HCL 0.25% 30 ML VIAL As Ordered ONE; -TRIAMCINOLONE ACETONIDE SUSP 40 MG/ML VIAL (J3301) As Ordered ONE
--- NOTE | 2019-10-13 02:37 | ECWPNPC ---
PATIENT NAME: GERARDO ELLSWORTH : 1935 GENDER: FEMALE VISIT DATE: 10/11/2019 DISCHARGE DATE: 10/11/19 1115 VISIT LOCKED DATE TIME: PHYSICIAN: NARCISO MILLER RESOURCE: NARCISO MILLER REASON FOR APPOINTMENT 1. POST [id number] - DOES NOT HAVE ZOOM HISTORY OF PRESENT ILLNESS HISTORY OF PRESENT ILLNESS: PATIENT HAS AGREED TO TELEPHONE VISIT TODAY. HAD TRIGGER POINT INJECTIONS TO HER LOWER BACK ON 08/23/2019. REPORTING SIGNIFICANT REDUCTION IN PAIN THAT CONTINUES TODAY. DESCRIBES INTERMITTENT RIGHT LOW BACK PAIN AT A LEVEL 3/10 VAS. DISCUSSED TREATMENT OPTIONS. PAIN THE PATIENT DESCRIBES THE PAIN... FALL RISK SCREENING: SCREENING :NO FALLS REPORTED IN THE LAST YEAR CURRENT MEDICATIONS TAKING TYLENOL EXTRA STRENGTH 500 MG TABLET 1-2 TABLETS NEEDED ORALLY TID, NOTES: 08-22-191799 TAKING IRON (FERROUS GLUCONATE) 256 (28 FE) MG TABLET 1 TABLET ORALLY BID, NOTES: 08-23-19899 TAKING BLOOD GLUCOSE TEST - STRIP DIRECTED IN VITRO THREE TIMES DAILY TAKING GABAPENTIN 300 MG CAPSULE 1 CAPSULE ORALLY TID, NOTES: 08-23-19899 TAKING PROAIR HFA 108 (90 BASE) MCG/ACT AEROSOL SOLUTION 2 PUFFS NEEDED INHALATION EVERY 4 HRS, NOTES: 08-23-19629 TAKING LANCETS MISC. - MISCELLANEOUS DIRECTED THREE TIMES DAILY TAKING HYDROCORTISONE 2.5 % CREAM 1 APPLICATION TO AFFECTED AREA EXTERNALLY TWICE A DAY TO RASH ON FACE, NOTES: MORE THAN 2 DAYS AGO TAKING LACTULOSE 10 GM/15ML SOLUTION 15 ML ORALLY TWICE DAILY, NOTES: 08-22-191199 TAKING ASPIR-81 81 MG TABLET DELAYED RELEASE 1 TABLET ORALLY ONCE A DAY, NOTES: 08-22-191199 TAKING LANTUS SOLO STAR PEN NEEDLES STANDARD .. 55 UNITS INTRADERMALLY DAILY, NOTES: 08-22-192129 TAKING METFORMIN HCL 500 MG TABLET 1 TAB ORALLY AT LUNCH TIME, NOTES: 08-22-191199 TAKING VITAMIN E 400 UNIT CAPSULE 1 CAPSULE ORALLY ONCE A DAY, NOTES: 08-22-191199 TAKING CARVEDILOL 12.5 MG TABLET TAKE ONE TABLET BY MOUTH TWICE A DAY , NOTES: 08-23-19899 TAKING FUROSEMIDE 40 MG TABLET 1 TABLET ORALLY ONCE A DAY, NOTES: 3-3-20 0900 TAKING METFORMIN HCL 1000 MG TABLET TAKE ONE TABLET BY MOUTH TWICE A DAY WITH MEALS , NOTES: 08-22-19 1800 TAKING ATORVASTATIN CALCIUM 10 MG TABLET TAKE ONE TABLET BY MOUTH EVERY DAY TAKING LISINOPRIL 40 MG TABLET 1 TABLET ORALLY ONCE A DAY, NOTES: 08-23-19 0900 TAKING VESICARE 10 MG TABLET 1 TABLET ORALLY ONCE A DAY TAKING OMEPRAZOLE 40 MG CAPSULE DELAYED RELEASE TAKE ONE CAPSULE BY MOUTH EVERY DAY NOT-TAKING LANTUS SOLOSTAR 100 UNIT/ML SOLUTION PEN-INJECTOR INJECT 55 UNITS SUBCUTANEOUSLY EVERY EVENING NOT-TAKING LANTUS SOLO STAR PEN NEEDLES STANDARD .. 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 AT ONE POINT SHE HAD POLYPS, HOWEVER THE LAST COLONOSCOPY [address] HENDERSON REVEALED NO POLYPS COLONOSPOPY 11/12/15 FAMILY HISTORY FATHER: 77 YRS, OLD AGE MOTHER: 48 YRS, HEMORRHAGE AFTER CHILDBIRTH SIBLINGS: , NO KNOWN MEDICAL PROBLEMS,ONLY LIVING SIBLING.ONE SISTER WITH BREAST CANCER AGE 68,ONE SISTER WITH LEUKEMIA AGE 61 SON(S): ALIVE, DM 2 SON(S) , 2 DAUGHTER(S) - HEALTHY. UNKNOWN FAMILY HX DENIES FAMILY HX OF MELANOMA AND PANCREATIC CANCER. ONE SISTER HEART ATTACK. SOCIAL HISTORY GENERAL: TOBACCO USE ARE YOU A:FORMER SMOKER HOW LONG HAS IT BEEN SINCE YOU LAST SMOKED?> 10 YEARS VAPORNO E-CIGARETTENO LATEX QUESTIONNAIRE LATEX ALLERGY : HAVE YOU EVER DEVELOPED ANY TYPE OF REACTION AFTER HANDLING LATEX PRODUCTS SUCH RUBBER GLOVES, CONDOMS, DIAPHRAGMS, BALLOONS, SOCKS, OR UNDERWEAR?NO LATEX ALLERGY : HAVE YOU EVER DEVELOPED ANY TYPE OF REACTION DURING OR AFTER DENTAL APPOINTMENT, VAGINAL/RECTAL EXAMINATION, SURGICAL PROCEDURE, OR ANY OTHER EXPOSURE?NO DATE ASKED : 07/14/2019 LATEX RISK : HAVE YOU EVER HAD ANY DIFFICULTY BREATHING OR HIVES AFTER EATING OR HANDLING ANY FRUITS, OR VEGETABLES; SUCH KIWI, BANANAS, STONE FRUITS, OR CHESTNUTSNO LATEX RISK : DO YOU HAVE A PREVIOUS PERSONAL HISTORY OF MORE THAN NINE SURGERIES, SPINA BIFIDA, OR REPEATED CATHERIZATIONS? NO LATEX RISK : ARE YOU FREQUENTLY EXPOSED TO LATEX PRODUCTS IN YOUR OCCUPATION?NO BMI CARE GOAL FOLLOW-UP ABOVE NORMAL BMI FOLLOW-UPDIETARY MANAGEMENT EDUCATION, GUIDANCE, AND COUNSELING ALCOHOL SCREENING DID YOU HAVE A DRINK CONTAINING ALCOHOL IN THE PAST YEAR?NO POINTS0 INTERPRETATIONNEGATIVE RECREATIONAL DRUG USE DRUG USE?NO CAFFEINE CAFFEINE USE?NO SEXUAL HX HAD SEX IN THE LAST 12 MONTHS (VAGINAL, ORAL, OR ANAL)?NO HAVE YOU EVER HAD AN STD?NO HIV / HEP-C SCREENING HIV TEST OFFERED TO PATIENT:NO NOT HEP-C TEST OFFERED TO PATIENT:NO BORN 1936 [employer] [id number] [employer]ERIAN LANGUAGE J[place]ANESE. EDUCATION LEVEL OF EDUCATION:HIGH SCHOOL LEARNING BARRIERS / SPECIAL NEEDS CHANGE FROM LAST VISIT?NO 08/11/19 BARRIERS TO LEARNING?NO HEARING IMPAIRED?NO VISION IMPAIRED?YES COGNITIVELY IMPAIRED?NO :CORRECTIVE LENSES READINESS TO LEARN?YES LEARNING PREFERENCES?NO LEARNING CAPABILITIES PRESENT?YES EMOTIONAL BARRIERS?NO SPECIAL DEVICES?NO PRINCIPAL TECHNICAL SPECIALIST NEEDED?NO NO DOMESTIC VIOLENCE DO YOU FEEL SAFE IN YOUR ENVIRONMENT?YES OCCUPATION: RETIRED. DIET: REGULAR. EXERCISE: NO REGULAR EXERCISE. MARITAL STATUS: . OTHERS AT HOME: NONE. NEW PATIENT PAIN DIARY PATIENT DESCRIBES PAIN :ACHING, IT COMES AND GOES FROM 0-10, WHAT LEVEL IS YOUR PAIN TODAY?2 PRECIPITATING FACTORS PROLONGED SITTING, OR PROLONGED STANDING ALLEVIATING FACTORS WALKING PAIN CLINIC PFS, CLERGY, PUBLIC HEALTH REFERRALS PFS REFERRAL NEEDED?NO CLERGY REFERRAL NEEDED?NO PUBLIC HEALTH REFERRAL NEEDED?NO HAS THE PATIENT BEEN EDUCATED REGARDING HIS/HER PLAN OF CARE?YES HAS THE PATIENT BEEN EDUCATED REGARDING PAIN, THE RISK FOR PAIN, THE IMPORTANCE OF EFFECTIVE PAIN MANAGEMENT, AND THE PAIN ASSESSMENT PROCESS?YES ADVANCE DIRECTIVE ADVANCE DIRECTIVE DISCUSSED WITH PATIENT:YES YU TORRES (DAUGHTER) HCP IS IN [facility]. NO HISTORY OF EATING DISORDER. NO HISTORY OF PHYSICAL, SEXUAL ABUSE. WEARS SEAT BELTS. CURRENT WITH TETANUS. DID GET PNEUMONIA VACCINE. DOES GET FLU SHOTS. UP TO DATE WITH DENTAL AND EYE EXAMS. SEES [facility] FOR PRIMARY CARE. HOSPITALIZATION/MAJOR DIAGNOSTIC PROCEDURE SURGERIES CHILDBIRTH X 4 REVIEW OF SYSTEMS REVIEWED BY: PROVIDER: NARCISO JIN . CONSTITUTIONAL: ANY CHANGE IN YOUR MEDICAL CONDITION? NO . CHILLS NO . FEVER NO . INFECTION: DO YOU HAVE NEW INFECTIONS? NO . DO YOU HAVE HISTORY OF MRSA? NO . MUSCULOSKELETAL: ANY NEW PATTERNS OF PAIN OR NUMBNESS? NO . GASTROENTEROLOGY: ANY NEW CHANGE IN BOWEL CONTROL? NO . GENITOURINARY: ANY NEW CHANGE IN BLADDER CONTROL? NO . IS THERE A CHANCE YOU COULD BE ? NO . HEMATOLOGY/LYMPH: DO YOU TAKE ANY BLOOD THINNERS? (FOR EXAMPLE- COUMADIN, PLAVIX, AGGRENOX, PLATEL, PRADAXA, OR XARELTO) NO . WHEN WAS YOUR LAST DOSE? DATE: TIME: . NEUROLOGY: HAVE YOU FALLEN IN THE PAST 12 MONTHS? YES ONCE IN WINTER, FELL INTO SNOW . ANY NEW EXTREMITY NUMBNESS OR WEAKNESS? NO . CARDIOLOGY: DO YOU HAVE A PACEMAKER OR DEFIBRILLATOR? NO . RESPIRATORY: HAVE YOU BEEN SICK IN THE PAST WEEK? NO . FEVER NO . FLU LIKE SYMPTOMS? NO . COUGH NO . INTEGUMENTARY: DO YOU HAVE ANY RASHES OR OPEN SORES? NO . ALLERGIC/IMMUNO: ARE YOU ALLERGIC TO IV DYE? NO . ANY NEW ALLERGIES? NO . PSYCHIATRIC: DO YOU HAVE THOUGHTS OF HURTING YOURSELF OR SOMEONE ELSE? NO . ARE YOU ABUSED, NEGLECTED, OR IN AN UNSAFE ENVIRONMENT? NO . ENDOCRINOLOGY: ARE YOU DIABETIC? YES . OTHER: DO YOU NEED ANY PRESCRIPTIONS? NO . IF YES, PLEASE LIST: ____ . ANY NEW PROBLEMS WITH YOUR MEDICATIONS? NO . WHEN DID YOU LAST EAT? ____ . WHEN DID YOU LAST DRINK? ____ . WHAT DID YOU LAST DRINK? ____ . NAME OF PERSON DRIVING YOU HOME? ____ . DO YOU HAVE ANY OTHER QUESTIONS OR CONCERNS NO . ASSESSMENTS MYALGIA, OTHER SITE - M79.18 (PRIMARY) TREATMENT MYALGIA, OTHER SITE NOTES: RETURN TO CLINIC IN 6 WEEKS FOR EVALUATION OF PERSISTENT RIGHT LOW BACK PAIN. CONSIDER TREATMENT OPTIONS. OVERALL TIME SPENT ON TELEPHONE VISIT TODAY WAS APPROXIMATELY 11 MINUTES. NO VITAL SIGNS TAKEN, THIS WAS A VIRTUAL/TELEPHONE VISIT. DISPOSITION & COMMUNICATION FOLLOW UP 6 WEEKS (REASON: PRE PROCEDURE) ELECTRONICALLY SIGNED BY DAVIN FAIR ON 10/12/2019 AT 02:50 PM EDT DISCLAIMER : THIS IS A VISIT SUMMARY EXTRACTED FROM THE [employer] CHART. IT IS NOT A COPY OF THE [employer] PROGRESS NOTE. DAVID
== END ==
LOC: M PAIN 10:15
PROVIDERS: ATTEND Nurse Practitioner Family
DX: M79.18 Myalgia, other site (principal); E11.9 Type 2 diabetes mellitus without complications; I10 Essential (primary) hypertension; Z79.82 Long term (current) use of aspirin; Z79.84 Long term (current) use of oral hypoglycemic drugs; Z79.899 Other long term (current) drug therapy; Z87.891 Personal history of nicotine dependence; Z88.0 Allergy status to penicillin; Z88.1 Allergy status to other antibiotic agents

== ENCOUNTER → 2019-11-03 | Outpatient (REF) | payer MEDICARE ==
[2019-11-03 11:44] LABS: BASO # 0.1 10^3/uL (0.0-0.2); BASO % 0.9 % (0.0-1.0); EOS # 0.1 10^3/uL (0.0-0.5); EOS % 1.9 % (0.0-3.0); HEMATOCRIT 35.6 % (36.0-47.0); HEMOGLOBIN 11.1 g/dl (12.0-15.5); LYMPH # 1.7 10^3/uL (1.5-5.0); LYMPH % 28.7 % (24.0-44.0); MEAN CORPUSCULAR HEMOGLOBIN 29.5 pg (27.0-33.0); MEAN CORPUSCULAR HGB CONC 31.2 g/dl (32.0-36.5); MEAN CORPUSCULAR VOLUME 94.7 fl (80.0-96.0); MONO # 0.9 10^3/uL (0.0-0.8); MONO % 14.8 % (0.0-5.0); NEUTROPHILS # 3.1 10^3/uL (1.5-8.5); NEUTROPHILS % 53.4 % (36.0-66.0); PLATELET COUNT, AUTOMATED 154 10^3/uL (150-450); RED BLOOD COUNT 3.76 10^6/uL (4.00-5.40); WHITE BLOOD COUNT 5.8 10^3/uL (4.0-10.0)
[2019-11-03 12:48] LABS: HEMOGLOBIN A1c 7.7 %
[2019-11-03 13:05] LABS: MALB URINE SIEMENS 13.4 MG/L; MAU/CREAT RATIO 13.2 MCG/MG (0.0-30.0)
[2019-11-03 13:13] LABS: ALBUMIN 3.5 GM/DL (3.2-5.2); BILIRUBIN,TOTAL 0.5 MG/DL (0.2-1.0); CALCIUM LEVEL 9.1 MG/DL (8.8-10.2); CHOLESTEROL RISK RATIO 2.76 (<5); CREATININE FOR GFR 1.19 MG/DL (0.55-1.30); GLOMERULAR FILTRATION RATE 46.1 (>32); POTASSIUM SERUM 4.5 MEQ/L (3.5-5.1); THYROID STIMULATING HORMONE 1.53 uIU/ML (0.358-3.740); TOTAL PROTEIN 6.8 GM/DL (6.4-8.2)
== END ==
LOC: M SFHCCLAY 07:58
PROVIDERS: ATTEND Physician Assistant
DX: E11.8 Type 2 diabetes mellitus with unspecified complications (principal); E78.5 Hyperlipidemia, unspecified

== ENCOUNTER → 2019-11-25 | Outpatient (CLI) | payer MEDICARE ==
--- NOTE | 2019-11-25 12:24 | REP ---
REASON FOR EXAM: Cirrhosis. COMPARISON: Multiple, the latest 03/16/2019. Ultrasonographic evaluation of the liver shows no changes from the prior exam. There is a slight nodular surface to the hepatic edge. The hepatic parenchymal echo pattern is coarsened, status quo. No masses have developed. There is no intrahepatic ductal dilatation. The common bile duct measures between 3 and 4 mm. There is no gallbladder abnormality or change from the prior exam. The imaged portion of pancreas and right kidney are unchanged and again seen to be within normal limits. IMPRESSION: No change from the prior exam with findings as described above. Electronically Signed by Wm Cisse DO 11/25/2019 05:01 P
== END ==
LOC: M RAD 08:47
PROVIDERS: ATTEND Internal Medicine Gastroenterology
DX: K74.60 Unspecified cirrhosis of liver (principal)

== ENCOUNTER → 2019-11-29 | Outpatient (REF) | payer MEDICARE ==
[~2019-11-29] MED LIST changes: +ECOT81TA5 PO; +GABA-845 PO; +LACT20EL PO; +VITA1CAP15 PO; +XIFA550T PO
[2019-12-01 08:09] LABS: MUMPS VIRUS IgG ANTIBODY >300.0 AU/mL (Immune >10.9); RUBEOLA IgG ANTIBODY >300.0 AU/mL (Immune >16.4)
== END ==
LOC: M SFHCCLAY 09:59
PROVIDERS: ATTEND Physician Assistant
DX: Z78.9 Other specified health status (principal)

== ENCOUNTER → 2019-12-25 | Outpatient (CLI) | payer MEDICARE | LOC: M LABSMTC 10:29 | PROVIDERS: ATTEND Anesthesiology | DX: Z03.818 Encounter for observation for suspected exposure to other biological agents ruled out (principal); Z11.59 Encounter for screening for other viral diseases | CPT/HCPCS: C9803; U0003 ==

== ENCOUNTER 2019-12-28 07:32 | Day surgery (SDC) | payer MEDICARE ==
[~2019-12-28] VITALS: Ht 160 cm; Wt 96.2 kg
[~2019-12-28 07:32] MED LIST changes: +NS 1,000 ML IV ONE; -VITA1CAP15 PO; +VITA400C83 PO
[2019-12-28] MEDS ORDERED: LIDOCAINE 2% 100MG/5ML SDV (FOR ANES.) As Ordered ONE (09:03)
[2019-12-28] MEDS ORDERED: propofoL 500 MG/50 ML VIAL As Ordered ONE (09:03)
--- NOTE | 2019-12-28 09:09 | ROOR ---
Patient Name: May Walden Procedure Date: 12/28/2019 8:43 AM Date of : 1935 Age: 84 Room: [facility] Gender: Female Note Status: Finalized Procedure: Upper GI endoscopy Indications: Exclusion of portal hypertensive gastropathy, Follow-up of portal hypertensive gastropathy Providers: Gianni Morrow MD Referring MD: AYDEN Garza pa-c Requesting Provider: Medicines: Monitored Anesthesia Care Complications: No immediate complications. Procedure: Pre-Anesthesia Assessment: - The heart rate, respiratory rate, oxygen saturations, blood pressure, adequacy of pulmonary ventilation, and response to care were monitored throughout the procedure. The Endoscope was introduced through the mouth, and advanced to the second part of duodenum. The upper GI endoscopy was accomplished without difficulty. The patient tolerated the procedure well. Findings: The Z-line was regular and was found 40 cm from the incisors. There is no endoscopic evidence of varices in the entire esophagus. Diffuse mildly erythematous mucosa without bleeding was found in the entire examined stomach. The exam of the duodenum was otherwise normal. Impression: - Z-line regular, 40 cm from the incisors. - Erythematous mucosa in the stomach. - No specimens collected. - The examination was otherwise normal. Recommendation: - Patient has a contact number available for emergencies. The signs and symptoms of potential delayed complications were discussed with the patient. Return to normal activities tomorrow. Written discharge instructions were provided to the patient. - High fiber diet. - Discharge patient to home. - Continue present medications. - Repeat upper endoscopy in 1 year for surveillance. - Return to referring physician. - The findings and recommendations were discussed with the patient. Gianni Morrow MD Gianni Morrow MD 12/28/2019 9:08:39 AM Electronically signed by Gianni Morrow MD Number of Addenda: 0 Note Initiated On: 12/28/2019 8:43 AM Estimated Blood Loss: Estimated blood loss: none.
[2019-12-28 09:30] VITALS: BP 218/93
== END 2019-12-28 09:37 | disposition home or self-care (01) ==
LOC: M OPP 07:32
PROVIDERS: ATTEND Internal Medicine Gastroenterology
DX: K31.89 Other diseases of stomach and duodenum (principal); K21.9 Gastro-esophageal reflux disease without esophagitis; E11.9 Type 2 diabetes mellitus without complications; I10 Essential (primary) hypertension; Z87.891 Personal history of nicotine dependence; Z79.4 Long term (current) use of insulin; Z79.82 Long term (current) use of aspirin; Z79.899 Other long term (current) drug therapy; Z88.0 Allergy status to penicillin; Z88.2 Allergy status to sulfonamides; Z88.8 Allergy status to other drugs, medicaments and biological substances; Z86.010 Personal history of colon polyps

== ENCOUNTER → 2020-02-09 | Outpatient (REF) | payer MEDICARE ==
[~2020-02-09] MED LIST changes: -NS 1,000 ML IV ONE
[2020-02-09 15:10] LABS: BASO % 0.5 % (0.0-1.0); EOS # 0.1 10^3/uL (0.0-0.5); EOS % 2.6 % (0.0-3.0); HEMATOCRIT 34.7 % (36.0-47.0); LYMPH # 1.7 10^3/uL (1.5-5.0); LYMPH % 31.1 % (24.0-44.0); MEAN CORPUSCULAR HEMOGLOBIN 30.8 pg (27.0-33.0); MEAN CORPUSCULAR HGB CONC 31.7 g/dl (32.0-36.5); MEAN CORPUSCULAR VOLUME 97.2 fl (80.0-96.0); MONO # 0.7 10^3/uL (0.0-0.8); MONO % 12.2 % (0.0-5.0); NEUTROPHILS # 2.9 10^3/uL (1.5-8.5); NEUTROPHILS % 53.2 % (36.0-66.0); PLATELET COUNT, AUTOMATED 142 10^3/uL (150-450); RED BLOOD COUNT 3.57 10^6/uL (4.00-5.40); WHITE BLOOD COUNT 5.5 10^3/uL (4.0-10.0)
[2020-02-09 16:16] LABS: ALBUMIN 3.6 GM/DL (3.2-5.2); BILIRUBIN,TOTAL 0.3 MG/DL (0.2-1.0); CALCIUM LEVEL 9.4 MG/DL (8.8-10.2); CHOLESTEROL RISK RATIO 2.415 (<5); CREATININE FOR GFR 1.23 MG/DL (0.55-1.30); GLOMERULAR FILTRATION RATE 44.4 (>32); POTASSIUM SERUM 4.6 MEQ/L (3.5-5.1); THYROID STIMULATING HORMONE 1.45 uIU/ML (0.358-3.740); TOTAL PROTEIN 6.7 GM/DL (6.4-8.2)
== END ==
LOC: M LABDRAWC 12:50
PROVIDERS: ATTEND Physician Assistant
DX: E11.8 Type 2 diabetes mellitus with unspecified complications (principal)

== ENCOUNTER → 2020-04-30 | Outpatient (REF) | payer MEDICARE ==
[2020-04-30 11:46] LABS: BASO # 0.1 10^3/uL (0.0-0.2); BASO % 1.1 % (0.0-1.0); EOS # 0.2 10^3/uL (0.0-0.5); EOS % 2.8 % (0.0-3.0); HEMATOCRIT 37.7 % (36.0-47.0); LYMPH # 1.9 10^3/uL (1.5-5.0); LYMPH % 25.6 % (24.0-44.0); MEAN CORPUSCULAR HEMOGLOBIN 31.3 pg (27.0-33.0); MEAN CORPUSCULAR HGB CONC 31.8 g/dl (32.0-36.5); MEAN CORPUSCULAR VOLUME 98.4 fl (80.0-96.0); MONO # 0.8 10^3/uL (0.0-0.8); MONO % 10.7 % (0.0-5.0); NEUTROPHILS # 4.5 10^3/uL (1.5-8.5); NEUTROPHILS % 59.4 % (36.0-66.0); PLATELET COUNT, AUTOMATED 169 10^3/uL (150-450); RED BLOOD COUNT 3.83 10^6/uL (4.00-5.40); WHITE BLOOD COUNT 7.6 10^3/uL (4.0-10.0)
[2020-04-30 13:43] LABS: BILIRUBIN,TOTAL 0.5 MG/DL (0.2-1.0); CALCIUM LEVEL 9.9 MG/DL (8.8-10.2); CHOLESTEROL RISK RATIO 2.963 (<5); CREATININE FOR GFR 1.44 MG/DL (0.55-1.30); POTASSIUM SERUM 4.5 MEQ/L (3.5-5.1); THYROID STIMULATING HORMONE 1.83 uIU/ML (0.358-3.740); TOTAL PROTEIN 7.6 GM/DL (6.4-8.2)
[2020-04-30 22:20] LABS: HEMOGLOBIN A1c 7.4 %
== END ==
LOC: M SFHCCLAY 08:40
PROVIDERS: ATTEND Physician Assistant
DX: E11.8 Type 2 diabetes mellitus with unspecified complications (principal)

== ENCOUNTER → 2020-05-07 | Outpatient (CLI) | payer MEDICARE ==
--- NOTE | 2020-05-07 13:48 | REPMRS ---
Patient History The patient states she has not had a clinical breast exam in over a year. Patient is postmenopausal. Family history of breast cancer at age 50 or over in sister, colorectal cancer at age 50 or over in brother, colorectal cancer at age 50 or over in brother. No Hormone Replacement Therapy 3D TOMOSYNTHESIS WAS PERFORMED. The [facility] lifetime risk for breast cancer is 0.7%. Volpara breast density b. Digital Woman Screen Mammo: May 07, 2020 - Exam #: [id number] Bilateral CC and MLO view(s) were taken. Technologist: Katelynn Sullivan, Technologist Prior study comparison: May 04, 2019, bilateral digital mammo screening bilat, performed at [facility]. April 22, 2018, bilateral digital mammo screening bilat, performed at [facility]. FINDINGS: There are scattered fibroglandular densities. There has been no change in the appearance of the mammogram from the prior studies. There is a mild amount of residual fibroglandular tissue which is fairly symmetric. There is no interval development of dominant mass, architectural distortion, or clustered microcalcification suggestive of malignancy. Assessment: BI-RADS/ACR category 1 mammogram. Negative Mammogram. Recommendation Routine screening mammogram in 1 year (for women over age 40). This mammogram was interpreted with the aid of an FDA-approved computer-aided dectection system. Electronically Signed By: Marino Alfaro MD 05/07/20 3031
== END ==
LOC: M WHC 12:17
PROVIDERS: ATTEND Physician Assistant
DX: Z12.31 Encounter for screening mammogram for malignant neoplasm of breast (principal); Z80.3 Family history of malignant neoplasm of breast; Z80.0 Family history of malignant neoplasm of digestive organs

== ENCOUNTER → 2020-05-14 | Outpatient (CLI) | payer MEDICARE ==
--- NOTE | 2020-05-14 13:56 | REP ---
INDICATION: I50.9 CHRONIC CHF COMPARISON: 12/10/2017 TECHNIQUE: PA and lateral. FINDINGS: The mediastinum and cardiac silhouette are normal. The lung mott are clear and without acute consolidation, effusion, or pneumothorax. The skeletal structures are intact and normal. IMPRESSION: No acute cardiopulmonary process. <Electronically signed by Kishan Delacruz > 05/14/20 [id number]
== END ==
LOC: M CLY 13:22
PROVIDERS: ATTEND Physician Assistant
DX: I50.9 Heart failure, unspecified (principal); Z23 Encounter for immunization
CPT/HCPCS: 71046; 80048; 90682; 90715; G0008; G0463

== ENCOUNTER → 2020-05-14 | Outpatient (REF) | payer MEDICARE ==
[2020-05-14 17:01] LABS: CALCIUM LEVEL 9.9 MG/DL (8.8-10.2); CREATININE FOR GFR 1.5 MG/DL (0.55-1.30); GLOMERULAR FILTRATION RATE 35.3 (>32); POTASSIUM SERUM 4.5 MEQ/L (3.5-5.1)
== END ==
LOC: M SFHCCLAY 13:42
PROVIDERS: ATTEND Physician Assistant
DX: I11.9 Hypertensive heart disease without heart failure (principal)

== ENCOUNTER → 2020-09-27 | Outpatient (REF) | payer MEDICARE ==
[~2020-09-27] MED LIST changes: +FERR324T21 PO; -FERR325T16 PO; -LISI-538 PO; +LISI20TA33 PO; -LISI40TA PO; +LISI40TA4 PO
[2020-09-27 17:21] LABS: BASO # 0.1 10^3/uL (0.0-0.2); BASO % 1.1 % (0.0-1.0); EOS # 0.2 10^3/uL (0.0-0.5); EOS % 2.6 % (0.0-3.0); HEMATOCRIT 34.8 % (36.0-47.0); HEMOGLOBIN 11.2 g/dl (12.0-15.5); LYMPH # 1.9 10^3/uL (1.5-5.0); LYMPH % 28.4 % (24.0-44.0); MEAN CORPUSCULAR HEMOGLOBIN 30.7 pg (27.0-33.0); MEAN CORPUSCULAR HGB CONC 32.2 g/dl (32.0-36.5); MEAN CORPUSCULAR VOLUME 95.3 fl (80.0-96.0); MONO # 0.7 10^3/uL (0.0-0.8); NEUTROPHILS # 3.7 10^3/uL (1.5-8.5); NEUTROPHILS % 56.4 % (36.0-66.0); PLATELET COUNT, AUTOMATED 165 10^3/uL (150-450); RED BLOOD COUNT 3.65 10^6/uL (4.00-5.40); WHITE BLOOD COUNT 6.5 10^3/uL (4.0-10.0)
[2020-09-27 17:32] LABS: CREATININE, URINE 92.7 MG/DL; MALB URINE SIEMENS 33.3 MG/L; MAU/CREAT RATIO 35.9 MCG/MG (0.0-30.0)
[2020-09-27 17:40] LABS: ALBUMIN 3.8 GM/DL (3.2-5.2); BILIRUBIN,TOTAL 0.6 MG/DL (0.2-1.0); CALCIUM LEVEL 9.3 MG/DL (8.8-10.2); CHOLESTEROL RISK RATIO 2.69 (<5); CREATININE FOR GFR 1.15 MG/DL (0.55-1.30); MAGNESIUM LEVEL 2.5 MG/DL (1.8-2.4); POTASSIUM SERUM 4.5 MEQ/L (3.5-5.1); THYROID STIMULATING HORMONE 1.25 uIU/ML (0.358-3.740)
[2020-09-27 18:03] LABS: HEMOGLOBIN A1c 6.6 %
== END ==
LOC: M SFHCCAPE 10:43
PROVIDERS: ATTEND Physician Assistant
DX: R06.02 Shortness of breath (principal); E11.8 Type 2 diabetes mellitus with unspecified complications; E78.5 Hyperlipidemia, unspecified; I50.9 Heart failure, unspecified

== ENCOUNTER → 2020-10-15 | Outpatient (CLI) | payer MEDICARE ==
[2020-10-15 08:53] LABS: BASO # 0.1 10^3/uL (0.0-0.2); BASO % 0.8 % (0.0-1.0); EOS # 0.1 10^3/uL (0.0-0.5); EOS % 1.9 % (0.0-3.0); HEMATOCRIT 36.5 % (36.0-47.0); HEMOGLOBIN 11.4 g/dl (12.0-15.5); LYMPH # 1.5 10^3/uL (1.5-5.0); LYMPH % 24.3 % (24.0-44.0); MEAN CORPUSCULAR HEMOGLOBIN 30.4 pg (27.0-33.0); MEAN CORPUSCULAR HGB CONC 31.2 g/dl (32.0-36.5); MEAN CORPUSCULAR VOLUME 97.3 fl (80.0-96.0); MONO # 0.7 10^3/uL (0.0-0.8); MONO % 10.9 % (2.0-8.0); NEUTROPHILS # 3.9 10^3/uL (1.5-8.5); NEUTROPHILS % 61.6 % (36.0-66.0); PLATELET COUNT, AUTOMATED 144 10^3/uL (150-450); RED BLOOD COUNT 3.75 10^6/uL (4.00-5.40); WHITE BLOOD COUNT 6.3 10^3/uL (4.0-10.0)
[2020-10-15 09:16] LABS: ALBUMIN 3.7 GM/DL (3.2-5.2); BILIRUBIN,TOTAL 0.6 MG/DL (0.2-1.0); CREATININE FOR GFR 1.15 MG/DL (0.55-1.30); GLOMERULAR FILTRATION RATE 47.9 (>32); POTASSIUM SERUM 4.3 MEQ/L (3.5-5.1)
--- NOTE | 2020-10-15 09:41 | REP ---
INDICATION: CIRRHOSIS / LABS 1ST. FINDINGS: Multiple ultrasonographic images of the liver show the hepatic parenchymal echo texture to appear unchanged from 11/25/2019. There are no focal masses. Once again, there is a nodular surface to the liver status quo. Once again, the hepatic echo-pattern is coarsened status quo. There is no intrahepatic ductal dilatation. The common bile duct measures approximately 3.9 mm in its greatest transverse dimension. Multiple ultrasonographic images of the gallbladder show no focal or diffuse gallbladder wall thickening. There are no echogenic foci within the gallbladder lumen, which casts acoustic shadows. There is no pericholecystic edema. Images of the pancreatic region show no gross abnormality. The imaged portion of the right kidney is unremarkable. IMPRESSION: No significant change from the prior exam. Findings as described above.. Accredited by the [employer] in General Ultrasound. <Electronically signed by Wm Cisse > 10/15/20 0938
== END ==
LOC: M RAD 08:07 → M LAB 08:07
PROVIDERS: ATTEND Internal Medicine Gastroenterology
DX: K74.60 Unspecified cirrhosis of liver (principal); I65.23 Occlusion and stenosis of bilateral carotid arteries

== ENCOUNTER → 2020-10-15 | Outpatient (CLI) | payer MEDICARE ==
--- NOTE | 2020-10-15 09:39 | REP ---
INDICATION: Assess stenosis COMPARISON: 03/31/2018 TECHNIQUE: Carotid ultrasonography was performed bilaterally FINDINGS: Right: CCA systolic: 92.4 centimeters/second CCA diastolic: 6.9 centimeters/second ICA systolic: 79.1 centimeters/second ICA diastolic: 11.0 centimeters/seconds ICA CCA ratio: 0.9 Left: CCA systolic:91.3 centimeters/second CCA diastolic: 16.2 centimeters/second ICA systolic: 74.8 centimeters/second ICA diastolic: 17.5 centimeters/second ICA CCA ratio: 0.8 Vertebral artery: Right: Antegrade left: Antegrade Once again, there is a mild to moderate amount of echogenic material seen along the carotid arterial alarcon. IMPRESSION: There has been no significant change compared to the prior exam. According to the SRU criteria there is less than 50% stenosis of the internal carotid artery bilaterally. <Electronically signed by Wm Cisse > 10/15/20 0961
== END ==
LOC: M RAD 08:02
PROVIDERS: ATTEND Physician Assistant
DX: I65.23 Occlusion and stenosis of bilateral carotid arteries (principal)

== ENCOUNTER → 2020-12-05 | Outpatient (CLI) | payer MEDICARE ==
[~2020-12-05] MED LIST changes: +GABA-283 PO; -GABA-845 PO; +OMEP40CA4 PO; -OMEP40CA97 PO
--- NOTE | 2020-12-11 01:19 | ECWPNPC ---
PATIENT NAME: GERARDO ELLSWORTH : 1935 GENDER: FEMALE VISIT DATE: 12/05/2020 DISCHARGE DATE: 12/05/20 1146 VISIT LOCKED DATE TIME: PHYSICIAN: NARCISO MILLER PHYSICIAN PAGER NO: ACTIVE RESOURCE: NARCISO MILLER REASON FOR APPOINTMENT 1. BACK HISTORY OF PRESENT ILLNESS GENERAL: HERE FOR FOLLOW-UP OF CHRONIC LOW BACK PAIN. OVERALL DOING PRETTY GOOD. HAS EPISODES OF INCREASES IN PAIN BUT HAS MORE GOOD DAYS THAN BAD DAYS AT THIS POINT IN TIME. HAS RESPONDED WELL TO TRIGGER POINT INJECTIONS IN THE PAST. NO RECENT MRI IMAGING OF THE LUMBOSACRAL SPINE. -. FALL RISK SCREENING: SCREENING : NO FALLS REPORTED IN THE LAST YEAR. PAIN SCREENING: PATIENT HAS A COMPLAINT OF ACUTE OR CHRONIC PAIN :YES LOCATION OF PAIN:LOW BACK INTENSITY OF PAIN (SCALE OF 1 TO 10):7 WHAT DOES YOUR PAIN FEEL LIKE:THROBBING DURATION:INTERMITTENT PAIN IS INCREASED BY:ACTIVITIES, PROLONGED STANDING PAIN IS DECREASED BY: HEAT NURSING NOTE: PT SAW [employer] 09/26/20, SHE SAW PCP 11/22/20, BOTH PROVIDERS PRESCRIBE FOR HER. TODAY, B/P IS ELEVATED, PT DENIES CHEST PAIN OR SOB, PT STATES SHE TOOK HER B/P MEDS THIS AM. Yu MARTIN MOWER SHARPENER. PAIN CENTER INTAKE QUESTIONS: DO YOU HAVE A HISTORY OF MRSA? :NO DO YOU TAKE A BLOOD THINNERS? :NO DO YOU HAVE ANY BLEEDING DISORDERS? :NO ANY NEW NUMBNESS OR WEAKNESS IN YOUR LEGS OR ARMS? :YES HANDS GET NUMB SOMETIMES ANY PACEMAKER,DEFIBRILLATOR, OR DORSAL COLUMN STIMULATOR? :NO DO YOU HAVE ANY RASHES OR OPEN SORES? :NO ARE YOU ALLERGIC TO IV DYE? :NO ARE YOU DIABETIC? :YES ANY NEW PROBLEMS WITH YOUR MEDICATIONS? :NO HAVE YOU RECEIVED A VACCINE IN THE PAST 30 DAYS? :NO DO YOU PLAN TO RECEIVE A VACCINE IN THE NEXT 21 DAYS? :NO DO YOU NEED ANY PRESCRIPTION? :NO DO YOU TAKE ANY IMMUNOSUPPRESSIVE MEDICATIONS? :NO DO YOU HAVE ANY KIDNEY OR LIVER DISEASE? :YES CIRRHOSIS OF LIVER IS THERE A CHANCE YOU COULD BE ? :NO ARE YOU BREAST FEEDING? :NO CURRENT MEDICATIONS TAKING TYLENOL EXTRA STRENGTH 500 MG TABLET 1-2 TABLETS NEEDED ORALLY TID TAKING IRON (FERROUS GLUCONATE) 256 (28 FE) MG TABLET 1 TABLET ORALLY BID TAKING BLOOD GLUCOSE TEST - STRIP DIRECTED IN VITRO THREE TIMES DAILY TAKING LANCETS MISC. - MISCELLANEOUS DIRECTED THREE TIMES DAILY TAKING HYDROCORTISONE 2.5 % CREAM 1 APPLICATION TO AFFECTED AREA EXTERNALLY TWICE A DAY TO RASH ON FACE, NOTES: MORE THAN 2 DAYS AGO TAKING LACTULOSE 10 GM/15ML SOLUTION 15 ML ORALLY TWICE DAILY TAKING VITAMIN E 400 UNIT CAPSULE 1 CAPSULE ORALLY ONCE A DAY TAKING GLUCOMETER DIRECTED DAILY TAKING PROAIR HFA 108 (90 BASE) MCG/ACT AEROSOL SOLUTION 2 PUFFS NEEDED INHALATION EVERY 4 HRS TAKING ONETOUCH VERIO - STRIP USE DIRECTED TAKING ASPIR-81 81 MG TABLET DELAYED RELEASE 1 TABLET ORALLY ONCE A DAY TAKING OMEPRAZOLE 40 MG CAPSULE DELAYED RELEASE TAKE ONE CAPSULE BY MOUTH EVERY DAY TAKING LANTUS SOLO STAR PEN NEEDLES STANDARD .. 55 UNITS INTRADERMALLY DAILY TAKING VESICARE 10 MG TABLET 1 TABLET ORALLY ONCE A DAY TAKING GABAPENTIN 300 MG CAPSULE 1 CAPSULE ORALLY TID TAKING PRAVASTATIN SODIUM 10 MG TABLET 1 TABLET ORALLY ONCE A DAY TAKING CARVEDILOL 12.5 MG TABLET TAKE ONE TABLET BY MOUTH TWICE A DAY TAKING LISINOPRIL 40 MG TABLET 1 TABLET ORALLY ONCE A DAY TAKING FUROSEMIDE 40 MG TABLET 1 TABLET ORALLY ONCE A DAY TAKING METFORMIN HCL 1000 MG TABLET TAKE 1 TABLET TWICE A DAY WITH MEALS NOT-TAKING FISH OIL 1000 MG CAPSULE 2 CAPSULE ORALLY ONCE A DAY NOT-TAKING LANTUS SOLOSTAR 100 UNIT/ML SOLUTION PEN-INJECTOR INJECT 55 UNITS SUBCUTANEOUSLY EVERY EVENING MEDICATION LIST REVIEWED AND RECONCILED WITH THE PATIENT PAST MEDICAL HISTORY HYPERTENSION TYPE II DIABETES ARTHRITIS CHF 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 LOW BACK PAIN ALLERGIES PENICILLIN (FOR ALLERGIES USE ONLY): RASH - ALLERGY BACTRIM DS: JOINT PAIN - ALLERGY SOCIAL HISTORY GENERAL: TOBACCO USE ARE YOU A:FORMER SMOKER HOW LONG HAS IT BEEN SINCE YOU LAST SMOKED?> 10 YEARS VAPORNO E-CIGARETTENO LATEX QUESTIONNAIRE LATEX ALLERGY : HAVE YOU EVER DEVELOPED ANY TYPE OF REACTION AFTER HANDLING LATEX PRODUCTS SUCH RUBBER GLOVES, CONDOMS, DIAPHRAGMS, BALLOONS, SOCKS, OR UNDERWEAR?NO LATEX ALLERGY : HAVE YOU EVER DEVELOPED ANY TYPE OF REACTION DURING OR AFTER DENTAL APPOINTMENT, VAGINAL/RECTAL EXAMINATION, SURGICAL PROCEDURE, OR ANY OTHER EXPOSURE?NO DATE ASKED : 07/14/2019 LATEX RISK : HAVE YOU EVER HAD ANY DIFFICULTY BREATHING OR HIVES AFTER EATING OR HANDLING ANY FRUITS, OR VEGETABLES; SUCH KIWI, BANANAS, STONE FRUITS, OR CHESTNUTSNO LATEX RISK : DO YOU HAVE A PREVIOUS PERSONAL HISTORY OF MORE THAN NINE SURGERIES, SPINA BIFIDA, OR REPEATED CATHERIZATIONS? NO LATEX RISK : ARE YOU FREQUENTLY EXPOSED TO LATEX PRODUCTS IN YOUR OCCUPATION?NO BMI CARE GOAL FOLLOW-UP ABOVE NORMAL BMI FOLLOW-UPDIETARY MANAGEMENT EDUCATION, GUIDANCE, AND COUNSELING ALCOHOL SCREENING DID YOU HAVE A DRINK CONTAINING ALCOHOL IN THE PAST YEAR?NO POINTS0 INTERPRETATIONNEGATIVE RECREATIONAL DRUG USE DRUG USE?NO CAFFEINE CAFFEINE USE?NO SEXUAL HX HAD SEX IN THE LAST 12 MONTHS (VAGINAL, ORAL, OR ANAL)?NO HAVE YOU EVER HAD AN STD?NO HIV / HEP-C SCREENING HIV TEST OFFERED TO PATIENT:NO NOT HEP-C TEST OFFERED TO PATIENT:NO BORN 1936 [id number] [place]. EDUCATION LEVEL OF EDUCATION:HIGH SCHOOL LEARNING BARRIERS / SPECIAL NEEDS CHANGE FROM LAST VISIT?NO 09/25/2020 BARRIERS TO LEARNING?NO HEARING IMPAIRED?NO VISION IMPAIRED?YES COGNITIVELY IMPAIRED?NO :CORRECTIVE LENSES READINESS TO LEARN?YES LEARNING PREFERENCES?NO LEARNING CAPABILITIES PRESENT?YES EMOTIONAL BARRIERS?NO SPECIAL DEVICES?NO EDGE BANDER HAND NEEDED?NO NO DOMESTIC VIOLENCE DO YOU FEEL SAFE IN YOUR ENVIRONMENT?YES OCCUPATION: RETIRED. DIET: REGULAR. EXERCISE: NO REGULAR EXERCISE. MARITAL STATUS: . OTHERS AT HOME: NONE. PATIENT DESCRIBES PAIN :ACHING, IT COMES AND GOES FROM 0-10, WHAT LEVEL IS YOUR PAIN TODAY?2 PRECIPITATING FACTORS PROLONGED SITTING, OR PROLONGED STANDING ALLEVIATING FACTORS WALKING - PFS REFERRAL NEEDED?NO CLERGY REFERRAL NEEDED?NO PUBLIC HEALTH REFERRAL NEEDED?NO HAS THE PATIENT BEEN EDUCATED REGARDING HIS/HER PLAN OF CARE?YES HAS THE PATIENT BEEN EDUCATED REGARDING PAIN, THE RISK FOR PAIN, THE IMPORTANCE OF EFFECTIVE PAIN MANAGEMENT, AND THE PAIN ASSESSMENT PROCESS?YES ADVANCE DIRECTIVE ADVANCE DIRECTIVE DISCUSSED WITH PATIENT:YES YU TORRES (DAUGHTER) HCP IS IN [facility]. NO HISTORY OF EATING DISORDER. NO HISTORY OF PHYSICAL, SEXUAL ABUSE. WEARS SEAT BELTS. CURRENT WITH TETANUS. DID GET PNEUMONIA VACCINE. DOES GET FLU SHOTS. UP TO DATE WITH DENTAL AND EYE EXAMS. SEES [facility]. REVIEW OF SYSTEMS CONSTITUTIONAL: ANY RECENT FEVER NO . CHILLS NO . WEIGHT CHANGE OF UNKNOWN REASONS NO . GASTROENTEROLOGY: NEW UNEXPLAINABLE CHANGES IN BOWEL CONTROL NO . CONSTIPATION NO . GENITOURINARY: ANY NEW CHANGE IN BLADDER CONTROL? NO . NEUROLOGY: NEW ONSET DIZZINESS OR NEUROLOGICAL CHANGES NOT MENTIONED NO . NEW NUMBNESS OR PAIN PATTERNS NOT MENTIONED AND PERTINENT TO TODAY'S VISIT NO . CARDIOLOGY: NEW CHEST PRESSURE NO . PATIENT DENIES NO . RESPIRATORY: UNEXPLAINABLE COUGH NO . NEW SHORTNESS OF BREATH NO . VITAL SIGNS WT 214.8 LBS, HT 63 IN, BMI 38.05 INDEX, BP 200/80 MM HG, REPEAT BP 200/84 MM HG, HR 67 /MIN, RR 18 /MIN, TEMP 97.0 F, OXYGEN SAT % 94%, NA INITIALS AW 1117LET NURSE KNOW ABOUT BPREPEAT B/P WAS MANUAL, NARCISO IS AWARE. EM. EXAMINATION GENERAL EXAMINATION: GENERALAWAKE,ALERT ,PLEASANT . PSYCHAFFECT NORMAL . LUNGS:LUNG ALLAN ARE CLEAR TO AUSCULTATION BILATERALLY. GOOD MOVEMENT OF AIR . HEART:S1, S2 IN A REGULAR RATE AND RHYTHM. NO SIGNIFICANT MURMURS, RUBS OR GALLOPS NOTED . ASSESSMENTS LOW BACK PAIN - M54.5 (PRIMARY) OTHER CHRONIC PAIN - G89.29 MYALGIA, OTHER SITE - M79.18 TREATMENT LOW BACK PAIN [facility] MRI SPINE, L.S. WITHOUT [id number],NICOLE 12/05/2020 3:19:36 PM > NO AUTHORIZATION REQUIRED FOR MEDICARE COMPLETE NOTES: ADVISED PATIENT TO DO HOME BLOOD PRESSURE MONITORING AND CONTACT PRIMARY CARE WITH RESULTS. OTHER CHRONIC PAIN PAIN PROCEDURE LOGDATE OF [id number]/03/21PROCEDURE:TRIGGER POINT INJECTIONS RIGHT LOW BACKAMOUNT OF PRE SEDATE0/0RESULT:SEVERAL MONTHS OF IMPROVEMENT PROCEDURE CODES FA211 ESTABILISHED PATIENT [facility] FACILITY CHARGE DISPOSITION & COMMUNICATION FOLLOW UP 2 MONTHS (REASON: REVIEW MRI L/S SPINE) ELECTRONICALLY SIGNED BY DAVIN FAIR ON 12/10/2020 AT 08:22 PM EDT DISCLAIMER : THIS IS A VISIT SUMMARY EXTRACTED FROM THE [facility] CHART. IT IS NOT A COPY OF THE [facility] PROGRESS NOTE. DAVID
== END ==
LOC: M PAIN 11:15
PROVIDERS: ATTEND Nurse Practitioner Family
DX: M54.5 Low back pain (principal); M79.18 Myalgia, other site; E11.9 Type 2 diabetes mellitus without complications; K21.9 Gastro-esophageal reflux disease without esophagitis; J45.909 Unspecified asthma, uncomplicated; Z87.891 Personal history of nicotine dependence; Z88.0 Allergy status to penicillin; Z88.1 Allergy status to other antibiotic agents; Z79.4 Long term (current) use of insulin; Z79.82 Long term (current) use of aspirin; Z79.899 Other long term (current) drug therapy

== ENCOUNTER → 2020-12-31 | Outpatient (CLI) | payer MEDICARE ==
[~2020-12-31] MED LIST changes: -MOME50SP; +NASO50SP3
== END ==
LOC: M RAD 13:40
PROVIDERS: ATTEND Nurse Practitioner Family
DX: M54.5 Low back pain (principal)

== ENCOUNTER → 2021-01-21 | Outpatient (CLI) | payer MEDICARE ==
[~2021-01-21] MED LIST changes: +MOME50SP; -NASO50SP3
--- NOTE | 2021-01-22 02:50 | ECWPNPC ---
PATIENT NAME: GERARDO ELLSWORTH : 1935 GENDER: FEMALE VISIT DATE: 01/21/2021 DISCHARGE DATE: 01/21/21 1135 VISIT LOCKED DATE TIME: PHYSICIAN: NARCISO MILLER PHYSICIAN PAGER NO: ACTIVE RESOURCE: NARCISO MILLER REASON FOR APPOINTMENT 1. MRI REVIEW HISTORY OF PRESENT ILLNESS DEPRESSION SCREENING: PHQ-2 (2015 EDITION) LITTLE INTEREST OR PLEASURE IN DOING THINGS?NOT AT ALL FEELING DOWN, DEPRESSED, OR HOPELESS?NOT AT ALL TOTAL SCORE0 GENERAL: HERE FOR FOLLOW-UP OF CHRONIC LOW BACK PAIN. MRI OF THE LS SPINE DONE ON 12/31/2020 IS REVIEWED. 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 PATIENT COMPLAINS OF LOW BACK PAIN RIGHT GREATER THAN LEFT. PAIN RADIATES INTO HER LEGS BILATERALLY WITH AMBULATION. HAS RESPONDED WELL TO TRIGGER POINT INJECTIONS IN THE PAST. DISCUSSED TREATMENT PLAN. -. FALL RISK SCREENING: SCREENING : NO FALLS REPORTED IN THE LAST YEAR. PAIN SCREENING: PATIENT HAS A COMPLAINT OF ACUTE OR CHRONIC PAIN :YES LOCATION OF PAIN:LOW BACK INTENSITY OF PAIN (SCALE OF 1 TO 10):7 WHAT DOES YOUR PAIN FEEL LIKE:ACHING DURATION:ONLY WITH SPECIFIC ACTIVITIES PAIN IS INCREASED BY:ACTIVITIES, PROLONGED STANDING PAIN IS DECREASED BY:USE OF PAIN MEDICATIONS, SITTING NURSING NOTE: -. PAIN CENTER INTAKE QUESTIONS: DO YOU HAVE A HISTORY OF MRSA? :NO DO YOU TAKE A BLOOD THINNERS? :NO ASPIR-81 81 MG DO YOU HAVE ANY BLEEDING DISORDERS? :NO ANY NEW NUMBNESS OR WEAKNESS IN YOUR LEGS OR ARMS? :YES HANDS GET NUMB SOMETIMES ANY PACEMAKER,DEFIBRILLATOR, OR DORSAL COLUMN STIMULATOR? :NO DO YOU HAVE ANY RASHES OR OPEN SORES? :NO ARE YOU ALLERGIC TO IV DYE? :NO ARE YOU DIABETIC? :YES ANY NEW PROBLEMS WITH YOUR MEDICATIONS? :NO HAVE YOU RECEIVED A VACCINE IN THE PAST 30 DAYS? :NO DO YOU PLAN TO RECEIVE A VACCINE IN THE NEXT 21 DAYS? :NO DO YOU NEED ANY PRESCRIPTION? :NO DO YOU TAKE ANY IMMUNOSUPPRESSIVE MEDICATIONS? :NO DO YOU HAVE ANY KIDNEY OR LIVER DISEASE? :YES CIRRHOSIS OF LIVER IS THERE A CHANCE YOU COULD BE ? :NO ARE YOU BREAST FEEDING? :NO CURRENT MEDICATIONS TAKING XIFAXAN 550 MG TABLET 1 TABLET ORALLY TWICE A DAY TAKING TYLENOL EXTRA STRENGTH 500 MG TABLET 1-2 TABLETS NEEDED ORALLY TID TAKING IRON (FERROUS GLUCONATE) 256 (28 FE) MG TABLET 1 TABLET ORALLY BID TAKING BLOOD GLUCOSE TEST - STRIP DIRECTED IN VITRO THREE TIMES DAILY TAKING HYDROCORTISONE 2.5 % CREAM 1 APPLICATION TO AFFECTED AREA EXTERNALLY TWICE A DAY TO RASH ON FACE, NOTES: MORE THAN 2 DAYS AGO TAKING LACTULOSE 10 GM/15ML SOLUTION 15 ML ORALLY TWICE DAILY TAKING VITAMIN E 400 UNIT CAPSULE 1 CAPSULE ORALLY ONCE A DAY TAKING GLUCOMETER DIRECTED DAILY TAKING PROAIR HFA 108 (90 BASE) MCG/ACT AEROSOL SOLUTION 2 PUFFS NEEDED INHALATION EVERY 4 HRS TAKING ASPIR-81 81 MG TABLET DELAYED RELEASE 1 TABLET ORALLY ONCE A DAY TAKING OMEPRAZOLE 40 MG CAPSULE DELAYED RELEASE TAKE ONE CAPSULE BY MOUTH EVERY DAY TAKING LANTUS SOLO STAR PEN NEEDLES STANDARD .. 55 UNITS INTRADERMALLY DAILY TAKING VESICARE 10 MG TABLET 1 TABLET ORALLY ONCE A DAY TAKING GABAPENTIN 300 MG CAPSULE 1 CAPSULE ORALLY TID TAKING PRAVASTATIN SODIUM 10 MG TABLET 1 TABLET ORALLY ONCE A DAY TAKING CARVEDILOL 12.5 MG TABLET TAKE ONE TABLET BY MOUTH TWICE A DAY TAKING FUROSEMIDE 40 MG TABLET 1 TABLET ORALLY ONCE A DAY TAKING METFORMIN HCL 1000 MG TABLET TAKE 1 TABLET TWICE A DAY WITH MEALS TAKING LISINOPRIL 40 MG TABLET 1 TABLET ORALLY ONCE A DAY TAKING LANCETS MISC. 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 LOW BACK PAIN ALLERGIES PENICILLIN (FOR ALLERGIES USE ONLY): RASH - ALLERGY BACTRIM DS: JOINT PAIN - ALLERGY SOCIAL HISTORY GENERAL: TOBACCO USE ARE YOU A:FORMER SMOKER HOW LONG HAS IT BEEN SINCE YOU LAST SMOKED?> 10 YEARS VAPORNO E-CIGARETTENO LATEX QUESTIONNAIRE LATEX ALLERGY : HAVE YOU EVER DEVELOPED ANY TYPE OF REACTION AFTER HANDLING LATEX PRODUCTS SUCH RUBBER GLOVES, CONDOMS, DIAPHRAGMS, BALLOONS, SOCKS, OR UNDERWEAR?NO LATEX ALLERGY : HAVE YOU EVER DEVELOPED ANY TYPE OF REACTION DURING OR AFTER DENTAL APPOINTMENT, VAGINAL/RECTAL EXAMINATION, SURGICAL PROCEDURE, OR ANY OTHER EXPOSURE?NO LATEX RISK : HAVE YOU EVER HAD ANY DIFFICULTY BREATHING OR HIVES AFTER EATING OR HANDLING ANY FRUITS, OR VEGETABLES; SUCH KIWI, BANANAS, STONE FRUITS, OR CHESTNUTSNO LATEX RISK : DO YOU HAVE A PREVIOUS PERSONAL HISTORY OF MORE THAN NINE SURGERIES, SPINA BIFIDA, OR REPEATED CATHERIZATIONS? NO LATEX RISK : ARE YOU FREQUENTLY EXPOSED TO LATEX PRODUCTS IN YOUR OCCUPATION?NO DATE ASKED : 01/21/2021 ALCOHOL USE: NO. BMI CARE GOAL FOLLOW-UP ABOVE NORMAL BMI FOLLOW-UPDIETARY MANAGEMENT EDUCATION, GUIDANCE, AND COUNSELING ALCOHOL SCREENING DID YOU HAVE A DRINK CONTAINING ALCOHOL IN THE PAST YEAR?NO POINTS0 INTERPRETATIONNEGATIVE RECREATIONAL DRUG USE DRUG USE?NO CAFFEINE CAFFEINE USE?NO SEXUAL HX HAD SEX IN THE LAST 12 MONTHS (VAGINAL, ORAL, OR ANAL)?NO HAVE YOU EVER HAD AN STD?NO HIV / HEP-C SCREENING HIV TEST OFFERED TO PATIENT:NO NOT HEP-C TEST OFFERED TO PATIENT:NO BORN [id number] ESTON[employer]. EDUCATION LEVEL OF EDUCATION:HIGH SCHOOL LEARNING BARRIERS / SPECIAL NEEDS CHANGE FROM LAST VISIT?NO BARRIERS TO LEARNING?NO HEARING IMPAIRED?NO VISION IMPAIRED?YES :CORRECTIVE LENSES COGNITIVELY IMPAIRED?YES READINESS TO LEARN?YES LEARNING PREFERENCES?NO LEARNING CAPABILITIES PRESENT?YES EMOTIONAL BARRIERS?NO SPECIAL DEVICES?YES :CANE, WALKER LABEL STITCHER NEEDED?NO NO DOMESTIC VIOLENCE DO YOU FEEL SAFE IN YOUR ENVIRONMENT?YES OCCUPATION: RETIRED. DIET: REGULAR. EXERCISE: NO REGULAR EXERCISE. MARITAL STATUS: . OTHERS AT HOME: NONE. PATIENT DESCRIBES PAIN :ACHING, IT COMES AND GOES FROM 0-10, WHAT LEVEL IS YOUR PAIN TODAY?2 PRECIPITATING FACTORS PROLONGED SITTING, OR PROLONGED STANDING ALLEVIATING FACTORS WALKING - PFS REFERRAL NEEDED?NO CLERGY REFERRAL NEEDED?NO PUBLIC HEALTH REFERRAL NEEDED?NO HAS THE PATIENT BEEN EDUCATED REGARDING HIS/HER PLAN OF CARE?YES HAS THE PATIENT BEEN EDUCATED REGARDING PAIN, THE RISK FOR PAIN, THE IMPORTANCE OF EFFECTIVE PAIN MANAGEMENT, AND THE PAIN ASSESSMENT PROCESS?YES ADVANCE DIRECTIVE ADVANCE DIRECTIVE DISCUSSED WITH PATIENT:YES YU TORRES (DAUGHTER) HCP IS IN [facility]. NO HISTORY OF EATING DISORDER. NO HISTORY OF PHYSICAL, SEXUAL ABUSE. WEARS SEAT BELTS. CURRENT WITH TETANUS. DID GET PNEUMONIA VACCINE. DOES GET FLU SHOTS. UP TO DATE WITH DENTAL AND EYE EXAMS. SEES [facility] FOR [facility]. REVIEW OF SYSTEMS CONSTITUTIONAL: ANY RECENT FEVER NO . CHILLS NO . WEIGHT CHANGE OF UNKNOWN REASONS NO . GASTROENTEROLOGY: NEW UNEXPLAINABLE CHANGES IN BOWEL CONTROL NO . CONSTIPATION NO . GENITOURINARY: ANY NEW CHANGE IN BLADDER CONTROL? NO . NEUROLOGY: NEW ONSET DIZZINESS OR NEUROLOGICAL CHANGES NOT MENTIONED NO . NEW NUMBNESS OR PAIN PATTERNS NOT MENTIONED AND PERTINENT TO TODAY'S VISIT NO . CARDIOLOGY: NEW CHEST PRESSURE NO . PATIENT DENIES NO . RESPIRATORY: UNEXPLAINABLE COUGH NO . NEW SHORTNESS OF BREATH NO . VITAL SIGNS WT 214 LBS, WT-KG 97.07 KG, HT 63 IN, BMI 37.90 INDEX, BP 174/71 MM HG, HR 58 /MIN, RR 18 /MIN, TEMP 97.2 F, OXYGEN SAT % 97%, BLOOD GLUCOSE LEVEL 85 THIS AM, SAFE IN ENV? (Y/N) YES, NA INITIALS SC 10:57T.LALITA VALENZUELA, PATIENT STATED THAT SHE IS NOT 100% SURE IF SHE TOOK HER BLOOD PRESSURE MEDICATION. EXAMINATION GENERAL EXAMINATION: GENERAL AWAKE,ALERT ,PLEAASANT . PSYCH AFFECT NORMAL . LUNGS: LUNG ALLAN ARE CLEAR TO AUSCULTATION BILATERALLY. GOOD MOVEMENT OF AIR . HEART: S1, S2 IN A REGULAR RATE AND RHYTHM. NO SIGNIFICANT MURMURS, RUBS OR GALLOPS NOTED . MUSCULOSKELETAL: MUSCLE STRENGTH TESTING 4/5 BILATERAL LOWER EXTREMITIES. LUMBAR:TRIGGER POINTS:, ELICITED WITH PALPATION OVER BILATERAL RIGHT >LEFT LUMBAR PARAVERTEBRAL MUSCLES AND RANGE OF JOINT MOTION OF THE SPINE AGGRAVATES THIS PAIN.. DIAGNOSTIC TESTS REVIEWEDMRI L/S SPINE-12/31/20. ASSESSMENTS LOW BACK PAIN - M54.5 (PRIMARY) MYALGIA, OTHER SITE - M79.18 TREATMENT LOW BACK PAIN NOTES: TRIGGER POINT INJECTIONS BILATERAL LOW BACK REVIEWED PRE PROCEDURE INFORMATON, PATIENT VERBALIZED UNDERSTANDING KIM VALENZUELA. PROCEDURE CODES FA211 ESTABILISHED PATIENT [facility] FACILITY CHARGE DISPOSITION & COMMUNICATION FOLLOW UP POST (REASON: TRIGGER POINT INJECTIONS BILATERAL LOW BACK) ELECTRONICALLY SIGNED BY DAVIN FAIR ON 01/21/2021 AT 04:00 PM EDT DISCLAIMER : THIS IS A VISIT SUMMARY EXTRACTED FROM THE [employer] CHART. IT IS NOT A COPY OF THE [employer] PROGRESS NOTE. DAVID
== END ==
LOC: M PAIN 10:45
PROVIDERS: ATTEND Nurse Practitioner Family
DX: M54.5 Low back pain (principal); M79.18 Myalgia, other site; E11.9 Type 2 diabetes mellitus without complications; K21.9 Gastro-esophageal reflux disease without esophagitis; J45.909 Unspecified asthma, uncomplicated; Z87.891 Personal history of nicotine dependence; Z88.0 Allergy status to penicillin; Z88.1 Allergy status to other antibiotic agents; Z79.4 Long term (current) use of insulin; Z79.82 Long term (current) use of aspirin; Z79.899 Other long term (current) drug therapy

== ENCOUNTER → 2021-02-07 | Outpatient (CLI) | payer MEDICARE | LOC: M LABSMTC 09:44 | PROVIDERS: ATTEND Anesthesiology | DX: Z11.52 Encounter for screening for COVID-19 (principal) ==

== ENCOUNTER → 2021-02-12 | Outpatient (CLI) | payer MEDICARE ==
[~2021-02-12] MED LIST changes: +BUPIVACAINE HCL 0.25% 10ML VIAL As Ordered ONE; +BUPIVACAINE HCL 0.25% 30ML VIAL As Ordered ONE; +TRIAMCINOLONE ACETONIDE SUSP 40 MG/ML VIAL (J3301) As Ordered ONE
== END ==
LOC: M PAIN 14:00
PROVIDERS: ATTEND Anesthesiology
DX: M79.18 Myalgia, other site (principal); E11.9 Type 2 diabetes mellitus without complications; K21.9 Gastro-esophageal reflux disease without esophagitis; J45.909 Unspecified asthma, uncomplicated; Z87.891 Personal history of nicotine dependence; Z88.0 Allergy status to penicillin; Z88.1 Allergy status to other antibiotic agents; Z79.4 Long term (current) use of insulin; Z79.82 Long term (current) use of aspirin; Z79.899 Other long term (current) drug therapy
CPT/HCPCS: 20552; J3301

== ENCOUNTER → 2021-02-21 | Outpatient (REF) | payer MEDICARE ==
[~2021-02-21] MED LIST changes: -BUPIVACAINE HCL 0.25% 10ML VIAL As Ordered ONE; -BUPIVACAINE HCL 0.25% 30ML VIAL As Ordered ONE; -TRIAMCINOLONE ACETONIDE SUSP 40 MG/ML VIAL (J3301) As Ordered ONE
[2021-02-21 16:33] LABS: BASO # 0.1 10^3/uL (0.0-0.2); BASO % 0.9 % (0.0-1.0); EOS # 0.1 10^3/uL (0.0-0.5); EOS % 1.5 % (0.0-3.0); HEMATOCRIT 36.6 % (36.0-47.0); HEMOGLOBIN 11.7 g/dl (12.0-15.5); LYMPH # 1.8 10^3/uL (1.5-5.0); LYMPH % 26.4 % (24.0-44.0); MEAN CORPUSCULAR HEMOGLOBIN 30.6 pg (27.0-33.0); MEAN CORPUSCULAR VOLUME 95.8 fl (80.0-96.0); MONO # 0.7 10^3/uL (0.0-0.8); NEUTROPHILS # 4.2 10^3/uL (1.5-8.5); NEUTROPHILS % 60.9 % (36.0-66.0); PLATELET COUNT, AUTOMATED 162 10^3/uL (150-450); RED BLOOD COUNT 3.82 10^6/uL (4.00-5.40); WHITE BLOOD COUNT 6.8 10^3/uL (4.0-10.0)
[2021-02-21 16:52] LABS: ALBUMIN 3.6 GM/DL (3.2-5.2); BILIRUBIN,TOTAL 0.5 MG/DL (0.2-1.0); CALCIUM LEVEL 9.2 MG/DL (8.8-10.2); CHOLESTEROL RISK RATIO 2.706 (<5); CREATININE FOR GFR 1.23 MG/DL (0.55-1.30); GLOMERULAR FILTRATION RATE 44.3 (>32); POTASSIUM SERUM 4.7 MEQ/L (3.5-5.1); TOTAL PROTEIN 6.9 GM/DL (6.4-8.2)
[2021-02-21 17:00] LABS: TOTAL 25(OH) VITAMIN D 20.7 NG/ML (30.0-100.0)
== END ==
LOC: M SFHCCAPE 07:25
PROVIDERS: ATTEND Physician Assistant
DX: E11.8 Type 2 diabetes mellitus with unspecified complications (principal); Z79.899 Other long term (current) drug therapy

== ENCOUNTER → 2021-03-21 | Outpatient (CLI) | payer MEDICARE ==
--- NOTE | 2021-03-21 11:02 | PFTRPT ---
Site: [facility], [address] [place] [address], [id number] ID: [id number] Name: GERARDO ELLSWORTH Visit Date: 03/21/2021 Second ID: [id number] Referring Doctor: ARIADNA STEPHENS Reviewing Doctor: Pino Bah MD Shop Tailor Apprentice: Michelle LOZOYA RRT Age: 85 : 1935 Sex: Female Race: Height: 63.00 Inches Weight: 212.00 Lbs BSA: 1.98 Order IDs: [id number] Requested Test(s): <RESP-PFT.PFT B/A> Diagnosis: R05 test meet the ATS standards for acceptability and repeatability. Pt was given two puffs of albuterol for post bronchodilator. Review Status: Not Reviewed Pre-Bronch Post-Bronch Pred Actual %Pred Actual %Chng SPIROMETRY FVC (L) 2.29 1.63 71 1.77 9 FEV1 (L) 1.69 1.32 78 1.44 9 FEV1/FVC (%) 73 81 111 81 FEF 25% (L/sec) 4.29 3.05 71 3.38 11 FEF 50% (L/sec) 2.92 1.55 53 1.84 18 FEF 75% (L/sec) 0.65 0.51 77 0.86 70 FEF 25-75% (L/sec) 1.12 1.25 111 1.65 32 FEF Max (L/sec) 4.19 3.55 84 4.18 17 FIVC (L) 1.60 1.76 9 FIF 50% (L/sec) 3.21 2.56 79 3.21 25 FIF Max (L/sec) 2.57 3.22 25 MVV (L/min) 76 41 53 Expiratory Time (sec) 6.83 7.26 6 Back Extrap Vol (L) 0.06 0.05 -16 Time To FEFmax (sec) 0.090 0.072 -19 LUNG VOLUMES SVC (L) 2.47 1.95 78 IC (L) 2.06 1.65 80 ERV (L) 0.41 0.30 73 TGV (L) 2.84 3.03 106 RV (Pleth) (L) 2.43 2.73 112 TLC (Pleth) (L) 4.90 4.68 95 RV/TLC (Pleth) (%) 49 58 119 DIFFUSION DLCOunc (ml/min/mmHg) 18.50 14.86 80 DLCOcor (ml/min/mmHg) 18.50 15.51 83 DL/VA (ml/min/mmHg/L) 3.78 4.23 111 VA (L) 4.90 3.66 74 BHT (sec) 10.07 IVC (L) 1.75 TLC (SB) (L) 3.81 AIRWAYS RESISTANCE Raw (cmH2O/L/s) 1.86 2.09 112 Gaw (L/s/cmH2O) 1.03 0.48 46 sRaw (cmH2O*s) 4.76 6.80 142 sGaw (1/cmH2O*s) 0.20 0.15 73 BLOOD GASES Hgb (gm/dL) 12.1
== END ==
LOC: M CARPUL 10:08
PROVIDERS: ATTEND Nurse Practitioner Family
DX: R05 Cough (principal)

== ENCOUNTER → 2021-03-21 | Outpatient (CLI) | payer MEDICARE ==
--- NOTE | 2021-03-21 10:56 | REP ---
INDICATION: DYSPNEA, UNSPECIFIED-PFT FIRST. COMPARISON: 05/14/2020 TECHNIQUE: PA and lateral FINDINGS: A subtle karime density may have developed in the right upper lobe. The cardiomediastinal silhouette is stable. The heart is not enlarged. The pleural angles are sharp the osseous structures are stable and intact. IMPRESSION: Possible new right upper lobe density. Contrast-enhanced CT is recommended. <Electronically signed by Wm Cisse > 03/21/21 [id number]
== END ==
LOC: M RAD 10:16
PROVIDERS: ATTEND Nurse Practitioner Family
DX: R06.00 Dyspnea, unspecified (principal); R91.8 Other nonspecific abnormal finding of lung field

== ENCOUNTER → 2021-03-28 | Outpatient (CLI) | payer MEDICARE ==
--- NOTE | 2021-03-28 10:34 | REP ---
INDICATION: CIRRHOSIS OF LIVER UNSPECIFIED - LABS FIRST, RAD SECOND COMPARISON: 10/15/2020 TECHNIQUE: Real time herrera scale ultrasound examination using curved array transducer. FINDINGS: Liver demonstrates coarsened echotexture and nodular contour consistent with cirrhosis. A vague 1.4 x 1.7 x 1.7 cm hyperechoic mass at the inferior pole of the right hepatic lobe is suspected. Pancreas is incompletely evaluated due to interposed bowel gas. The gallbladder is normal and without gallstones, wall thickening, or pericholecystic fluid. No biliary ductal dilatation is appreciated and the common bile duct measures 2.8 mm diameter. Right kidney is normal in reniform shape without hydronephrosis and measures 13.0 x 5.6 x 4.3 cm cm. No ascites in the visualized right upper quadrant. IMPRESSION: Cirrhosis and possible 1.7 cm right hepatic mass. Consider pre and postcontrast CT of the abdomen for further investigation. <Electronically signed by Kishan Delacruz > 03/28/21 [id number]
[2021-03-28 11:17] LABS: BASO # 0.1 10^3/uL (0.0-0.2); BASO % 0.9 % (0.0-1.0); EOS # 0.2 10^3/uL (0.0-0.5); EOS % 2.5 % (0.0-3.0); HEMATOCRIT 36.5 % (36.0-47.0); HEMOGLOBIN 11.6 g/dl (12.0-15.5); LYMPH % 28.8 % (24.0-44.0); MEAN CORPUSCULAR HEMOGLOBIN 30.7 pg (27.0-33.0); MEAN CORPUSCULAR HGB CONC 31.8 g/dl (32.0-36.5); MEAN CORPUSCULAR VOLUME 96.6 fl (80.0-96.0); MONO # 0.7 10^3/uL (0.0-0.8); MONO % 10.3 % (2.0-8.0); NEUTROPHILS # 3.9 10^3/uL (1.5-8.5); NEUTROPHILS % 57.2 % (36.0-66.0); PLATELET COUNT, AUTOMATED 175 10^3/uL (150-450); RED BLOOD COUNT 3.78 10^6/uL (4.00-5.40); WHITE BLOOD COUNT 6.8 10^3/uL (4.0-10.0)
[2021-03-28 11:25] LABS: ALBUMIN 3.6 GM/DL (3.2-5.2); BILIRUBIN,TOTAL 0.5 MG/DL (0.2-1.0); CALCIUM LEVEL 9.3 MG/DL (8.8-10.2); CREATININE FOR GFR 1.1 MG/DL (0.55-1.30); GLOMERULAR FILTRATION RATE 50.4 (>32); POTASSIUM SERUM 4.4 MEQ/L (3.5-5.1); TOTAL PROTEIN 7.1 GM/DL (6.4-8.2)
== END ==
LOC: M RAD 08:42
PROVIDERS: ATTEND Internal Medicine Gastroenterology
DX: K74.60 Unspecified cirrhosis of liver (principal); D50.9 Iron deficiency anemia, unspecified

== ENCOUNTER → 2021-04-17 | Outpatient (CLI) | payer MEDICARE | LOC: M PAIN 11:00 | PROVIDERS: ATTEND Anesthesiology | DX: M47.816 Spondylosis without myelopathy or radiculopathy, lumbar region (principal); G89.29 Other chronic pain; E11.9 Type 2 diabetes mellitus without complications; K21.9 Gastro-esophageal reflux disease without esophagitis; J45.909 Unspecified asthma, uncomplicated; Z87.891 Personal history of nicotine dependence; Z88.0 Allergy status to penicillin; Z88.1 Allergy status to other antibiotic agents; Z79.4 Long term (current) use of insulin; Z79.82 Long term (current) use of aspirin; Z79.899 Other long term (current) drug therapy ==

== ENCOUNTER → 2021-04-29 | Outpatient (CLI) | payer MEDICARE ==
[~2021-04-29] MED LIST changes: +GASTROGRAFIN SOLUTION 30ML (Q9963) ONE; +ISOVUE-370 76% 100ML VIAL ONE
--- NOTE | 2021-04-29 15:28 | REP ---
INDICATION: HEPATIC MASS. COMPARISON: Hepatic ultrasound 03/28/2021, 11/25/2019; CT 08/06/2016. TECHNIQUE: Oral Gastrografin mixture 10 mL in 290 mL of flavored water for 2 doses per our bowel contrast protocol. Pre contrast and then three-phase contrast scanning through the abdomen performed following bolus of 100 mL Isovue 370. Arterial and venous coronal and sagittal reconstructions are provided. FINDINGS: The lung bases show patchy nodular opacity in the medial segment right middle lobe. Please see the CT chest report this date for details. Some inferior lingular segment fibro atelectatic change at the anterior left lung base noted. Heart size unchanged left atrium mildly prominent. Atherosclerotic calcifications coronary arteries seen no pericardial thickening or effusion and no hiatal hernia. The liver is not enlarged with the left lobe is enlarged the entire liver has lobulated hepatic contour. With pre contrast imaging cannot see a definite liver lesion in the inferior aspect of the right hepatic lobe as noted on ultrasound 04/07/2021. However the arterial phase images as on image 60 to 62 showed a 13.8 mm hyperdense lesion with slightly hypodense lesion on venous phase and delayed images. It does not significantly deform the contour of the liver capsule at this site I do not see other lesions within the liver. It is visible in the same fashion on coronal and sagittal reconstructions in the arterial and venous phases. It is not visible on the CT of 08/06/2016. Gallbladder shows no calcified stone or mass. There is no ascites. I see no splenomegaly or focal splenic lesion. Pancreas, adrenal glands stomach were unremarkable kidneys show lobation but no hydronephrosis, mass, stone or hydroureter. No ureteral dilatation visible or stones in the proximal ureter. The aorta is without aneurysm no periaortic, other retroperitoneal or mesenteric pathologic sized lymphadenopathy. Stool and gas scattered in the colon without sign of colitis or diverticulitis. Small bowel loops unremarkable. No generalized ascites. Vacuum phenomena in the mid lower lumbar spine without destructive lesion or compression deformity seen. Visualized ribs intact. IMPRESSION: 1. There is a 13.8 cm right hepatic lobe hyperdense lesion on arterial phase imaging becoming hypodense on venous and delayed imaging in the inferior aspect right hepatic lobe precisely where visualized on recent hepatic ultrasound. It is not visible on the noncontrast imaging. Patient has longstanding cirrhosis but no gross hepatomegaly, ascites, splenomegaly or other acute finding. Malignant hepatic lesion is not excluded. Given her age, its small size, it is peripheral location and that it is lateral margin is well covered by a bowel loop, CB an exceedingly difficult transabdominal biopsy. That could be discussed with the interventional radiology service. No other new or significant interval finding. <Electronically signed by Eliazar Zavaleta > 04/29/21 [id number]
== END ==
LOC: M PLAIMG 12:03
PROVIDERS: ATTEND Internal Medicine Gastroenterology
DX: R93.89 Abnormal findings on diagnostic imaging of other specified body structures (principal); K74.60 Unspecified cirrhosis of liver; R91.8 Other nonspecific abnormal finding of lung field
CPT/HCPCS: 71250; 74170; Q9963; Q9967

== ENCOUNTER → 2021-04-29 | Outpatient (CLI) | payer MEDICARE ==
[~2021-04-29] MED LIST changes: -GASTROGRAFIN SOLUTION 30ML (Q9963) ONE; -ISOVUE-370 76% 100ML VIAL ONE
--- NOTE | 2021-04-29 14:18 | REP ---
INDICATION: ABNORMAL FINDING OF LUNG FIELD. COMPARISON: Chest x-ray 03/21/2021, 05/14/2020 TECHNIQUE: Noncontrast scanning through the chest with coronal and sagittal reconstructions provided. FINDINGS: The lung mott are well inflated. In the medial segment of the right middle lobe there is patchy nodular opacity with maximum diameter a 2.9 x 1.2 cm. This is actually lower in the chest than the subtle of finding on radiograph. A ground-glass nodule about 9 mm on the right paraspinal area image 38. I see no other significant right sided parenchymal or pleural finding. There is no pleural effusion. Some mild cylindrical bronchiectatic changes are noted. There is no calcified pleural plaque. Posteriorly in the left upper lobe on image 28 is a 10 mm nodule with irregular/spiculated margins. A 6 mm nodule is seen in the superior segment of the left lower lobe paraspinal region on image 44. A 5 mm nodule with irregular margins in the left lower lobe towards the superior segment on image 64. Another nodular irregular density seen in the posterior segment left upper lobe just anterior to the major fissure on image 47 up to 10 mm in combined diameter. The heart is not enlarged there is some calcification the mitral annulus and coronary arteries as well as scattered in the aorta without aneurysm. No pathologic sized mediastinal or hilar adenopathy. No pericardial thickening or effusion. No axillary or supraclavicular mass identified. Bone windows show some degenerative changes scattered throughout the thoracic spine. Sternum, manubrium, clavicles, visualized portions of the scapulae, the AC and glenohumeral joints all grossly intact with some degenerative changes but no destructive lesion. Ribs intact. Upper abdomen shows lobulated liver contour with enlarged left hepatic lobe pattern consistent with cirrhosis. No gross hepatomegaly. No gross splenomegaly, upper abdominal ascites or adrenal lesions. Gallbladder without calcified stone or mass visualized pancreas intact. Stomach unremarkable and without hiatal hernia. Upper poles kidneys intact IMPRESSION: 1. Multiple of small of parenchymal nodules with the largest a conglomerate nodular infiltrate 2.9 x 1.2 cm in the medial segment of the right middle lobe which is below the finding on the radiograph and not clearly definable radiographically. Other nodules cm and smaller are noted some with the smooth margins others with irregular spiculated margins. This is a probably suspicious examination category 4A and warrants consideration for a PET-CT and close follow-up. <Electronically signed by Eliazar Zavaleta > 04/29/21 [id number]
== END ==
LOC: M RAD 12:15
PROVIDERS: ATTEND Nurse Practitioner Family
DX: R91.8 Other nonspecific abnormal finding of lung field (principal)

== ENCOUNTER → 2021-05-02 | Outpatient (CLI) | payer MEDICARE ==
[2021-05-02 15:11] LABS: CALCIUM LEVEL 8.9 MG/DL (8.8-10.2); CREATININE FOR GFR 1.26 MG/DL (0.55-1.30); GLOMERULAR FILTRATION RATE 43.1 (>32); POTASSIUM SERUM 4.4 MEQ/L (3.5-5.1)
== END ==
LOC: M WUC 10:32
PROVIDERS: ATTEND Physician Assistant
DX: E11.8 Type 2 diabetes mellitus with unspecified complications (principal)

== ENCOUNTER → 2021-11-11 | Outpatient (REF) | payer MEDICARE ==
[~2021-11-11] MED LIST changes: -MOME50SP; +NASO50SP3
[2021-11-11 16:15] LABS: HEMATOCRIT 34.2 % (36.0-47.0); HEMOGLOBIN 10.8 g/dl (12.0-15.5); MEAN CORPUSCULAR HEMOGLOBIN 31.8 pg (27.0-33.0); MEAN CORPUSCULAR HGB CONC 31.6 g/dl (32.0-36.5); MEAN CORPUSCULAR VOLUME 100.6 fl (80.0-96.0); PLATELET COUNT, AUTOMATED 135 10^3/uL (150-450); WHITE BLOOD COUNT 6.2 10^3/uL (4.0-10.0)
[2021-11-11 16:22] LABS: ALBUMIN 3.4 GM/DL (3.2-5.2); BILIRUBIN,TOTAL 0.4 MG/DL (0.2-1.0); CREATININE FOR GFR 1.57 MG/DL (0.55-1.30); GLOMERULAR FILTRATION RATE 33.3 (>32); POTASSIUM SERUM 4.7 MEQ/L (3.5-5.1); TOTAL PROTEIN 6.9 GM/DL (6.4-8.2)
[2021-11-11 16:26] LABS: INR 0.98; PROTHROMBIN TIME 13.4 SECONDS (12.7-14.5)
== END ==
LOC: M LABDRWCV 15:36
DX: C22.0 Liver cell carcinoma (principal)

== ENCOUNTER → 2021-11-28 | Outpatient (REF) | payer MEDICARE ==
[2021-11-28 16:15] LABS: BASO # 0.1 10^3/uL (0.0-0.2); BASO % 0.7 % (0.0-1.0); EOS # 0.2 10^3/uL (0.0-0.5); EOS % 2.5 % (0.0-3.0); HEMATOCRIT 34.4 % (36.0-47.0); HEMOGLOBIN 10.7 g/dl (12.0-15.5); LYMPH # 1.4 10^3/uL (1.5-5.0); LYMPH % 19.7 % (24.0-44.0); MEAN CORPUSCULAR HEMOGLOBIN 31.4 pg (27.0-33.0); MEAN CORPUSCULAR HGB CONC 31.1 g/dl (32.0-36.5); MEAN CORPUSCULAR VOLUME 100.9 fl (80.0-96.0); MONO # 0.7 10^3/uL (0.0-0.8); MONO % 10.8 % (2.0-8.0); NEUTROPHILS # 4.5 10^3/uL (1.5-8.5); PLATELET COUNT, AUTOMATED 156 10^3/uL (150-450); RED BLOOD COUNT 3.41 10^6/uL (4.00-5.40); WHITE BLOOD COUNT 6.8 10^3/uL (4.0-10.0)
[2021-11-28 16:33] LABS: HEMOGLOBIN A1c 5.9 %
[2021-11-28 16:35] LABS: ALBUMIN 3.5 GM/DL (3.2-5.2); BILIRUBIN,TOTAL 0.5 MG/DL (0.2-1.0); CALCIUM LEVEL 9.1 MG/DL (8.8-10.2); CHOLESTEROL RISK RATIO 2.418 (<5); CREATININE FOR GFR 1.72 MG/DL (0.55-1.30); POTASSIUM SERUM 4.5 MEQ/L (3.5-5.1); THYROID STIMULATING HORMONE 1.68 uIU/ML (0.358-3.740); TOTAL 25(OH) VITAMIN D 31.1 NG/ML (30.0-100.0); TOTAL PROTEIN 6.9 GM/DL (6.4-8.2)
[2021-11-28 16:37] LABS: MALB URINE SIEMENS 14.7 MG/L; MAU/CREAT RATIO 21.3 MCG/MG (0.0-30.0)
== END ==
LOC: M SFHCCAPE 07:46
PROVIDERS: ATTEND Physician Assistant
DX: E11.8 Type 2 diabetes mellitus with unspecified complications (principal); Z79.899 Other long term (current) drug therapy

== ENCOUNTER → 2021-12-12 | Outpatient (CLI) | payer MEDICARE | LOC: M WHC 15:08 | PROVIDERS: ATTEND Physician Assistant | DX: Z12.31 Encounter for screening mammogram for malignant neoplasm of breast (principal) ==

== ENCOUNTER → 2021-12-16 | Outpatient (REF) | payer MEDICARE ==
[2021-12-16 16:19] LABS: BASO % 0.7 % (0.0-1.0); EOS # 0.1 10^3/uL (0.0-0.5); EOS % 2.5 % (0.0-3.0); HEMATOCRIT 33.6 % (36.0-47.0); HEMOGLOBIN 10.4 g/dl (12.0-15.5); LYMPH # 1.2 10^3/uL (1.5-5.0); LYMPH % 20.9 % (24.0-44.0); MONO # 0.6 10^3/uL (0.0-0.8); MONO % 11.4 % (2.0-8.0); NEUTROPHILS # 3.6 10^3/uL (1.5-8.5); NEUTROPHILS % 64.1 % (36.0-66.0); PLATELET COUNT, AUTOMATED 137 10^3/uL (150-450); RED BLOOD COUNT 3.36 10^6/uL (4.00-5.40); WHITE BLOOD COUNT 5.6 10^3/uL (4.0-10.0)
[2021-12-16 16:49] LABS: ALBUMIN 3.4 GM/DL (3.2-5.2); BILIRUBIN,TOTAL 0.6 MG/DL (0.2-1.0); CALCIUM LEVEL 9.4 MG/DL (8.8-10.2); CREATININE FOR GFR 1.63 MG/DL (0.55-1.30); GLOMERULAR FILTRATION RATE 31.9 (>32); POTASSIUM SERUM 4.7 MEQ/L (3.5-5.1); TOTAL PROTEIN 6.7 GM/DL (6.4-8.2)
[2021-12-16 17:50] LABS: FOLATE 12.1 NG/ML
== END ==
LOC: M SFHCCAPE 10:01
PROVIDERS: ATTEND Physician Assistant
DX: E11.8 Type 2 diabetes mellitus with unspecified complications (principal); D64.9 Anemia, unspecified

== ENCOUNTER → 2022-01-06 | Outpatient (CLI) | payer MEDICARE | LOC: M PAIN 11:15 | PROVIDERS: ATTEND Anesthesiology | DX: M51.16 Intervertebral disc disorders with radiculopathy, lumbar region (principal); M47.816 Spondylosis without myelopathy or radiculopathy, lumbar region; G89.29 Other chronic pain; E11.9 Type 2 diabetes mellitus without complications; K21.9 Gastro-esophageal reflux disease without esophagitis; J45.909 Unspecified asthma, uncomplicated; Z87.891 Personal history of nicotine dependence; Z88.0 Allergy status to penicillin; Z88.1 Allergy status to other antibiotic agents; Z79.4 Long term (current) use of insulin; Z79.51 Long term (current) use of inhaled steroids; Z79.82 Long term (current) use of aspirin; Z79.899 Other long term (current) drug therapy ==

== ENCOUNTER → 2022-03-03 | Outpatient (CLI) | payer MEDICARE | LOC: M RAD 09:31 | PROVIDERS: ATTEND Internal Medicine Pulmonary Disease | DX: R91.8 Other nonspecific abnormal finding of lung field (principal) ==

== ENCOUNTER → 2022-03-11 | Outpatient (REF) | payer MEDICARE ==
[2022-03-11 18:04] LABS: BASO % 0.6 % (0.0-1.0); EOS # 0.2 10^3/uL (0.0-0.5); EOS % 2.1 % (0.0-3.0); HEMATOCRIT 35.8 % (36.0-47.0); HEMOGLOBIN 11.1 g/dl (12.0-15.5); LYMPH # 1.1 10^3/uL (1.5-5.0); MEAN CORPUSCULAR HEMOGLOBIN 30.7 pg (27.0-33.0); MEAN CORPUSCULAR VOLUME 99.2 fl (80.0-96.0); MONO # 0.7 10^3/uL (0.0-0.8); MONO % 9.9 % (2.0-8.0); NEUTROPHILS # 5.2 10^3/uL (1.5-8.5); NEUTROPHILS % 72.1 % (36.0-66.0); PLATELET COUNT, AUTOMATED 115 10^3/uL (150-450); RED BLOOD COUNT 3.61 10^6/uL (4.00-5.40); WHITE BLOOD COUNT 7.2 10^3/uL (4.0-10.0)
[2022-03-11 18:30] LABS: APPEARANCE, URINE MANUAL CLEAR (CLEAR); COLOR, URINE MANUAL LT YELLOW (YELLOW)
[2022-03-11 18:31] LABS: BILIRUBIN, URINE MANUAL NEGATIVE (NEGATIVE); BLOOD URINE MANUAL NEGATIVE (NEGATIVE); GLUCOSE, URINE (UA) MANUAL TRACE(50 MG/DL) mg/dL (NEGATIVE); KETONE, URINE MANUAL NEGATIVE (NEGATIVE); LEUKOCYTE ESTERASE, URINE MAN NEGATIVE (NEGATIVE); NITRITE, URINE MANUAL NEGATIVE (NEGATIVE); PROTEIN, URINE MANUAL NEGATIVE (NEGATIVE); UROBILINOGEN, URINE MANUAL NORMAL (NORMAL)
[2022-03-11 18:46] LABS: ALBUMIN 3.5 GM/DL (3.2-5.2); BILIRUBIN,TOTAL 0.5 MG/DL (0.2-1.0); CALCIUM LEVEL 8.9 MG/DL (8.8-10.2); CREATININE FOR GFR 1.4 MG/DL (0.55-1.30); PERCENT SATURATION 17.2 % (13.2-45.0); POTASSIUM SERUM 4.5 MEQ/L (3.5-5.1); THYROID STIMULATING HORMONE 1.19 uIU/ML (0.358-3.740); TOTAL PROTEIN 6.8 GM/DL (6.4-8.2)
== END ==
LOC: M SFHCCAPE 09:29
PROVIDERS: ATTEND Physician Assistant
DX: E11.8 Type 2 diabetes mellitus with unspecified complications (principal); R79.89 Other specified abnormal findings of blood chemistry

== ENCOUNTER → 2022-03-21 | Outpatient (CLI) | payer MEDICARE | LOC: M PAIN 11:45 | PROVIDERS: ATTEND Anesthesiology | DX: M48.061 Spinal stenosis, lumbar region without neurogenic claudication (principal); G89.29 Other chronic pain; E11.9 Type 2 diabetes mellitus without complications; I10 Essential (primary) hypertension; K21.9 Gastro-esophageal reflux disease without esophagitis; J45.909 Unspecified asthma, uncomplicated; Z87.891 Personal history of nicotine dependence; Z88.0 Allergy status to penicillin; Z88.1 Allergy status to other antibiotic agents; Z79.4 Long term (current) use of insulin; Z79.51 Long term (current) use of inhaled steroids; Z79.82 Long term (current) use of aspirin; Z79.899 Other long term (current) drug therapy ==

== ENCOUNTER → 2022-04-01 | Outpatient (REF) | payer MEDICARE ==
[2022-04-01 17:35] LABS: BASO # 0.1 10^3/uL (0.0-0.2); BASO % 0.8 % (0.0-1.0); EOS # 0.1 10^3/uL (0.0-0.5); EOS % 1.6 % (0.0-3.0); HEMATOCRIT 38.7 % (36.0-47.0); HEMOGLOBIN 11.8 g/dl (12.0-15.5); LYMPH # 1.3 10^3/uL (1.5-5.0); LYMPH % 15.3 % (24.0-44.0); MEAN CORPUSCULAR HEMOGLOBIN 30.2 pg (27.0-33.0); MEAN CORPUSCULAR HGB CONC 30.5 g/dl (32.0-36.5); MONO # 0.7 10^3/uL (0.0-0.8); MONO % 8.4 % (2.0-8.0); NEUTROPHILS # 6.4 10^3/uL (1.5-8.5); NEUTROPHILS % 73.6 % (36.0-66.0); PLATELET COUNT, AUTOMATED 161 10^3/uL (150-450); RED BLOOD COUNT 3.91 10^6/uL (4.00-5.40); WHITE BLOOD COUNT 8.7 10^3/uL (4.0-10.0)
[2022-04-01 18:13] LABS: ALBUMIN 3.6 GM/DL (3.2-5.2); ALT/SGPT 45 U/L (12-78); BILIRUBIN,TOTAL 0.7 MG/DL (0.2-1.0); BLOOD UREA NITROGEN 45 MG/DL (7-18); CARBON DIOXIDE LEVEL 26 MEQ/L (21-32); CHLORIDE LEVEL 109 MEQ/L (98-107); CREATININE FOR GFR 1.66 MG/DL (0.55-1.30); GLOMERULAR FILTRATION RATE 31.3 (>32); GLUCOSE, FASTING 196 MG/DL (70-100); POTASSIUM SERUM 4.8 MEQ/L (3.5-5.1); SODIUM LEVEL 140 MEQ/L (136-145); TOTAL PROTEIN 6.9 GM/DL (6.4-8.2)
== END ==
LOC: M LABDRWCV 16:48
PROVIDERS: ATTEND Internal Medicine Gastroenterology
DX: K74.60 Unspecified cirrhosis of liver (principal); D50.9 Iron deficiency anemia, unspecified

== ENCOUNTER → 2022-04-10 | Outpatient (CLI) | payer MEDICARE | LOC: M PAIN 15:00 | PROVIDERS: ATTEND Anesthesiology | DX: Z53.29 Procedure and treatment not carried out because of patient's decision for other reasons (principal) ==

== ENCOUNTER → 2022-04-17 | Outpatient (CLI) | payer MEDICARE ==
[~2022-04-17] MED LIST changes: +ISOVUE-370 76% 100ML VIAL As Ordered ONE
== END ==
LOC: M RAD 09:35
DX: C22.0 Liver cell carcinoma (principal); K74.60 Unspecified cirrhosis of liver; K76.6 Portal hypertension; D37.6 Neoplasm of uncertain behavior of liver, gallbladder and bile ducts
CPT/HCPCS: 74170; Q9967

== ENCOUNTER → 2022-04-21 | Outpatient (CLI) | payer MEDICARE ==
[~2022-04-21] MED LIST changes: -ISOVUE-370 76% 100ML VIAL As Ordered ONE
== END ==
LOC: M PAIN 13:30
PROVIDERS: ATTEND Anesthesiology
DX: M54.50 Low back pain, unspecified (principal); M79.18 Myalgia, other site; E11.9 Type 2 diabetes mellitus without complications; I10 Essential (primary) hypertension; K21.9 Gastro-esophageal reflux disease without esophagitis; J45.909 Unspecified asthma, uncomplicated; Z87.891 Personal history of nicotine dependence; Z88.0 Allergy status to penicillin; Z88.1 Allergy status to other antibiotic agents; Z79.4 Long term (current) use of insulin; Z79.51 Long term (current) use of inhaled steroids; Z79.82 Long term (current) use of aspirin; Z79.899 Other long term (current) drug therapy

== ENCOUNTER → 2022-09-25 | Outpatient (REF) | payer MEDICARE ==
[2022-09-25 18:41] LABS: BASO # 0.1 10^3/uL (0.0-0.2); BASO % 0.7 % (0.0-1.0); EOS # 0.1 10^3/uL (0.0-0.5); EOS % 1.7 % (0.0-3.0); HEMATOCRIT 38.3 % (36.0-47.0); HEMOGLOBIN 12.1 g/dl (12.0-15.5); LYMPH # 1.2 10^3/uL (1.5-5.0); LYMPH % 14.4 % (24.0-44.0); MEAN CORPUSCULAR HEMOGLOBIN 30.7 pg (27.0-33.0); MEAN CORPUSCULAR HGB CONC 31.6 g/dl (32.0-36.5); MEAN CORPUSCULAR VOLUME 97.2 fl (80.0-96.0); MONO % 12.3 % (2.0-8.0); NEUTROPHILS % 70.4 % (36.0-66.0); PLATELET COUNT, AUTOMATED 146 10^3/uL (150-450); RED BLOOD COUNT 3.94 10^6/uL (4.00-5.40); WHITE BLOOD COUNT 8.5 10^3/uL (4.0-10.0)
[2022-09-25 18:51] LABS: ALBUMIN 3.5 G/DL (3.2-5.2); BILIRUBIN,TOTAL 0.5 MG/DL (0.3-1.2); CALCIUM LEVEL 8.6 MG/DL (8.3-10.6); CREATININE FOR GFR 1.33 MG/DL (0.55-1.30); GLOMERULAR FILTRATION RATE 40.4 (>32); POTASSIUM SERUM 4.6 MMOL/L (3.5-5.1); TOTAL PROTEIN 6.6 G/DL (5.7-8.2)
== END ==
LOC: M SFHCCAPE 08:04
PROVIDERS: ATTEND Physician Assistant
DX: E11.8 Type 2 diabetes mellitus with unspecified complications (principal)

== ENCOUNTER → 2022-10-02 | Outpatient (CLI) | payer MEDICARE | LOC: M WUC 12:38 | PROVIDERS: ATTEND Student in an Organized Health Care Education/Training Program | DX: R05.9 Cough, unspecified (principal) ==

== ENCOUNTER → 2022-10-08 | Outpatient (CLI) | payer MEDICARE | LOC: M CLY 11:06 | PROVIDERS: ATTEND Physician Assistant | DX: J18.9 Pneumonia, unspecified organism (principal) ==

== ENCOUNTER → 2022-10-13 | Outpatient (CLI) | payer MEDICARE ==
[~2022-10-13] MED LIST changes: +ISOVUE-370 76% 100ML VIAL As Ordered ONE
== END ==
LOC: M RAD 08:13
DX: K74.60 Unspecified cirrhosis of liver (principal); C22.0 Liver cell carcinoma
CPT/HCPCS: 74170; Q9967

== ENCOUNTER → 2022-11-19 | Outpatient (CLI) | payer MEDICARE ==
[~2022-11-19] MED LIST changes: -ISOVUE-370 76% 100ML VIAL As Ordered ONE
== END ==
LOC: M WUC 12:02
PROVIDERS: ATTEND Physician Assistant
DX: J18.9 Pneumonia, unspecified organism (principal)

== ENCOUNTER → 2022-12-09 | Outpatient (CLI) | payer MEDICARE | LOC: M PLAIMG 10:50 | PROVIDERS: ATTEND Internal Medicine Pulmonary Disease | DX: R91.8 Other nonspecific abnormal finding of lung field (principal) ==

== ENCOUNTER → 2022-12-11 | Outpatient (REF) | payer MEDICARE | LOC: M SFHCCAPE 13:46 | PROVIDERS: ATTEND Physician Assistant | DX: R30.0 Dysuria (principal) ==

== ENCOUNTER → 2022-12-16 | Outpatient (REF) | payer MEDICARE ==
[~2022-12-16] MED LIST changes: +ARNU1INH PO; +ASPI-161 PO; +GABA-282 PO; +JARD1TAB PO; +OCUVTAB4 PO; +PRAV10TA3 PO; +VITAD400CA PO
[2022-12-16 18:42] LABS: ALBUMIN 3.6 G/DL (3.2-5.2); BILIRUBIN,TOTAL 0.8 MG/DL (0.3-1.2); CALCIUM LEVEL 8.8 MG/DL (8.3-10.6); CHOLESTEROL RISK RATIO 2.59 (<5); CREATININE FOR GFR 1.47 MG/DL (0.55-1.30); GLOMERULAR FILTRATION RATE 35.9 (>32); HDL CHOLESTEROL 53.9 MG/DL (>40); LDL CHOLESTEROL 66.1 MG/DL (<100); NON-HDL-C 86.1 MG/DL; POTASSIUM SERUM 4.7 MMOL/L (3.5-5.1); TOTAL PROTEIN 6.4 G/DL (5.7-8.2)
[2022-12-16 18:44] LABS: TOTAL 25(OH) VITAMIN D 47.5 NG/ML (20.0-100.0)
[2022-12-16 18:59] LABS: CREATININE, URINE 61.2 MG/DL; MAU/CREAT RATIO 21.2 MCG/MG (0.0-30.0)
[2022-12-16 19:55] LABS: HEMOGLOBIN A1c 10.3 % (4.0-6.0)
== END ==
LOC: M SFHCCAPE 09:28
PROVIDERS: ATTEND Physician Assistant
DX: J22 Unspecified acute lower respiratory infection (principal); J40 Bronchitis, not specified as acute or chronic; I10 Essential (primary) hypertension; J18.9 Pneumonia, unspecified organism; E11.8 Type 2 diabetes mellitus with unspecified complications; E78.5 Hyperlipidemia, unspecified; Z79.899 Other long term (current) drug therapy

== ENCOUNTER → 2022-12-16 | Outpatient (CLI) | payer MEDICARE | LOC: M CLY 10:35 | PROVIDERS: ATTEND Physician Assistant | DX: J22 Unspecified acute lower respiratory infection (principal); J40 Bronchitis, not specified as acute or chronic ==

== ENCOUNTER 2022-12-17 10:22 | Inpatient (IN) | payer MEDICARE ==
[~2022-12-17] VITALS: Ht 157.5 cm; Wt 91.2 kg
[~2022-12-17 10:22] MED LIST changes: -ARNU1INH PO; -ASPI-161 PO; -GABA-282 PO; -JARD1TAB PO; -OCUVTAB4 PO; -PRAV10TA3 PO; -VITAD400CA PO
[2022-12-17 11:18] LABS: HEMATOCRIT 38.3 % (36.0-47.0); HEMOGLOBIN 12.4 g/dl (12.0-15.5); MEAN CORPUSCULAR HGB CONC 32.4 g/dl (32.0-36.5); MEAN CORPUSCULAR VOLUME 95.8 fl (80.0-96.0); PLATELET COUNT, AUTOMATED 141 10^3/uL (150-450); WHITE BLOOD COUNT 12.7 10^3/uL (4.0-10.0)
[2022-12-17 11:19] LABS: VENOUS BASE EXCESS 0.5 (-2.0-2.0); VENOUS HCO3 24.9 MMOL/L (23.0-27.0); VENOUS O2 SATURATION 78.8 % (60.0-80.0); VENOUS PARTIAL PRESSURE CO2 39.3 mmHg (38.0-50.0); VENOUS PARTIAL PRESSURE O2 41.5 mmHg (30.0-50.0); VENOUS PH 7.419 UNITS (7.330-7.430); VENOUS STANDARD HCO3 24.5 MMOL/L; VENOUS TOTAL CO2 26.1 MMOL/L (24.0-28.0)
[2022-12-17 11:39] LABS: THYROID STIMULATING HORMONE 1.293 uIU/ML (0.55-4.78)
[2022-12-17 11:42] LABS: ALBUMIN 3.5 G/DL (3.2-5.2); BILIRUBIN,DIRECT 0.5 MG/DL (<0.4); BILIRUBIN,TOTAL 1.5 MG/DL (0.3-1.2); CALCIUM LEVEL 8.9 MG/DL (8.3-10.6); CREATININE FOR GFR 1.53 MG/DL (0.55-1.30); GLOMERULAR FILTRATION RATE 34.3 (>32); TOTAL PROTEIN 6.4 G/DL (5.7-8.2)
[2022-12-17] MEDS ORDERED: DOXYCYCLINE HYCLATE 100MG TABLET PO ONE (12:30)
[2022-12-17] MEDS ORDERED: cefTRIAXone SOD 1 GM in D5W MINI-BAG PLUS 50 ML IV ONE (12:30)
[2022-12-17] MEDS ORDERED: methylPREDNISolone 125MG 2ML VIAL IV ONE (12:35)
[2022-12-17 12:44] LABS: ATYPICAL LYMPH 11 % (0-5); LYMPHOCYTES 9 % (16-44); METAMYELOCYTES 1 % (0-0); MONOCYTES 5 % (0-5); NEUTROPHILS 50 % (28-66)
[2022-12-17 12:45] LABS: ANISOCYTOSIS 1+; PLATELET ESTIMATE NORMAL (NORMAL)
[2022-12-17] MEDS: IPRATROPIUM 0.5MG/ALBUTEROL 2.5MG INH SOL UD 3ML (DUONEB) NEB SCH ×3 (12:50→13:56)
[2022-12-17 13:06] VITALS: O2SAT 94
[2022-12-17] MEDS ORDERED: MED REC IN PROGRESS XX SCH (13:35)
[2022-12-17] MEDS ORDERED: ASPI-161 PO (14:27)
[2022-12-17] MEDS ORDERED: GABA-282 PO (14:37)
[2022-12-17] MEDS ORDERED: JARD1TAB PO (14:45)
[2022-12-17] MEDS ORDERED: PRAV10TA3 PO (14:45)
[2022-12-17] MEDS ORDERED: OCUVTAB4 PO (14:45)
[2022-12-17] MEDS ORDERED: VITAD400CA PO (14:45)
[2022-12-17] MEDS ORDERED: ARNU1INH PO (14:46)
[2022-12-17] MEDS ORDERED: HOME MED LIST COMPLETE! XX SCH (14:55)
[2022-12-17] MEDS ORDERED: GLUCOSE 4GM CHEW TABLET PO PRN (15:00)
[2022-12-17] MEDS ORDERED: GLUCAGON INJ 1MG VIAL SC PRN (15:00)
[2022-12-17] MEDS ORDERED: DEXTROSE 50% 50ML SYRINGE IV PRN (15:00)
[2022-12-17 16:30] VITALS: TEMP 97.7; O2SAT 96
[2022-12-17] MEDS ORDERED: ACETAMINOPHEN 500 MG TAB PO PRN (17:15)
[2022-12-17] MEDS: LACTULOSE 20GM/30ML SYRUP UDC PO SCH ×2 (17:48→20:27)
[2022-12-17] MEDS: INSULIN LISPRO (NovoLOG) PER UNIT SC SCH ×2 (17:48→20:08)
[2022-12-17] MEDS: GABAPENTIN 300 MG CAP PO SCH ×2 (17:49→20:27)
[2022-12-17] MEDS: SYMBICORT 160/4.5MCG INHALER 6GM INH SCH (19:52)
[2022-12-17] MEDS: ALBUTEROL SULFATE 2.5MG/0.5ML INH NEB SOLN NEB SCH ×2 (19:52→23:26)
[2022-12-17] MEDS: methylPREDNISolone 40MG 1ML VIAL IV SCH (20:26)
[2022-12-17] MEDS: DOXYCYCLINE HYCLATE 100 MG in D5W MINI-BAG PLUS 100 ML IV SCH (20:26)
[2022-12-17] MEDS: LEVEMIR (INSULIN DETEMIR) 1 UNITS/0.01ML SC SCH (20:26)
[2022-12-17] MEDS: rifAXIMin 550 MG TAB (XIFAXAN) PO SCH (20:27)
[2022-12-17] MEDS: FERROUS GLUCONATE 324 MG TAB PO SCH (20:27)
[2022-12-17 20:30] VITALS: BP 137/68; TEMP 97.5; O2SAT 93
[2022-12-18] MEDS: methylPREDNISolone 40MG 1ML VIAL IV SCH (04:01)
[2022-12-18] MEDS: ALBUTEROL SULFATE 2.5MG/0.5ML INH NEB SOLN NEB SCH ×5 (04:26→19:44)
[2022-12-18 05:28] VITALS: BP 175/80; TEMP 97.1; O2SAT 92
[2022-12-18 05:48] VITALS: BP 168/72
[2022-12-18 06:04] LABS: BASO % 0.1 % (0.0-1.0); HEMOGLOBIN 11.7 g/dl (12.0-15.5); LYMPH # 0.7 10^3/uL (1.5-5.0); LYMPH % 7.8 % (24.0-44.0); MEAN CORPUSCULAR HEMOGLOBIN 31.1 pg (27.0-33.0); MEAN CORPUSCULAR HGB CONC 32.5 g/dl (32.0-36.5); MEAN CORPUSCULAR VOLUME 95.7 fl (80.0-96.0); MONO # 0.4 10^3/uL (0.0-0.8); MONO % 4.8 % (2.0-8.0); NEUTROPHILS # 7.9 10^3/uL (1.5-8.5); NEUTROPHILS % 86.9 % (36.0-66.0); PLATELET COUNT, AUTOMATED 135 10^3/uL (150-450); RED BLOOD COUNT 3.76 10^6/uL (4.00-5.40); WHITE BLOOD COUNT 9.1 10^3/uL (4.0-10.0)
[2022-12-18 06:13] LABS: CALCIUM LEVEL 9.2 MG/DL (8.3-10.6); CREATININE FOR GFR 1.68 MG/DL (0.55-1.30); GLOMERULAR FILTRATION RATE 30.8 (>32); POTASSIUM SERUM 4.2 MMOL/L (3.5-5.1)
[2022-12-18] MEDS ORDERED: amLODIPine 5 MG TAB PO ONE (07:00)
[2022-12-18] MEDS: SYMBICORT 160/4.5MCG INHALER 6GM INH SCH ×2 (07:15→20:29)
[2022-12-18 07:59] VITALS: BP 133/59
[2022-12-18] MEDS: LEVEMIR (INSULIN DETEMIR) 1 UNITS/0.01ML SC SCH ×2 (08:18→20:15)
[2022-12-18] MEDS: INSULIN LISPRO (NovoLOG) PER UNIT SC SCH ×4 (08:19→20:16)
[2022-12-18] MEDS: CARVedilol 12.5 MG TAB PO SCH ×2 (08:19→20:17)
[2022-12-18] MEDS: OMEPRAZOLE 20MG CAP PO SCH (08:19)
[2022-12-18] MEDS: GABAPENTIN 300 MG CAP PO SCH ×3 (08:19→20:17)
[2022-12-18] MEDS: rifAXIMin 550 MG TAB (XIFAXAN) PO SCH ×2 (08:19→20:16)
[2022-12-18] MEDS: FERROUS GLUCONATE 324 MG TAB PO SCH ×2 (08:19→20:17)
[2022-12-18] MEDS: LACTULOSE 20GM/30ML SYRUP UDC PO SCH ×3 (08:19→20:16)
[2022-12-18] MEDS: PRAVASTATIN 10 MG TAB PO SCH (08:19)
[2022-12-18] MEDS: DOXYCYCLINE HYCLATE 100 MG in D5W MINI-BAG PLUS 100 ML IV SCH (08:21)
[2022-12-18] MEDS ORDERED: CARVedilol 12.5 MG TAB PO SCH (09:00)
[2022-12-18] MEDS: ASPIRIN 81MG ENTERIC TABLET PO SCH (13:33)
[2022-12-18] MEDS: cefTRIAXone SOD 1 GM in D5W MINI-BAG PLUS 50 ML IV SCH (13:33)
[2022-12-18 14:00] VITALS: BP 141/60; TEMP 97.2; O2SAT 94
[2022-12-18] MEDS ORDERED: methylPREDNISolone 40MG 1ML VIAL IV SCH (16:00)
[2022-12-18 19:54] VITALS: BP 173/79; TEMP 97.2; O2SAT 99
[2022-12-18] MEDS: DOXYCYCLINE HYCLATE 100MG TABLET PO SCH (20:17)
[2022-12-19] MEDS: ALBUTEROL SULFATE 2.5MG/0.5ML INH NEB SOLN NEB SCH ×7 (00:12→23:21)
[2022-12-19 01:58] VITALS: BP 148/68
[2022-12-19 06:00] VITALS: BP 152/64; TEMP 97.7; O2SAT 94
[2022-12-19 06:03] LABS: BASO % 0.1 % (0.0-1.0); HEMOGLOBIN 11.3 g/dl (12.0-15.5); LYMPH # 0.6 10^3/uL (1.5-5.0); LYMPH % 6.2 % (24.0-44.0); MEAN CORPUSCULAR HEMOGLOBIN 30.5 pg (27.0-33.0); MEAN CORPUSCULAR HGB CONC 32.3 g/dl (32.0-36.5); MEAN CORPUSCULAR VOLUME 94.6 fl (80.0-96.0); MONO # 0.5 10^3/uL (0.0-0.8); MONO % 5.6 % (2.0-8.0); NEUTROPHILS # 8.5 10^3/uL (1.5-8.5); NEUTROPHILS % 87.4 % (36.0-66.0); PLATELET COUNT, AUTOMATED 145 10^3/uL (150-450); WHITE BLOOD COUNT 9.7 10^3/uL (4.0-10.0)
[2022-12-19 06:22] LABS: CALCIUM LEVEL 9.5 MG/DL (8.3-10.6); CREATININE FOR GFR 1.87 MG/DL (0.55-1.30); GLOMERULAR FILTRATION RATE 27.2 (>32); POTASSIUM SERUM 4.3 MMOL/L (3.5-5.1)
[2022-12-19] MEDS ORDERED: NS 1,000 ML IV ONE (07:30)
[2022-12-19] MEDS: SYMBICORT 160/4.5MCG INHALER 6GM INH SCH ×2 (07:41→19:33)
[2022-12-19] MEDS: OMEPRAZOLE 20MG CAP PO SCH (08:40)
[2022-12-19] MEDS: DOXYCYCLINE HYCLATE 100MG TABLET PO SCH ×2 (08:40→20:59)
[2022-12-19] MEDS: LACTULOSE 20GM/30ML SYRUP UDC PO SCH ×3 (08:40→20:57)
[2022-12-19] MEDS: rifAXIMin 550 MG TAB (XIFAXAN) PO SCH ×2 (08:40→20:59)
[2022-12-19] MEDS: FERROUS GLUCONATE 324 MG TAB PO SCH ×2 (08:41→20:59)
[2022-12-19] MEDS: CARVedilol 12.5 MG TAB PO SCH ×2 (08:41→20:59)
[2022-12-19] MEDS: GABAPENTIN 300 MG CAP PO SCH ×2 (08:41→20:59)
[2022-12-19] MEDS: PRAVASTATIN 10 MG TAB PO SCH (08:42)
[2022-12-19] MEDS: LEVEMIR (INSULIN DETEMIR) 1 UNITS/0.01ML SC SCH ×2 (08:42→20:57)
[2022-12-19] MEDS: predniSONE 20 MG TAB PO SCH (08:42)
[2022-12-19] MEDS: INSULIN LISPRO (NovoLOG) PER UNIT SC SCH ×4 (08:43→20:57)
[2022-12-19] MEDS ORDERED: amLODIPine 5 MG TAB PO SCH (09:00)
[2022-12-19] MEDS: ASPIRIN 81MG ENTERIC TABLET PO SCH (12:10)
[2022-12-19] MEDS: cefTRIAXone SOD 1 GM in D5W MINI-BAG PLUS 50 ML IV SCH (12:10)
[2022-12-19] MEDS: NS 1,000 ML IV SCH (13:17)
[2022-12-19 15:00] VITALS: BP 143/66; TEMP 97.7; O2SAT 96
[2022-12-19 20:00] VITALS: BP 144/68; TEMP 97.2; O2SAT 92
[2022-12-20] MEDS: NS 1,000 ML IV SCH (02:30)
[2022-12-20] MEDS: ALBUTEROL SULFATE 2.5MG/0.5ML INH NEB SOLN NEB SCH ×6 (03:12→23:30)
[2022-12-20 06:00] VITALS: BP 128/60; TEMP 97; O2SAT 96
[2022-12-20 06:07] LABS: BASO % 0.1 % (0.0-1.0); HEMOGLOBIN 10.8 g/dl (12.0-15.5); LYMPH # 0.5 10^3/uL (1.5-5.0); LYMPH % 6.5 % (24.0-44.0); MEAN CORPUSCULAR HEMOGLOBIN 31.5 pg (27.0-33.0); MEAN CORPUSCULAR HGB CONC 32.7 g/dl (32.0-36.5); MEAN CORPUSCULAR VOLUME 96.2 fl (80.0-96.0); MONO # 0.6 10^3/uL (0.0-0.8); MONO % 7.2 % (2.0-8.0); NEUTROPHILS # 6.9 10^3/uL (1.5-8.5); NEUTROPHILS % 85.5 % (36.0-66.0); PLATELET COUNT, AUTOMATED 128 10^3/uL (150-450); RED BLOOD COUNT 3.43 10^6/uL (4.00-5.40)
[2022-12-20 06:27] LABS: CREATININE FOR GFR 1.33 MG/DL (0.55-1.30); GLOMERULAR FILTRATION RATE 40.3 (>32); POTASSIUM SERUM 4.3 MMOL/L (3.5-5.1)
[2022-12-20] MEDS: SYMBICORT 160/4.5MCG INHALER 6GM INH SCH ×2 (07:45→19:45)
[2022-12-20 08:30] VITALS: BP 182/74; O2SAT 97
[2022-12-20] MEDS: CARVedilol 12.5 MG TAB PO SCH ×2 (09:00→20:53)
[2022-12-20] MEDS ORDERED: FUROSEMIDE 40MG/4ML VIAL IV ONE (09:25)
[2022-12-20] MEDS: INSULIN LISPRO (NovoLOG) PER UNIT SC SCH ×4 (09:32→20:49)
[2022-12-20] MEDS: LEVEMIR (INSULIN DETEMIR) 1 UNITS/0.01ML SC SCH ×2 (09:33→20:48)
[2022-12-20] MEDS: predniSONE 20 MG TAB PO SCH (09:33)
[2022-12-20] MEDS: rifAXIMin 550 MG TAB (XIFAXAN) PO SCH ×2 (09:33→20:49)
[2022-12-20] MEDS: DOXYCYCLINE HYCLATE 100MG TABLET PO SCH ×2 (09:34→20:51)
[2022-12-20] MEDS: GABAPENTIN 300 MG CAP PO SCH ×2 (09:34→20:51)
[2022-12-20] MEDS: OMEPRAZOLE 20MG CAP PO SCH (09:34)
[2022-12-20] MEDS: PRAVASTATIN 10 MG TAB PO SCH (09:34)
[2022-12-20] MEDS: FERROUS GLUCONATE 324 MG TAB PO SCH ×2 (09:34→20:51)
[2022-12-20] MEDS: LACTULOSE 20GM/30ML SYRUP UDC PO SCH ×3 (09:35→20:47)
[2022-12-20] MEDS: amLODIPine 5 MG TAB PO SCH (10:07)
[2022-12-20] MEDS: DEXTROMETHORPHAN 60MG/10ML SUSP 90ML BTL(DELSYM) PO SCH ×2 (12:31→20:49)
[2022-12-20] MEDS: ASPIRIN 81MG ENTERIC TABLET PO SCH (12:32)
[2022-12-20] MEDS: **hydrALAZINE HCL** 25 MG TAB PO SCH ×2 (12:32→17:44)
[2022-12-20] MEDS: cefTRIAXone SOD 1 GM in D5W MINI-BAG PLUS 50 ML IV SCH (12:33)
[2022-12-20 14:41] VITALS: BP 164/70; TEMP 97.7; O2SAT 98
[2022-12-20 22:00] VITALS: BP 161/83; TEMP 97.3; O2SAT 95
[2022-12-21] MEDS: **hydrALAZINE HCL** 25 MG TAB PO SCH ×4 (00:25→17:35)
[2022-12-21] MEDS: ALBUTEROL SULFATE 2.5MG/0.5ML INH NEB SOLN NEB SCH ×6 (04:39→23:10)
[2022-12-21 05:24] LABS: APPEARANCE, URINE CLEAR (CLEAR); BACTERIA, URINE AUTO NEGATIVE (NEGATIVE); BILIRUBIN, URINE AUTO NEGATIVE (NEGATIVE); BLOOD, URINE BLOOD NEGATIVE (NEGATIVE); COLOR, URINE STRAW (YELLOW); GLUCOSE, URINE (UA) AUTO 3+ mg/dL (NEGATIVE); KETONE, URINE AUTO NEGATIVE (NEGATIVE); LEUKOCYTE ESTERASE, URINE AUTO NEGATIVE (NEGATIVE); NITRITE, URINE AUTO NEGATIVE (NEGATIVE); PROTEIN, URINE AUTO NEGATIVE (NEGATIVE); RBC, URINE AUTO 1 /HPF (0-3); SPECIFIC GRAVITY URINE AUTO 1.018 (1.002-1.035); SQUAMOUS EPITHELIAL CELL UR AU 0 /HPF (0-6); UROBILINOGEN, URINE AUTO 0.2 mg/dL (0.0-2.0); WBC, URINE AUTO 0 /HPF (0-3)
[2022-12-21 06:04] LABS: BASO % 0.1 % (0.0-1.0); HEMATOCRIT 33.8 % (36.0-47.0); HEMOGLOBIN 10.8 g/dl (12.0-15.5); LYMPH # 0.6 10^3/uL (1.5-5.0); LYMPH % 7.8 % (24.0-44.0); MEAN CORPUSCULAR HEMOGLOBIN 30.3 pg (27.0-33.0); MEAN CORPUSCULAR VOLUME 94.7 fl (80.0-96.0); MONO # 0.7 10^3/uL (0.0-0.8); MONO % 9.5 % (2.0-8.0); NEUTROPHILS % 81.4 % (36.0-66.0); PLATELET COUNT, AUTOMATED 132 10^3/uL (150-450); RED BLOOD COUNT 3.57 10^6/uL (4.00-5.40); WHITE BLOOD COUNT 7.3 10^3/uL (4.0-10.0)
[2022-12-21 06:10] LABS: CALCIUM LEVEL 8.6 MG/DL (8.3-10.6); CREATININE FOR GFR 1.23 MG/DL (0.55-1.30); GLOMERULAR FILTRATION RATE 44.1 (>32); POTASSIUM SERUM 4.2 MMOL/L (3.5-5.1)
[2022-12-21] MEDS: SYMBICORT 160/4.5MCG INHALER 6GM INH SCH ×2 (07:44→18:53)
[2022-12-21] MEDS: FERROUS GLUCONATE 324 MG TAB PO SCH ×2 (08:44→20:25)
[2022-12-21] MEDS: predniSONE 10MG TAB PO SCH (08:44)
[2022-12-21] MEDS: rifAXIMin 550 MG TAB (XIFAXAN) PO SCH ×2 (08:44→20:25)
[2022-12-21] MEDS: OMEPRAZOLE 20MG CAP PO SCH (08:44)
[2022-12-21] MEDS: DOXYCYCLINE HYCLATE 100MG TABLET PO SCH ×2 (08:44→20:26)
[2022-12-21] MEDS: PRAVASTATIN 10 MG TAB PO SCH (08:45)
[2022-12-21] MEDS: GABAPENTIN 300 MG CAP PO SCH ×2 (08:45→20:25)
[2022-12-21] MEDS: LACTULOSE 20GM/30ML SYRUP UDC PO SCH ×3 (08:45→20:24)
[2022-12-21] MEDS: DEXTROMETHORPHAN 60MG/10ML SUSP 90ML BTL(DELSYM) PO SCH ×2 (08:45→20:24)
[2022-12-21] MEDS: amLODIPine 5 MG TAB PO SCH (08:45)
[2022-12-21] MEDS: INSULIN LISPRO (NovoLOG) PER UNIT SC SCH ×7 (08:46→20:27)
[2022-12-21] MEDS: LEVEMIR (INSULIN DETEMIR) 1 UNITS/0.01ML SC SCH ×2 (08:46→20:28)
[2022-12-21] MEDS: CARVedilol 12.5 MG TAB PO SCH ×2 (09:00→20:26)
[2022-12-21] MEDS: CEFDINIR 300 MG CAP (OMNICEF) PO SCH ×2 (12:22→20:25)
[2022-12-21] MEDS: ASPIRIN 81MG ENTERIC TABLET PO SCH (12:22)
[2022-12-21 14:00] VITALS: BP 140/68; TEMP 97.5; O2SAT 93
[2022-12-21 20:35] VITALS: BP 166/72; TEMP 97.3; O2SAT 96
[2022-12-22] MEDS: **hydrALAZINE HCL** 25 MG TAB PO SCH ×2 (01:32→06:14)
[2022-12-22] MEDS: ALBUTEROL SULFATE 2.5MG/0.5ML INH NEB SOLN NEB SCH ×3 (03:38→11:12)
[2022-12-22 06:00] VITALS: BP 154/56; TEMP 97.5; O2SAT 94
[2022-12-22 06:08] LABS: BASO % 0.3 % (0.0-1.0); HEMATOCRIT 33.4 % (36.0-47.0); LYMPH # 0.9 10^3/uL (1.5-5.0); MEAN CORPUSCULAR HEMOGLOBIN 30.6 pg (27.0-33.0); MEAN CORPUSCULAR HGB CONC 32.9 g/dl (32.0-36.5); MEAN CORPUSCULAR VOLUME 92.8 fl (80.0-96.0); MONO # 0.9 10^3/uL (0.0-0.8); MONO % 11.9 % (2.0-8.0); NEUTROPHILS # 5.1 10^3/uL (1.5-8.5); NEUTROPHILS % 70.9 % (36.0-66.0); PLATELET COUNT, AUTOMATED 152 10^3/uL (150-450); WHITE BLOOD COUNT 7.1 10^3/uL (4.0-10.0)
[2022-12-22 06:23] LABS: CREATININE FOR GFR 1.05 MG/DL (0.55-1.30); GLOMERULAR FILTRATION RATE 52.9 (>32)
[2022-12-22] MEDS: INSULIN LISPRO (NovoLOG) PER UNIT SC SCH (07:04)
[2022-12-22] MEDS: SYMBICORT 160/4.5MCG INHALER 6GM INH SCH (07:25)
[2022-12-22] MEDS ORDERED: INSULIN LISPRO (NovoLOG) PER UNIT SC SCH (07:30)
[2022-12-22] MEDS ORDERED: DELS30LI8 PO (07:57)
[2022-12-22] MEDS ORDERED: CEFD300CAP PO (07:57)
[2022-12-22] MEDS ORDERED: DOXY100T PO (07:57)
[2022-12-22] MEDS: DEXTROMETHORPHAN 60MG/10ML SUSP 90ML BTL(DELSYM) PO SCH (08:33)
[2022-12-22] MEDS: GABAPENTIN 300 MG CAP PO SCH (08:34)
[2022-12-22] MEDS: CEFDINIR 300 MG CAP (OMNICEF) PO SCH (08:34)
[2022-12-22] MEDS: rifAXIMin 550 MG TAB (XIFAXAN) PO SCH (08:34)
[2022-12-22] MEDS: DOXYCYCLINE HYCLATE 100MG TABLET PO SCH (08:34)
[2022-12-22] MEDS: PRAVASTATIN 10 MG TAB PO SCH (08:34)
[2022-12-22] MEDS: OMEPRAZOLE 20MG CAP PO SCH (08:34)
[2022-12-22] MEDS: predniSONE 10MG TAB PO SCH (08:34)
[2022-12-22 08:35] VITALS: BP 155/60
[2022-12-22] MEDS: FERROUS GLUCONATE 324 MG TAB PO SCH (08:35)
[2022-12-22] MEDS: amLODIPine 5 MG TAB PO SCH (08:35)
[2022-12-22] MEDS: CARVedilol 12.5 MG TAB PO SCH (08:35)
[2022-12-22] MEDS: LACTULOSE 20GM/30ML SYRUP UDC PO SCH (08:37)
[2022-12-22] MEDS ORDERED: LEVEMIR (INSULIN DETEMIR) 1 UNITS/0.01ML SC SCH (09:00)
[2022-12-22] MEDS ORDERED: FUROSEMIDE 40 MG TAB PO SCH (09:00)
[2022-12-22] MEDS ORDERED: LIDVISCBTL PO (10:36)
== END 2022-12-22 11:47 | disposition home or self-care (01) | DRG 865 ==
LOC: EDBD 10:22 → M ED 10:22 → M ED INP 14:58 → ENRESERV 15:24 → M MSPAV 16:31
PROVIDERS: ADMIT Internal Medicine Nephrology; ATTEND Internal Medicine Nephrology
DX: B34.8 Other viral infections of unspecified site (principal); J15.9 Unspecified bacterial pneumonia; J45.901 Unspecified asthma with (acute) exacerbation; I13.0 Hypertensive heart and chronic kidney disease with heart failure and stage 1 through stage 4 chronic kidney disease, or unspecified chronic kidney disease; N17.9 Acute kidney failure, unspecified; E87.1 Hypo-osmolality and hyponatremia; E87.20 Acidosis, unspecified; K74.60 Unspecified cirrhosis of liver; I50.9 Heart failure, unspecified; K75.81 Nonalcoholic steatohepatitis (NASH); E11.22 Type 2 diabetes mellitus with diabetic chronic kidney disease; I25.10 Atherosclerotic heart disease of native coronary artery without angina pectoris; N18.30 Chronic kidney disease, stage 3 unspecified; E78.5 Hyperlipidemia, unspecified; E66.9 Obesity, unspecified; E11.649 Type 2 diabetes mellitus with hypoglycemia without coma; D64.9 Anemia, unspecified; M19.90 Unspecified osteoarthritis, unspecified site; Z92.3 Personal history of irradiation; Z88.0 Allergy status to penicillin; Z88.2 Allergy status to sulfonamides; Z88.8 Allergy status to other drugs, medicaments and biological substances; Z79.899 Other long term (current) drug therapy; Z79.82 Long term (current) use of aspirin; Z79.4 Long term (current) use of insulin; Z85.828 Personal history of other malignant neoplasm of skin; Z85.05 Personal history of malignant neoplasm of liver; Z98.41 Cataract extraction status, right eye; Z98.42 Cataract extraction status, left eye; Z87.891 Personal history of nicotine dependence

== ENCOUNTER → 2023-01-06 | Outpatient (REF) | payer MEDICARE ==
[~2023-01-06] MED LIST changes: +ARNU1INH PO; +ASPI-161 PO; +CEFD300CAP PO; +DELS30LI8 PO; +DOXY100T PO; +GABA-282 PO; +JARD1TAB PO; +LIDVISCBTL PO; +OCUVTAB4 PO; +PRAV10TA3 PO; +VITAD400CA PO
[2023-01-06 18:43] LABS: BASO # 0.1 10^3/uL (0.0-0.2); BASO % 0.9 % (0.0-1.0); EOS # 0.1 10^3/uL (0.0-0.5); EOS % 1.6 % (0.0-3.0); HEMATOCRIT 32.9 % (36.0-47.0); HEMOGLOBIN 10.4 g/dl (12.0-15.5); LYMPH # 1.3 10^3/uL (1.5-5.0); LYMPH % 19.8 % (24.0-44.0); MEAN CORPUSCULAR HEMOGLOBIN 31.4 pg (27.0-33.0); MEAN CORPUSCULAR HGB CONC 31.6 g/dl (32.0-36.5); MEAN CORPUSCULAR VOLUME 99.4 fl (80.0-96.0); MONO # 0.6 10^3/uL (0.0-0.8); MONO % 9.3 % (2.0-8.0); NEUTROPHILS # 4.3 10^3/uL (1.5-8.5); NEUTROPHILS % 67.1 % (36.0-66.0); PLATELET COUNT, AUTOMATED 145 10^3/uL (150-450); RED BLOOD COUNT 3.31 10^6/uL (4.00-5.40); WHITE BLOOD COUNT 6.4 10^3/uL (4.0-10.0)
[2023-01-06 19:06] LABS: ALBUMIN 3.1 G/DL (3.2-5.2); BILIRUBIN,TOTAL 0.7 MG/DL (0.3-1.2); CALCIUM LEVEL 9.2 MG/DL (8.3-10.6); CREATININE FOR GFR 1.53 MG/DL (0.55-1.30); GLOMERULAR FILTRATION RATE 34.3 (>32); MAGNESIUM LEVEL 2.1 MG/DL (1.8-2.4); POTASSIUM SERUM 4.3 MMOL/L (3.5-5.1); TOTAL PROTEIN 5.9 G/DL (5.7-8.2)
== END ==
LOC: M SFHCCAPE 07:45
PROVIDERS: ATTEND Physician Assistant
DX: E11.69 Type 2 diabetes mellitus with other specified complication (principal); I11.9 Hypertensive heart disease without heart failure

== ENCOUNTER → 2023-01-14 | Outpatient (REF) | payer MEDICARE | LOC: M SFHCCAPE 11:56 | PROVIDERS: ATTEND Physician Assistant | DX: L57.0 Actinic keratosis (principal); L85.8 Other specified epidermal thickening ==

== ENCOUNTER → 2023-04-08 | Outpatient (CLI) | payer MEDICARE, MEDICAID ==
[~2023-04-08] MED LIST changes: -GABA-283 PO; +GABA-284 PO
== END ==
LOC: M WHC 13:53
PROVIDERS: ATTEND Physician Assistant
DX: Z12.31 Encounter for screening mammogram for malignant neoplasm of breast (principal)

== ENCOUNTER → 2023-05-05 | Outpatient (REF) | payer MEDICARE ==
[2023-05-05 17:30] LABS: BASO # 0.1 10^3/uL (0.0-0.2); EOS # 0.2 10^3/uL (0.0-0.5); EOS % 2.8 % (0.0-3.0); HEMATOCRIT 36.9 % (36.0-47.0); HEMOGLOBIN 11.7 g/dl (12.0-15.5); LYMPH # 1.7 10^3/uL (1.5-5.0); LYMPH % 23.1 % (24.0-44.0); MEAN CORPUSCULAR HGB CONC 31.7 g/dl (32.0-36.5); MEAN CORPUSCULAR VOLUME 97.9 fl (80.0-96.0); MONO # 0.9 10^3/uL (0.0-0.8); NEUTROPHILS # 4.4 10^3/uL (1.5-8.5); NEUTROPHILS % 60.4 % (36.0-66.0); PLATELET COUNT, AUTOMATED 142 10^3/uL (150-450); RED BLOOD COUNT 3.77 10^6/uL (4.00-5.40); WHITE BLOOD COUNT 7.3 10^3/uL (4.0-10.0)
[2023-05-05 17:52] LABS: HEMOGLOBIN A1c 8.6 % (4.0-6.0)
[2023-05-05 17:56] LABS: FERRITIN 160.5 NG/ML (7.3-270.7)
[2023-05-05 17:58] LABS: FOLATE 18.9 NG/ML (>5.4)
[2023-05-05 17:59] LABS: ALBUMIN 3.3 G/DL (3.2-5.2); BILIRUBIN,TOTAL 0.6 MG/DL (0.3-1.2); CALCIUM LEVEL 8.7 MG/DL (8.3-10.6); CREATININE FOR GFR 1.7 MG/DL (0.55-1.30); GLOMERULAR FILTRATION RATE 30.3 (>32); MAGNESIUM LEVEL 2.2 MG/DL (1.8-2.4); PERCENT SATURATION 23.6 % (13.2-45.0); POTASSIUM SERUM 4.4 MMOL/L (3.5-5.1); TOTAL PROTEIN 6.2 G/DL (5.7-8.2)
== END ==
LOC: M SFHCCAPE 07:12
PROVIDERS: ATTEND Physician Assistant Medical
DX: D64.9 Anemia, unspecified (principal); I50.9 Heart failure, unspecified; E11.65 Type 2 diabetes mellitus with hyperglycemia

== ENCOUNTER → 2023-10-05 | Outpatient (REF) | payer MEDICARE ==
[~2023-10-05] MED LIST changes: -ASPI-161 PO; +ASPI-615 PO
[2023-10-05 17:28] LABS: BASO # 0.1 10^3/uL (0.0-0.2); EOS # 0.2 10^3/uL (0.0-0.5); EOS % 2.8 % (0.0-3.0); HEMATOCRIT 37.6 % (36.0-47.0); LYMPH # 1.5 10^3/uL (1.5-5.0); LYMPH % 22.2 % (24.0-44.0); MEAN CORPUSCULAR HEMOGLOBIN 31.7 pg (27.0-33.0); MEAN CORPUSCULAR HGB CONC 31.9 g/dl (32.0-36.5); MEAN CORPUSCULAR VOLUME 99.2 fl (80.0-96.0); MONO # 0.8 10^3/uL (0.0-0.8); MONO % 12.1 % (2.0-8.0); NEUTROPHILS # 4.1 10^3/uL (1.5-8.5); NEUTROPHILS % 61.3 % (36.0-66.0); PLATELET COUNT, AUTOMATED 156 10^3/uL (150-450); RED BLOOD COUNT 3.79 10^6/uL (4.00-5.40); WHITE BLOOD COUNT 6.8 10^3/uL (4.0-10.0)
[2023-10-05 17:32] LABS: CREATININE, URINE 62.7 MG/DL; MALB URINE SIEMENS < 3.0 MG/L; MAU/CREAT RATIO 4.7 MCG/MG (0.0-30.0)
[2023-10-05 17:35] LABS: ALBUMIN 3.1 G/DL (3.2-5.2); BILIRUBIN,TOTAL 0.7 MG/DL (0.3-1.2); CALCIUM LEVEL 8.8 MG/DL (8.3-10.6); CHOLESTEROL RISK RATIO 2.71 (<5); CREATININE FOR GFR 1.69 MG/DL (0.55-1.30); GLOMERULAR FILTRATION RATE 30.5 (>32); HDL CHOLESTEROL 45.3 MG/DL (>40); LDL CHOLESTEROL 60.5 MG/DL (<100); NON-HDL-C 77.7 MG/DL; POTASSIUM SERUM 4.4 MMOL/L (3.5-5.1); TOTAL PROTEIN 6.1 G/DL (5.7-8.2)
== END ==
LOC: M SFHCCAPE 07:11
PROVIDERS: ATTEND Physician Assistant Medical
DX: E11.8 Type 2 diabetes mellitus with unspecified complications (principal); E78.5 Hyperlipidemia, unspecified; I50.9 Heart failure, unspecified; K74.60 Unspecified cirrhosis of liver

== ENCOUNTER → 2023-10-05 | Outpatient (REF) | payer MEDICARE ==
[2023-10-05 17:37] LABS: BASO # 0.1 10^3/uL (0.0-0.2); BASO % 1.2 % (0.0-1.0); EOS # 0.2 10^3/uL (0.0-0.5); EOS % 2.5 % (0.0-3.0); HEMATOCRIT 37.5 % (36.0-47.0); HEMOGLOBIN 11.9 g/dl (12.0-15.5); LYMPH # 1.5 10^3/uL (1.5-5.0); LYMPH % 21.9 % (24.0-44.0); MEAN CORPUSCULAR HEMOGLOBIN 31.5 pg (27.0-33.0); MEAN CORPUSCULAR HGB CONC 31.7 g/dl (32.0-36.5); MEAN CORPUSCULAR VOLUME 99.2 fl (80.0-96.0); MONO # 0.9 10^3/uL (0.0-0.8); MONO % 12.7 % (2.0-8.0); NEUTROPHILS # 4.1 10^3/uL (1.5-8.5); NEUTROPHILS % 61.1 % (36.0-66.0); PLATELET COUNT, AUTOMATED 149 10^3/uL (150-450); RED BLOOD COUNT 3.78 10^6/uL (4.00-5.40); WHITE BLOOD COUNT 6.7 10^3/uL (4.0-10.0)
[2023-10-05 18:14] LABS: ALBUMIN 3.2 G/DL (3.2-5.2); BILIRUBIN,TOTAL 0.7 MG/DL (0.3-1.2); CALCIUM LEVEL 8.8 MG/DL (8.3-10.6); CREATININE FOR GFR 1.67 MG/DL (0.55-1.30); GLOMERULAR FILTRATION RATE 30.9 (>32); POTASSIUM SERUM 4.4 MMOL/L (3.5-5.1); TOTAL PROTEIN 6.1 G/DL (5.7-8.2)
== END ==
LOC: M LABDRWCV 16:53
PROVIDERS: ATTEND Internal Medicine Gastroenterology
DX: C22.0 Liver cell carcinoma (principal)

== ENCOUNTER → 2023-10-06 | Outpatient (REF) | payer MEDICARE ==
[2023-10-06 16:22] LABS: INR 1.11
== END ==
LOC: M LAB REF 15:39
PROVIDERS: ATTEND Internal Medicine Gastroenterology
DX: C22.0 Liver cell carcinoma (principal)

== ENCOUNTER → 2023-10-15 | Outpatient (CLI) | payer MEDICARE ==
[~2023-10-15] MED LIST changes: +PROHANCE 279.3MG/ML 15ML VIAL As Ordered ONE; +PROHANCE 279.3MG/ML 5ML VIAL As Ordered ONE
== END ==
LOC: M RAD 15:06
PROVIDERS: ATTEND Internal Medicine Gastroenterology
DX: C22.0 Liver cell carcinoma (principal)
CPT/HCPCS: 74183; A9576

== ENCOUNTER → 2023-12-29 | Outpatient (CLI) | payer MEDICARE ==
[~2023-12-29] MED LIST changes: -PROHANCE 279.3MG/ML 15ML VIAL As Ordered ONE; -PROHANCE 279.3MG/ML 5ML VIAL As Ordered ONE
== END ==
LOC: M RAD 07:51
PROVIDERS: ATTEND Internal Medicine Nephrology
DX: I70.1 Atherosclerosis of renal artery (principal)

== ENCOUNTER → 2024-03-22 | Outpatient (CLI) | payer MEDICARE ==
[~2024-03-22] MED LIST changes: +GABA-1172 PO; -GABA-282 PO; +GLIP10TA15 PO; -GLIP10TA6 PO; +PROHANCE 279.3MG/ML 15ML VIAL ONE; +PROHANCE 279.3MG/ML 5ML VIAL ONE
== END ==
LOC: M PLAIMG 07:47
PROVIDERS: ATTEND Physician Assistant Medical
DX: C22.0 Liver cell carcinoma (principal); K75.81 Nonalcoholic steatohepatitis (NASH); K74.60 Unspecified cirrhosis of liver
CPT/HCPCS: 74183; A9576

== ENCOUNTER → 2024-04-05 | Outpatient (REF) | payer MEDICARE ==
[~2024-04-05] MED LIST changes: -PROHANCE 279.3MG/ML 15ML VIAL ONE; -PROHANCE 279.3MG/ML 5ML VIAL ONE
[2024-04-05 17:54] LABS: BASO # 0.1 10^3/uL (0.0-0.2); BASO % 1.1 % (0.0-1.0); EOS # 0.2 10^3/uL (0.0-0.5); EOS % 3.1 % (0.0-3.0); HEMATOCRIT 37.6 % (36.0-47.0); HEMOGLOBIN 12.1 g/dl (12.0-15.5); LYMPH # 1.6 10^3/uL (1.5-5.0); MEAN CORPUSCULAR HEMOGLOBIN 32.5 pg (27.0-33.0); MEAN CORPUSCULAR HGB CONC 32.2 g/dl (32.0-36.5); MEAN CORPUSCULAR VOLUME 101.1 fl (80.0-96.0); MONO # 0.9 10^3/uL (0.0-0.8); MONO % 12.2 % (2.0-8.0); NEUTROPHILS # 4.5 10^3/uL (1.5-8.5); NEUTROPHILS % 60.9 % (36.0-66.0); PLATELET COUNT, AUTOMATED 148 10^3/uL (150-450); RED BLOOD COUNT 3.72 10^6/uL (4.00-5.40); WHITE BLOOD COUNT 7.4 10^3/uL (4.0-10.0)
[2024-04-05 18:17] LABS: HEMOGLOBIN A1c 6.3 % (4.0-6.0)
[2024-04-05 18:24] LABS: ALBUMIN 3.5 G/DL (3.2-5.2); BILIRUBIN,TOTAL 0.7 MG/DL (0.3-1.2); CALCIUM LEVEL 9.7 MG/DL (8.3-10.6); CREATININE FOR GFR 1.81 MG/DL (0.55-1.30); GLOMERULAR FILTRATION RATE 28.2 (>32); MAGNESIUM LEVEL 2.3 MG/DL (1.8-2.4); POTASSIUM SERUM 4.8 MMOL/L (3.5-5.1); TOTAL PROTEIN 6.6 G/DL (5.7-8.2)
== END ==
LOC: M SFHCCAPE 07:09
PROVIDERS: ATTEND Physician Assistant Medical
DX: I50.9 Heart failure, unspecified (principal); E11.8 Type 2 diabetes mellitus with unspecified complications; K74.60 Unspecified cirrhosis of liver

== ENCOUNTER → 2024-04-05 | Outpatient (REF) | payer MEDICARE, MEDICAID ==
[2024-04-06 10:16] LABS: HEMOGLOBIN A1c 6.3 % (4.0-6.0)
[2024-04-06 11:35] LABS: CREATININE, URINE 69.7 MG/DL; MALB URINE SIEMENS < 3.0 MG/L; MAU/CREAT RATIO 4.3 MCG/MG (0.0-30.0)
== END ==
LOC: M LABDRWCV 10:11
PROVIDERS: ATTEND Nurse Practitioner Family
DX: E11.65 Type 2 diabetes mellitus with hyperglycemia (principal); I50.9 Heart failure, unspecified; K74.60 Unspecified cirrhosis of liver

== ENCOUNTER → 2024-05-05 | Outpatient (CLI) | payer MEDICARE, MEDICAID | LOC: M WHC 08:49 | PROVIDERS: ATTEND Physician Assistant Medical | DX: Z12.31 Encounter for screening mammogram for malignant neoplasm of breast (principal) ==

== ENCOUNTER → 2024-10-11 | Outpatient (REF) | payer MEDICARE ==
[2024-10-11 19:05] LABS: ALBUMIN 3.3 G/DL (3.2-5.2); BILIRUBIN,TOTAL 0.8 MG/DL (0.3-1.2); CALCIUM LEVEL 9.2 MG/DL (8.3-10.6); CHOLESTEROL RISK RATIO 2.34 (<5); CREATININE FOR GFR 1.44 MG/DL (0.55-1.30); HDL CHOLESTEROL 59.6 MG/DL (>40); LDL CHOLESTEROL 63.4 MG/DL (<100); NON-HDL-C 80.4 MG/DL; POTASSIUM SERUM 4.4 MMOL/L (3.5-5.1); TOTAL PROTEIN 6.2 G/DL (5.7-8.2)
[2024-10-11 19:09] LABS: BASO # 0.1 10^3/uL (0.0-0.2); BASO % 0.9 % (0.0-1.0); EOS # 0.2 10^3/uL (0.0-0.5); EOS % 2.8 % (0.0-3.0); HEMATOCRIT 36.5 % (36.0-47.0); HEMOGLOBIN 11.5 g/dl (12.0-15.5); LYMPH # 1.8 10^3/uL (1.5-5.0); LYMPH % 24.6 % (24.0-44.0); MEAN CORPUSCULAR HEMOGLOBIN 32.4 pg (27.0-33.0); MEAN CORPUSCULAR HGB CONC 31.5 g/dl (32.0-36.5); MEAN CORPUSCULAR VOLUME 102.8 fl (80.0-96.0); MONO % 13.7 % (2.0-8.0); NEUTROPHILS # 4.2 10^3/uL (1.5-8.5); NEUTROPHILS % 57.2 % (36.0-66.0); PLATELET COUNT, AUTOMATED 162 10^3/uL (150-450); RED BLOOD COUNT 3.55 10^6/uL (4.00-5.40); WHITE BLOOD COUNT 7.4 10^3/uL (4.0-10.0)
[2024-10-11 19:24] LABS: HEMOGLOBIN A1c 6.7 % (4.0-6.0)
== END ==
LOC: M SFHCCAPE 07:13
PROVIDERS: ATTEND Physician Assistant Medical
DX: D64.9 Anemia, unspecified (principal); I50.9 Heart failure, unspecified; E11.8 Type 2 diabetes mellitus with unspecified complications; E78.5 Hyperlipidemia, unspecified

== ENCOUNTER → 2024-10-19 | Outpatient (REF) | payer MEDICARE ==
[2024-10-19 18:46] LABS: MAU/CREAT RATIO 14.1 MCG/MG (0.0-30.0)
== END ==
LOC: M SFHCCAPE 08:40
PROVIDERS: ATTEND Physician Assistant Medical
DX: E11.8 Type 2 diabetes mellitus with unspecified complications (principal)

== ENCOUNTER → 2024-11-10 | Outpatient (CLI) | payer MEDICARE, MEDICAID ==
[~2024-11-10] MED LIST changes: +GADOXETATE DISODIUM 2.5MMOL/10ML VIAL As Ordered ONE
== END ==
LOC: M RAD 10:10
PROVIDERS: ATTEND Internal Medicine Gastroenterology
DX: C22.0 Liver cell carcinoma (principal); K74.60 Unspecified cirrhosis of liver; R16.0 Hepatomegaly, not elsewhere classified; K86.89 Other specified diseases of pancreas; I81 Portal vein thrombosis; N28.9 Disorder of kidney and ureter, unspecified
CPT/HCPCS: 74183; A9581

== ENCOUNTER → 2024-12-28 | Outpatient (CLI) | payer MEDICARE, MEDICAID ==
[~2024-12-28] MED LIST changes: -GADOXETATE DISODIUM 2.5MMOL/10ML VIAL As Ordered ONE; +ISOVUE-370 76% 100 ML VIAL As Ordered ONE; +LISI40TA10 PO; -LISI40TA4 PO; -PRAV10TA3 PO; +PRAV10TA43 PO
== END ==
LOC: M RAD 07:24
PROVIDERS: ATTEND Physician Assistant Medical
DX: C22.0 Liver cell carcinoma (principal)
CPT/HCPCS: 71260; Q9967

== ENCOUNTER → 2025-02-22 | Outpatient (REF) | payer MEDICARE, MEDICAID ==
[~2025-02-22] MED LIST changes: +CLOBETASOL; +DULA3PEN; -ISOVUE-370 76% 100 ML VIAL As Ordered ONE; +ONDA-84 PO; +TRAM50TA2
[2025-02-22 18:56] LABS: BASO # 0.1 10^3/uL (0.0-0.2); BASO % 0.9 % (0.0-1.0); EOS # 0.2 10^3/uL (0.0-0.5); EOS % 2.0 % (0.0-3.0); LYMPH # 1.3 10^3/uL (1.5-5.0); LYMPH % 14.8 % (24.0-44.0); MONO # 1.2 10^3/uL (0.0-0.8); MONO % 13.9 % (2.0-8.0); NEUTROPHILS # 5.9 10^3/uL (1.5-8.5); NEUTROPHILS % 67.9 % (36.0-66.0); PLATELET COUNT, AUTOMATED 184 10^3/uL (150-450)
[2025-02-22 18:57] LABS: ALT/SGPT 76.0 U/L (7.0-40); AST/SGOT 116.0 U/L (<34); CALCIUM LEVEL 9.2 MG/DL (8.3-10.6); CARBON DIOXIDE LEVEL 28.0 MMOL/L (20-31); CHLORIDE LEVEL 103.0 MMOL/L (98-107); CREATININE FOR GFR 1.51 MG/DL (0.55-1.30); GLOMERULAR FILTRATION RATE 33.1 (>32); MAGNESIUM LEVEL 2.4 MG/DL (1.8-2.4); POTASSIUM SERUM 4.7 MMOL/L (3.5-5.1); SODIUM LEVEL 141.0 MMOL/L (136-145)
[2025-02-22 18:59] LABS: FREE T4 0.96 NG/DL (0.89-1.76)
== END ==
LOC: M LABDRWCV 17:33
PROVIDERS: ATTEND Internal Medicine Medical Oncology
DX: C22.0 Liver cell carcinoma (principal)

== ENCOUNTER → 2025-03-06 | Outpatient (REF) | payer MEDICARE, MEDICAID ==
[2025-03-06 18:38] LABS: BASO # 0.1 10^3/uL (0.0-0.2); BASO % 1.5 % (0.0-1.0); EOS # 0.2 10^3/uL (0.0-0.5); EOS % 2.8 % (0.0-3.0); IRON (FE) 55.0 UG/DL (50-170); LYMPH # 1.5 10^3/uL (1.5-5.0); LYMPH % 25.5 % (24.0-44.0); MONO # 0.8 10^3/uL (0.0-0.8); MONO % 13.8 % (2.0-8.0); NEUTROPHILS # 3.4 10^3/uL (1.5-8.5); NEUTROPHILS % 55.7 % (36.0-66.0); PLATELET COUNT, AUTOMATED 174 10^3/uL (150-450)
[2025-03-06 18:39] LABS: ALT/SGPT 43.0 U/L (7.0-40); AST/SGOT 75.0 U/L (<34); CALCIUM LEVEL 8.6 MG/DL (8.3-10.6); CARBON DIOXIDE LEVEL 30.0 MMOL/L (20-31); CHLORIDE LEVEL 100.0 MMOL/L (98-107); CREATININE FOR GFR 1.47 MG/DL (0.55-1.30); GLOMERULAR FILTRATION RATE 34.1 (>32); PERCENT SATURATION 23.4 % (13.2-45.0); POTASSIUM SERUM 4.4 MMOL/L (3.5-5.1); SODIUM LEVEL 136.0 MMOL/L (136-145)
[2025-03-06 18:40] LABS: FREE T4 1.05 NG/DL (0.89-1.76)
== END ==
LOC: M LABDRWCV 17:26
PROVIDERS: ATTEND Internal Medicine Medical Oncology
DX: C22.0 Liver cell carcinoma (principal); Z79.899 Other long term (current) drug therapy

== ENCOUNTER → 2025-04-11 | Outpatient (CLI) | payer MEDICARE, MEDICAID ==
[~2025-04-11] MED LIST changes: +ELIQ5TAB PO
== END ==
LOC: M CLY 11:21
PROVIDERS: ATTEND Physician Assistant Medical
DX: R05.3 Chronic cough (principal)

== ENCOUNTER → 2025-04-12 | Outpatient (CLI) | payer MEDICARE, MEDICAID ==
[~2025-04-12] MED LIST changes: +ISOVUE-370 76% 100 ML VIAL As Ordered ONE
== END ==
LOC: M RAD 14:59
PROVIDERS: ATTEND Internal Medicine Medical Oncology
DX: C22.0 Liver cell carcinoma (principal); R91.8 Other nonspecific abnormal finding of lung field; I70.0 Atherosclerosis of aorta; I25.10 Atherosclerotic heart disease of native coronary artery without angina pectoris; K74.60 Unspecified cirrhosis of liver
CPT/HCPCS: 71260; Q9967

== ENCOUNTER → 2025-04-26 | Outpatient (CLI) | payer MEDICARE, MEDICAID ==
[~2025-04-26] MED LIST changes: +GADOXETATE DISODIUM 2.5 MMOL/10 ML VIAL ONE; -ISOVUE-370 76% 100 ML VIAL As Ordered ONE
== END ==
LOC: M PLAIMG 08:03
PROVIDERS: ATTEND Internal Medicine Medical Oncology
DX: C22.0 Liver cell carcinoma (principal); K74.60 Unspecified cirrhosis of liver; K76.89 Other specified diseases of liver; I87.8 Other specified disorders of veins
CPT/HCPCS: 74183; A9581

== ENCOUNTER → 2025-04-27 | Outpatient (CLI) | payer MEDICARE, MEDICAID ==
[~2025-04-27] MED LIST changes: +AMLO25TA PO; -GADOXETATE DISODIUM 2.5 MMOL/10 ML VIAL ONE; +ISOVUE-370 76% 100 ML VIAL ONE
== END ==
LOC: M PLAIMG 07:42
PROVIDERS: ATTEND Physician Assistant Medical
DX: J98.4 Other disorders of lung (principal); R06.02 Shortness of breath; R91.8 Other nonspecific abnormal finding of lung field
CPT/HCPCS: 71275; Q9967

== ENCOUNTER → 2025-05-09 | Outpatient (REF) | payer MEDICARE, MEDICAID ==
[~2025-05-09] MED LIST changes: -ISOVUE-370 76% 100 ML VIAL ONE
[2025-05-09 18:04] LABS: CALCIUM LEVEL 8.8 MG/DL (8.3-10.6); CARBON DIOXIDE LEVEL 31.0 MMOL/L (20-31); CHLORIDE LEVEL 100.0 MMOL/L (98-107); CREATININE FOR GFR 1.44 MG/DL (0.55-1.30); GLOMERULAR FILTRATION RATE 35.0 (>32); POTASSIUM SERUM 4.6 MMOL/L (3.5-5.1); SODIUM LEVEL 139.0 MMOL/L (136-145)
== END ==
LOC: M LABDRWCV 17:20
PROVIDERS: ATTEND Internal Medicine Medical Oncology
DX: C22.0 Liver cell carcinoma (principal)

== ENCOUNTER → 2025-05-11 | Outpatient (CLI) | payer MEDICARE | LOC: M WHC 09:18 | PROVIDERS: ATTEND Physician Assistant Medical | DX: Z12.31 Encounter for screening mammogram for malignant neoplasm of breast (principal) ==